=== PATIENT | female | born 1970 | race African-American/Black ===

== ENCOUNTER 2016-06-15 06:59 | Emergency (ER) | payer MEDICARE, OTHER ==
[~2016-06-15] VITALS: Ht 175.3 cm; Wt 86.2 kg
[~2016-06-15 06:59] MED LIST: ACYCLOVIR400 MG ORAL; ALBUTEROL SULF8.5 GM INH; ANUSOL-HC CREAM30 GM RECTAL; ASPIR 8181 MG ORAL; ASPIR 8181 MG PO; ASPIRIN EC325 MG PO; ATORVASTATIN CA40 MG PO; AZITHROMYCIN250 MG ORAL; CLONAZEPAM1 M2 ORAL; DIFLUCAN150 MG PO; HYDROCODON-ACE1 EA15 ORAL; IBUPROFEN600 MG ORAL; IBUPROFEN800 MG ORAL; METOPROLOL TART25 MG ORAL; METOPROLOL TART25 MG PO; METOPROLOL TART50 MG PO; MIRTAZAPINE15 M3 ORAL; MONISTAT VAGIN; NORCO 5-325 TA1 EACH ORAL; PERIDEX 0.12% O15 ML ORAL; PREDNISONE20 MG ORAL; PROAIR HFA8.5 GM INH; PROMETHAZINE-D118 ML ORAL; PROZAC20 MG ORAL; TAMIFLU75 MG ORAL; TESSALON PERLE100 M2 ORAL; ULTRAM50 MG ORAL; VISTARIL50 MG ORAL; [UNRECOGNIZED DRUG - OTHER]; fish oil
[2016-06-15 07:15] VITALS: BP 140/84
[2016-06-15] MEDS ORDERED: TAMIFLU75 MG ORAL (07:24)
[2016-06-15] MEDS ORDERED: AZITHROMYCIN250 MG ORAL (07:24)
--- NOTE | 2016-06-15 07:29 | Emergency Room Report ---
History of Present Illness General Chief Complaint: Flu Like Symptoms Source: Patient Present Illness HPI Patient present with several complaints including chills bodyache Complains of runny nose She reports her symptoms started yesterday Feels that her kids made her sick Denies any vomiting or diarrhea denies any rash Denies any neck pain or photophobia Denies any abdominal pain As the symptoms persisted patient also felt increased sinus congestion and presents to the ER Allergies: Coded Allergies: PENICILLINS (Verified Allergy, Severe, 08/21/13) vaginal yeast MORPHINE (Verified Adverse Reaction, Severe, 08/21/13) headache Patient History Past Medical History: see triage record Pertinent Family History: none Last Menstrual Period: 06/14/16 Reviewed Nursing Documentation: PMH: Agreed, PSxH: Agreed Nursing Documentation-PMH Past Medical History: No History, Except For Hx Cardiac Problems: Yes - 2011 Hx Hypertension: No Hx Pacemaker: No Hx Asthma: No Hx COPD: No Hx Diabetes: No Hx Cancer: No Hx Gastrointestinal Problems: No Hx Dialysis: No Hx Neurological Problems: No Hx Cerebrovascular Accident: No Hx Seizures: No Review of Systems All Other Systems: negative except mentioned in HPI Physical Exam Vital Signs Date Time Temp Pulse Resp B/P Pulse Ox O2 Delivery O2 Flow Rate FiO2 06/15/16 07:07 98.1 60 18 140/84 99 Room Air Sp02 EP Interpretation: reviewed, normal General Appearance: well appearing, no apparent distress Head: normocephalic, atraumatic Eyes: bilateral eye EOMI, bilateral eye PERRL ENT: hearing grossly normal, normal pharynx, TMs + canals normal, uvula midline , other - clear rhinorrhea Neck: full range of motion, supple, no meningismus, no bony tend Respiratory: lungs clear, normal breath sounds, no rhonchi, no respiratory distress, no retraction, no accessory muscle use Cardiovascular #1: normal peripheral pulses, regular rate, rhythm, no edema, no gallop, no JVD, no murmur Gastrointestinal: normal bowel sounds, non tender, soft, no mass, no organomegaly, non-distended, no guarding, no hernia, no pulsatile mass, no rebound Musculoskeletal: normal inspection Neurologic: oriented x3, responsive, solution coordinator III-XII nml as tested, motor strength/ tone normal, sensory intact Psychiatric: mood/affect normal Skin: normal color, no rash, warm/dry, palpation normal Lymphatic: normal inspection, no adenopathy Medical Decision Making Diagnostic Impression: Primary Impression: Influenza-like symptoms ER Course Patient's symptoms appear to be in line with flulike symptoms multiple other differentials are considered, including but not limited to meningitis Patient however has a fairly benign evaluation Onset of symptoms was yesterday Onset of symptoms was yesterday therefore thought patient might criteria for Tamiflu And at this time will have initial conservative outpatient trial Last Vital Signs Date Time Temp Pulse Resp B/P Pulse Ox O2 Delivery O2 Flow Rate FiO2 06/15/16 07:15 60 18 Room Air 06/15/16 07:15 98.1 140/84 99 Status: unchanged Disposition: HOME, SELF-CARE Condition: Stable Scripts Oseltamivir Phosphate (Tamiflu) 75 Mg Capsule 75 MG ORAL TWICE A DAY for 5 Days, CAP Prov: GALLITO RIGGS D.O. 06/15/16 Patient Instructions: Influenza, Adult, [id number], Viral Respiratory Infection Additional Instructions: Patient is provided with the discharge instructions notified to follow up with primary doctor in the next 2-3 days otherwise return to the er with any worsening symptoms. Please note that this report is being documented using MIGSIF technology. This can lead to erroneous entry secondary to incorrect interpretation by the dictating instrument. GALLITO RIGGS D.O. Jun 15, 2016 07:29
[2016-06-15 07:34] VITALS: BP 140/84
== END 2016-06-15 07:34 | disposition home or self-care (01) ==
LOC: EMR 07:33
DX: J11.1 Influenza due to unidentified influenza virus with other respiratory manifestations (principal)
CPT/HCPCS: 99283

== ENCOUNTER 2016-07-02 10:39 | Emergency (ER) | payer MEDICARE, OTHER ==
[~2016-07-02] VITALS: Ht 177.8 cm; Wt 95.3 kg
[2016-07-02] MEDS ORDERED: ACETAMINOPHEN500 M3 ORAL (11:52)
[2016-07-02] MEDS ORDERED: GUAIFENESIN-CO118 M1 ORAL (11:52)
[2016-07-02 12:27] VITALS: BP 143/88
--- NOTE | 2016-07-02 16:09 | Emergency Room Report ---
History of Present Illness General Chief Complaint: Flu Like Symptoms Source: Patient Present Illness HPI Patient reports sinus pressure, cough, congestion and some sense of malaise and muscle, body aches over the last 2 days. Her son is also emerged department with 3 days of symptoms similarly. They both denies sick contacts. Denies fevers denies inability to take by mouth. No diarrhea, nausea or vomiting reported. Patient reports no recent travel or abnormal foods or excessive drinking. No seasonal allergies reported Allergies: Coded Allergies: PENICILLINS (Verified Allergy, Severe, 08/21/13) vaginal yeast MORPHINE (Verified Adverse Reaction, Severe, 08/21/13) headache Patient History Past Medical History: see triage record Social History: Denies: alcohol use, drug use, smoking Last Menstrual Period: 06/11/16 Now: No Immunizations: UTD Reviewed Nursing Documentation: PMH: Agreed Nursing Documentation-PMH Past Medical History: No History, Except For Hx Cardiac Problems: Yes - [place] 4-5 years ago Hx Hypertension: Yes Hx Pacemaker: No Hx Asthma: No Hx COPD: No Hx Diabetes: No Hx Cancer: No Hx Gastrointestinal Problems: No Hx Dialysis: No Hx Neurological Problems: No Hx Cerebrovascular Accident: No Hx Seizures: No Review of Systems Constitutional: Reports: malaise, Denies: chills, fever Respiratory: Reports: cough, Denies: MCLEAN Cardiovascular: Denies: chest pain, edema, palpitations Gastrointestinal: Denies: abdominal pain All Other Systems: negative except mentioned in HPI Physical Exam Vital Signs Date Time Temp Pulse Resp B/P Pulse Ox O2 Delivery O2 Flow Rate FiO2 07/02/16 11:00 98.1 70 16 138/83 99 Room Air Sp02 EP Interpretation: reviewed, normal General Appearance: normal inspection, well appearing, no apparent distress, alert Head: atraumatic Eyes: bilateral eye normal inspection ENT: normal ENT inspection, hearing grossly normal, normal voice Neck: normal inspection, full range of motion, supple, no bony tend Respiratory: normal inspection, lungs clear, normal breath sounds, no respiratory distress, no retraction, no wheezing Cardiovascular #1: regular rate, rhythm, no edema Gastrointestinal: normal inspection, normal bowel sounds, non tender, soft, no guarding, no hernia Genitourinary: no CVA tenderness Musculoskeletal: normal inspection, back normal, normal range of motion Neurologic: normal inspection, alert, responsive, speech normal Psychiatric: normal inspection, judgement/insight normal, mood/affect normal Skin: normal inspection, normal color, no rash Medical Decision Making Diagnostic Impression: Primary Impression: Upper respiratory infection Additional Impression: Influenza-like symptoms ER Course Overall well-appearing woman with no acute abnormal physical findings. History and symptoms are consistent with likely upper respiratory infection, likely caught from her son. Patient was referred to followup with primary care, increase fluid intake and avoid other sick contacts as well as good hygiene, she 'll be given medications for muscle aches as well as cough treatment. Last Vital Signs Date Time Temp Pulse Resp B/P Pulse Ox O2 Delivery O2 Flow Rate FiO2 07/02/16 12:27 73 18 Room Air 07/02/16 12:27 98.1 143/88 99 Disposition: HOME, SELF-CARE Condition: Stable Scripts Guaifenesin/Codeine Phos* (ROBITUSSIN AC*) 118 Ml Liquid 5 ML ORAL Q6H Y for For Cough, #118 ML 0 Refills Prov: Raymond Fishman MD 07/02/16 Acetaminophen* (ACETAMINOPHEN EXTRA STRENGTH*) 500 Mg Tablet 1000 MG ORAL Q8H Y for Fever/Headache/Mild Pain, #30 TAB Prov: Raymond Fishman MD 07/02/16 Referrals: NON PHYSICIAN (PCP) Patient Instructions: Upper Respiratory Infection, Adult, Chest Pain, Pediatric , Upper Respiratory Infection, Pediatric Additional Instructions: p Please followup with your primary care DrSanty, take medications as provided and practice good hygiene, rest and drink plenty of fluids. Raymond Fishman MD Jul 02, 2016 16:09
== END 2016-07-02 12:34 | disposition home or self-care (01) ==
LOC: EMR 12:00
DX: J06.9 Acute upper respiratory infection, unspecified (principal); J11.1 Influenza due to unidentified influenza virus with other respiratory manifestations; Z88.6 Allergy status to analgesic agent; Z88.0 Allergy status to penicillin; I10 Essential (primary) hypertension; I25.2 Old myocardial infarction
CPT/HCPCS: 99284

== ENCOUNTER 2016-10-16 11:43 | Inpatient (IN) | payer MEDICARE, OTHER ==
[2016-10-16] VITALS (8 sets, daily range): BP systolic 124–146; BP diastolic 66–106
[~2016-10-16] VITALS: Ht 175.3 cm; Wt 94.3 kg
[~2016-10-16 11:43] MED LIST changes: +ACETAMINOPHEN500 M3 ORAL; +GUAIFENESIN-CO118 M1 ORAL
[2016-10-16] MEDS ORDERED: Albuterol ud Inhalation HHN ONE (12:30)
[2016-10-16] MEDS ORDERED: Ipratropium 0.02% Inh Soln 2.5ml UD HHN ONE (12:30)
[2016-10-16] MEDS ORDERED: Solu-MEDROL 125mg Inj IVP ONE (12:30)
[2016-10-16 12:50] LABS: BASOPHILS % (AUTO) 0.9 % (0.0-2.0); EOSINOPHILS % (AUTO) 1.9 % (0.0-3.0); LYMPHOCYTES % (AUTO) 31.5 % (20.0-45.0); MEAN CORPUSCULAR HEMOGLOBIN 29.3 PG (27.0-31.0); MEAN CORPUSCULAR HGB CONC 32.6 G/DL (32.0-36.0); MEAN CORPUSCULAR VOLUME 90 FL (80-99); MEAN PLATELET VOLUME 10.5 FL (6.5-10.1); MONOCYTES % (AUTO) 7.1 % (1.0-10.0); NEUTROPHILS % (AUTO) 58.5 % (45.0-75.0); PLATELET COUNT 252 K/UL (150-450); RED BLOOD COUNT 5.04 M/UL (4.20-5.40); RED CELL DISTRIBUTION WIDTH 12.9 % (11.6-14.8); WHITE BLOOD COUNT 3.7 K/UL (4.8-10.8)
[2016-10-16 13:01] LABS: TROPONIN I < 0.30 ng/mL (<=0.30)
[2016-10-16 13:05] LABS: ALANINE AMINOTRANSFERASE 54 U/L (3-33); ALBUMIN/GLOBULIN RATIO 1.3 (1.0-2.7); ANION GAP 12 (5-15); ASPARTATE AMINO TRANSFERASE 64 U/L (5-40); CALCIUM 8.4 mg/dL (8.6-10.2); CARBON DIOXIDE 26 mEQ/L (20-30); CHLORIDE 100 mEQ/L (98-107); GLOMERULAR FILTRATION RATE > 60 mL/min (>60); HEMOLYSIS 10; POTASSIUM 4.3 mEQ/L (3.4-4.9); SODIUM 138 mEQ/L (135-145); TOTAL PROTEIN 6.5 g/dL (6.6-8.7)
[2016-10-16 13:16] LABS: CKMB < 1.5 ng/mL (< 3.8)
[2016-10-16 13:47] LABS: BILIRUBIN,DIRECT 0.2 mg/dL (0.1-0.3)
[2016-10-16] MEDS ORDERED: LORazepam Inj 2mg/ml 1ml IV ONE (14:15)
[2016-10-16 14:25] LABS: APPEARANCE,URINE CLEAR; KETONES,URINE NEGATIVE (NEGATIVE); LEUKOCYTE ESTERASE ,URINE NEGATIVE (NEGATIVE); NITRITE,URINE NEGATIVE (NEGATIVE); PH,URINE 7 (4.5-8.0); PROTEIN,URINE 1+ (NEGATIVE); UROBILINOGEN,URINE 8 MG/DL (0.0-1.0)
[2016-10-16 14:43] LABS: BACTERIA,URINE OCCASIONAL /HPF; HYALINE CASTS, URINE 0-2 /LPF; RBC,URINE 0-2 /HPF (0 - 2); SQUAMOUS EPITHELIAL CELL,UR OCCASIONAL /LPF (NONE/OCC); TRICHOMONAS,URINE FEW /HPF; WBC,URINE 0-2 /HPF (0 - 2)
--- NOTE | 2016-10-16 15:37 | Diagnostic Imaging Report ---
ndication: SOB, chest pain Technique: IV administration nonionic contrast. Spiral acquisitions obtained from the lung bases to the lung apices. Multiplanar and 3-D reconstructions were generated. Total dose length product 1306 mGycm. CTDIvol(s) 12, 12, 126, 34 mGy. Dose reduction achieved using automated exposure control Comparison: None Findings: There is good quality opacification of the pulmonary arteries. No intraluminal filling defects or other findings to suggest acute pulmonary embolus demonstrated. No evidence of thoracic aortic aneurysm or dissection. Pulmonary arteries are ectatic but not frankly dilated. Heart size is normal and there is no evidence of right ventricular dilatation Fairly extensive interstitial septal thickening is seen in the upper lobes bilaterally. This is also seen at the lung bases. The lower lobes and inferior upper lobes demonstrate groundglass opacity in a heterogeneous but diffuse distribution. There are bilateral small pleural effusions. No evidence of pericardial effusion. No mediastinal or hilar mass or adenopathy. Included portions of the thyroid are unremarkable. No axillary or chest wall mass or adenopathy. The included upper abdomen is remarkable for considerable reflux into the hepatic veins. Impression: Negative for evidence of acute pulmonary embolus Diffuse interstitial septal thickening. Bibasilar ground glass opacities. These are nonspecific findings with a wide differential. However, presence of bilateral pleural fluid and hepatic venous reflux suggests central venous hypertension, which raises the possibility of pulmonary edema as etiology of these findings Mild ectasia of the pulmonary arteries, suggestive of but not diagnostic for pulmonary arterial hypertension The CT scanner at [facility] is accredited by the [employer] and the scans are performed using protocols designed to limit radiation exposure to as low as reasonably achievable to attain images of sufficient resolution adequate for diagnostic evaluation.
--- NOTE | 2016-10-16 16:17 | Diagnostic Imaging Report ---
Indication: SOB Technique: One view of the chest Comparison: 10/24/2015 Findings: The heart is borderline enlarged. There is suggestion of mild interstitial congestion. This is probably new or increased from the previous study, although comparison is difficult due to slight differences in exposure technique. Pleural spaces are clear. Small effusions demonstrated on subsequent CT scan are not visible on plain radiography Impression: Interstitial congestion, confirmed on subsequent CT scan. No focal airspace consolidation Borderline cardiomegaly
[2016-10-16 16:20] LABS: ABG BASE EXCESS -2.1; ABG PCO2 32.3 mmHg (35.0-45.0)
[2016-10-16 16:21] LABS: ABG ALLEN TEST POSITIVE
--- NOTE | 2016-10-16 18:36 | Emergency Room Report ---
History of Present Illness General Chief Complaint: Upper Respiratory Illness Source: Patient Present Illness HPI 46-year-old female presents to ED for evaluation. States that she's been increasingly short of breath for the last few weeks. Has been here multiple times for similar presentation. Was told it was a bronchitis or upper respiratory infection. Given breathing treatments and inhalers. States it never helps. Patient states that the shortness of breath is getting worse. States that her PMD believes that his anxiety and prescribed her Xanax which makes her fall sleep. Denies any fevers or chills. Denies cough. Patient is supposed to be referred to a lung specialist but has not yet gotten an appointment. no other aggravating or relieving factors. denies any other assocaited symptoms Allergies: Coded Allergies: PENICILLINS (Verified Allergy, Severe, 08/21/13) vaginal yeast MORPHINE (Verified Adverse Reaction, Severe, 08/21/13) headache Patient History Past Medical History: HTN, [place] Past Surgical History: none Pertinent Family History: none Social History: Denies: alcohol use, drug use, smoking Last Menstrual Period: na Now: No Immunizations: UTD Reviewed Nursing Documentation: PMH: Agreed, PSxH: Agreed Nursing Documentation-PMH Past Medical History: No History, Except For Hx Cardiac Problems: Yes - [place] 4-5 years ago Hx Hypertension: Yes Hx Pacemaker: No Hx Asthma: No Hx COPD: No Hx Diabetes: No Hx Cancer: No Hx Gastrointestinal Problems: No Hx Dialysis: No Hx Neurological Problems: No Hx Cerebrovascular Accident: No Hx Seizures: No Review of Systems All Other Systems: negative except mentioned in HPI Physical Exam Vital Signs Date Time Temp Pulse Resp B/P Pulse Ox O2 Delivery O2 Flow Rate FiO2 10/16/16 11:48 97.7 56 22 124/74 95 Room Air 10/16/16 12:35 2.0 28 Sp02 EP Interpretation: reviewed, normal General Appearance: no apparent distress, alert, GCS 15, non-toxic Head: normocephalic, atraumatic Eyes: bilateral eye PERRL, bilateral eye normal inspection ENT: hearing grossly normal, normal pharynx, no angioedema, normal voice Neck: full range of motion, supple/symm/no masses Respiratory: chest non-tender, lungs clear, normal breath sounds, speaking full sentences Cardiovascular #1: regular rate, rhythm, no edema Cardiovascular #2: 2+ carotid (R), 2+ carotid (L), 2+ radial (R), 2+ radial (L) , 2+ dorsalis pedis (R), 2+ dorsalis pedis (L) Gastrointestinal: normal bowel sounds, non tender, soft, non-distended, no guarding, no rebound Rectal: deferred Genitourinary: normal inspection, no CVA tenderness Musculoskeletal: back normal, gait/station normal, normal range of motion, non- tender Neurologic: alert, oriented x3, responsive, motor strength/tone normal, sensory intact, speech normal Psychiatric: judgement/insight normal, memory normal, mood/affect normal, no suicidal/homicidal ideation Reflexes: 3+ bicep (R), 3+ bicep (L), 3+ tricep (R), 3+ tricep (L), 3+ knee (R) , 3+ knee (L) Skin: normal color, no rash, warm/dry, well hydrated Lymphatic: no adenopathy Medical Decision Making Diagnostic Impression: Primary Impression: Dyspnea Qualified Codes: R06.00 - Dyspnea, unspecified Additional Impression: Hypoxia ER Course Hospital Course 46-year-old female presents to ED complaining of shortness of breath, difficulty breathing Differential diagnoses include: NV/unstable angina, pneumonia, CHF, PE Clinical course Patient placed on stretcher. on cardiac tech. After initial history and physical I ordered labs, EKG, chest x-ray, nebulizer treatments labs reviewed- no leukocytosis, hb/hct stable, electrolytes ok, d-dimer elevated , BNP elevated EKG - NSR, no acute changes interptreted by me Chest x-ray- cardiomegaly, interstitial congestion CTA Chest no PE However patient remains short of breath. ABG shows PO2 in the 60s I believe patient will require admission for further workup Case discussed with Dr. Davila and he agreed to accept the patient to his service for further care and support I. I feel this is a highly complex case requiring extensive working including EKG/Rhythm strip, Xray/CT/US, Blood/urine lab work, repeat exams while in ED, and administration of strong opiates/narcotics for pain control, admission to hospital or close patient follow up. Diagnosis - dyspnea, hypoxia admitted to telemetry in serious condition Labs Test 10/16/16 12:30 10/16/16 13:59 10/16/16 15:53 White Blood Count 3.7 K/UL (4.8-10.8) Red Blood Count 5.04 M/UL (4.20-5.40) Hemoglobin 14.8 G/DL (12.0-16.0) Hematocrit 45.2 % (37.0-47.0) Mean Corpuscular Volume 90 FL (80-99) Mean Corpuscular Hemoglobin 29.3 PG (27.0-31.0) Mean Corpuscular Hemoglobin Concent 32.6 G/DL (32.0-36.0) Red Cell Distribution Width 12.9 % (11.6-14.8) Platelet Count 252 K/UL (150-450) Mean Platelet Volume 10.5 FL (6.5-10.1) Neutrophils (%) (Auto) 58.5 % (45.0-75.0) Lymphocytes (%) (Auto) 31.5 % (20.0-45.0) Monocytes (%) (Auto) 7.1 % (1.0-10.0) Eosinophils (%) (Auto) 1.9 % (0.0-3.0) Basophils (%) (Auto) 0.9 % (0.0-2.0) D-Dimer 682 ng/mL (<500) Sodium Level 138 mEQ/L (135-145) Potassium Level 4.3 mEQ/L (3.4-4.9) Chloride Level 100 mEQ/L (98-107) Carbon Dioxide Level 26 mEQ/L (20-30) Anion Gap 12 (5-15) Blood Urea Nitrogen 11 mg/dL (7-23) Creatinine 1.0 mg/dL (0.5-0.9) Estimat Glomerular Filtration Rate > 60 mL/min (>60) Glucose Level 78 mg/dL (74-106) Calcium Level 8.4 mg/dL (8.6-10.2) Total Bilirubin 1.2 mg/dL (0.0-1.2) Direct Bilirubin 0.2 mg/dL (0.1-0.3) Aspartate Amino Transf (AST/SGOT) 64 U/L (5-40) Alanine Aminotransferase (ALT/SGPT) 54 U/L (3-33) Alkaline Phosphatase 91 U/L (35-104) Total Creatine Kinase 74 U/L (26-140) Creatine Kinase MB < 1.5 ng/mL (< 3.8) Creatine Kinase MB Relative Index 2.0 Troponin I < 0.30 ng/mL (<=0.30) Pro-B-Type Natriuretic Peptide 734 pg/mL (0-125) Total Protein 6.5 g/dL (6.6-8.7) Albumin 3.7 g/dL (3.5-5.2) Globulin 2.8 g/dL Albumin/Globulin Ratio 1.3 (1.0-2.7) Urine Color Yellow Urine Appearance Clear Urine pH 7 (4.5-8.0) Urine Specific [place] 1.015 (1.005-1.035) Urine Protein 1+ (NEGATIVE) Urine Glucose (UA) Negative (NEGATIVE) Urine Ketones Negative (NEGATIVE) Urine Occult Blood Negative (NEGATIVE) Urine Nitrite Negative (NEGATIVE) Urine Bilirubin Negative (NEGATIVE) Urine Urobilinogen 8 MG/DL (0.0-1.0) Urine Leukocyte Esterase Negative (NEGATIVE) Urine RBC 0-2 /HPF (0 - 2) Urine WBC 0-2 /HPF (0 - 2) Urine Squamous Epithelial Cells Occasional /LPF Urine Bacteria Occasional /HPF (NONE) Urine Hyaline Casts 0-2 /LPF (NONE) Urine Trichomonas Few /HPF (NONE) Urine HCG, Qualitative Negative Arterial Blood pH 7.433 (7.350-7.450) Arterial Blood Partial Pressure CO2 32.3 mmHg (35.0-45.0) Arterial Blood Partial Pressure O2 64.0 mmHg (75.0-100.0) Arterial Blood HCO3 21.1 mmol/L (22.0-26.0) Arterial Blood Oxygen Saturation 83.9 % (92.0-98.0) Arterial Blood Base Excess -2.1 Yaniv Test Positive EKG Diagnostic Results Rate: normal Rhythm: NSR ST Segments: no acute changes ASA given to the pt in ED: No Rhythm Strip Diag. Results EP Interpretation: yes Rhythm: NSR, no PVC's, no ectopy Chest X-Ray Diagnostic Results Chest X-Ray Ordered: Yes # of Views/Limited/Complete: 1 View Interpretation: no consolidation, no effusion, no pneumothorax, no acute cardiopulmonary disease Indication: Shortness of Breath Impression: Other - interstitial congestion. borderline cardiomegaly Date Electronically Signed: Oct 16, 2016 Time Electronically Signed: 18:42 Interpreting ER Physician: Dmitri Evans MD CT/MRI/US Diagnostic Results CT/MRI/US Diagnostic Results : Imaging Test Ordered: CTA chest Impression no evidence of PE. ? pulmonary hypertension Last Vital Signs Date Time Temp Pulse Resp B/P Pulse Ox O2 Delivery O2 Flow Rate FiO2 10/16/16 18:15 63 18 140/106 99 Non-Rebreather 10.0 10/16/16 13:43 98.1 28 Status: improved Disposition: ADMITTED INPATIENT Condition: Serious Referrals: [facility],REFERRING (PCP) DMITRI EVANS M.D. Oct 16, 2016 18:36
--- NOTE | 2016-10-16 20:24 | Cardiology Progress Note ---
Assessment/Plan Assessment/Plan The patient is seen and examined, full consult note is dictated. Objective Last 24 Hour Vital Signs Date Time Temp Pulse Resp B/P Pulse Ox O2 Delivery O2 Flow Rate FiO2 10/16/16 20:00 98.7 64 22 146/87 100 Non-Rebreather 10.0 10/16/16 18:59 98.1 63 18 140/106 99 Non-Rebreather 10.0 10/16/16 18:15 63 18 140/106 99 Non-Rebreather 10.0 10/16/16 17:17 58 18 145/89 93 Non-Rebreather 10.0 10/16/16 15:56 61 18 141/82 91 Non-Rebreather 10.0 10/16/16 15:05 74 18 129/75 99 Nasal Cannula 2.0 10/16/16 13:43 98.1 71 18 125/90 100 Nasal Cannula 2.0 28 10/16/16 12:39 78 20 100 Nasal Cannula 2.0 28 10/16/16 12:38 28 10/16/16 12:37 76 20 100 Nasal Cannula 2.0 28 10/16/16 12:35 76 20 Nasal Cannula 2.0 28 10/16/16 11:57 56 22 Room Air 10/16/16 11:57 97.7 22 124/74 95 Room Air 10/16/16 11:48 97.7 56 22 124/74 95 Room Air Laboratory Tests Test 10/16/16 12:30 10/16/16 13:59 10/16/16 15:53 White Blood Count 3.7 K/UL (4.8-10.8) L Red Blood Count 5.04 M/UL (4.20-5.40) Hemoglobin 14.8 G/DL (12.0-16.0) Hematocrit 45.2 % (37.0-47.0) Mean Corpuscular Volume 90 FL (80-99) Mean Corpuscular Hemoglobin 29.3 PG (27.0-31.0) Mean Corpuscular Hemoglobin Concent 32.6 G/DL (32.0-36.0) Red Cell Distribution Width 12.9 % (11.6-14.8) Platelet Count 252 K/UL (150-450) Mean Platelet Volume 10.5 FL (6.5-10.1) H Neutrophils (%) (Auto) 58.5 % (45.0-75.0) Lymphocytes (%) (Auto) 31.5 % (20.0-45.0) Monocytes (%) (Auto) 7.1 % (1.0-10.0) Eosinophils (%) (Auto) 1.9 % (0.0-3.0) Basophils (%) (Auto) 0.9 % (0.0-2.0) D-Dimer 682 ng/mL (<500) H Sodium Level 138 mEQ/L (135-145) Potassium Level 4.3 mEQ/L (3.4-4.9) Chloride Level 100 mEQ/L (98-107) Carbon Dioxide Level 26 mEQ/L (20-30) Anion Gap 12 (5-15) Blood Urea Nitrogen 11 mg/dL (7-23) Creatinine 1.0 mg/dL (0.5-0.9) H Estimat Glomerular Filtration Rate > 60 mL/min (>60) Glucose Level 78 mg/dL (74-106) Calcium Level 8.4 mg/dL (8.6-10.2) L Total Bilirubin 1.2 mg/dL (0.0-1.2) Direct Bilirubin 0.2 mg/dL (0.1-0.3) Aspartate Amino Transf (AST/SGOT) 64 U/L (5-40) H Alanine Aminotransferase (ALT/SGPT) 54 U/L (3-33) H Alkaline Phosphatase 91 U/L (35-104) Total Creatine Kinase 74 U/L (26-140) Creatine Kinase MB < 1.5 ng/mL (< 3.8) Creatine Kinase MB Relative Index 2.0 Troponin I < 0.30 ng/mL (<=0.30) Pro-B-Type Natriuretic Peptide 734 pg/mL (0-125) H Total Protein 6.5 g/dL (6.6-8.7) L Albumin 3.7 g/dL (3.5-5.2) Globulin 2.8 g/dL Albumin/Globulin Ratio 1.3 (1.0-2.7) Urine Color Yellow Urine Appearance Clear Urine pH 7 (4.5-8.0) Urine Specific [place] 1.015 (1.005-1.035) Urine Protein 1+ (NEGATIVE) H Urine Glucose (UA) Negative (NEGATIVE) Urine Ketones Negative (NEGATIVE) Urine Occult Blood Negative (NEGATIVE) Urine Nitrite Negative (NEGATIVE) Urine Bilirubin Negative (NEGATIVE) Urine Urobilinogen 8 MG/DL (0.0-1.0) H Urine Leukocyte Esterase Negative (NEGATIVE) Urine RBC 0-2 /HPF (0 - 2) Urine WBC 0-2 /HPF (0 - 2) Urine Squamous Epithelial Cells Occasional /LPF Urine Bacteria Occasional /HPF (NONE) Urine Hyaline Casts 0-2 /LPF (NONE) H Urine Trichomonas Few /HPF (NONE) H Urine HCG, Qualitative Negative Urine Opiates Screen Negative (NEGATIVE) Urine Barbiturates Screen Negative (NEGATIVE) Phencyclidine (PCP) Screen Negative (NEGATIVE) Urine Amphetamines Screen Negative (NEGATIVE) Urine Benzodiazepines Screen Positive (NEGATIVE) H Urine Cocaine Screen Negative (NEGATIVE) Urine Marijuana (THC) Screen Positive (NEGATIVE) H Arterial Blood pH 7.433 (7.350-7.450) Arterial Blood Partial Pressure CO2 32.3 mmHg (35.0-45.0) L Arterial Blood Partial Pressure O2 64.0 mmHg (75.0-100.0) L Arterial Blood HCO3 21.1 mmol/L (22.0-26.0) L Arterial Blood Oxygen Saturation 83.9 % (92.0-98.0) L Arterial Blood Base Excess -2.1 Yaniv Test Positive HUDSON MAGALLON Oct 16, 2016 20:24
[2016-10-16] MEDS ORDERED: ALPRAZOLAM1 MG ORAL (21:00)
[2016-10-16] MEDS ORDERED: DuoNeb 0.5-3(2.5)mg/3ml neb HHN PRN (21:30)
--- NOTE | 2016-10-17 00:30 | Consultation ---
DATE OF CONSULTATION: 10/16/2016 CARDIOLOGY CONSULTATION REFERRING PHYSICIAN: Jd Davila M.D. REASON FOR CONSULTATION: Management of dyspnea. HISTORY OF PRESENT ILLNESS: The patient is a very pleasant 46-year-old female, who presents to the hospital for evaluation and management of dyspnea. The patient has been having trouble with dyspnea in the past. She states that in the past it has been worse. She has been under full cardiac workup by her felt puller, who concluded that her shortness of breath is not caused by her heart. She is awaiting to see a Pulmonary as an outpatient. She decided to come to the hospital as the shortness of breath was going out of control. She said that she works out about five weeks a week and does not seem to have trouble with shortness of breath, however, she does get wheezing and she has reported her wheezing for lung specialist. Denies any prior history of congestive heart failure. PAST MEDICAL HISTORY: Questionable myocardial infarction in the past as well as history of hypertension. As mentioned above cardiac workup by felt puller has been negative. PAST SURGICAL HISTORY: None. MEDICATIONS: List of medications at home includes acetaminophen 1000 mg q.8 h. p.r.n. fever, headaches and migraine, aspirin 81 mg p.o. daily, both in the list of medications, atorvastatin 40 mg p.o. daily, clonazepam 1 mg p.o. at bedtime, Prozac 20 mg p.o. daily, metoprolol 25 mg three times daily, and mirtazapine 7.5 mg at bedtime. ALLERGIES: Penicillin and morphine. FAMILY HISTORY: No premature coronary artery disease in first-degree relatives. REVIEW OF SYSTEMS: A 12-system review done essentially negative except what mentioned in the history of present illness. SOCIAL HISTORY: Denies any tobacco, alcohol, or illicit drug use. PHYSICAL EXAMINATION: VITAL SIGNS: Blood pressure is 146/87, respirations 32, pulse of 64, temperature 98.7 degrees Fahrenheit, and O2 saturation of 100% on non-rebreather mask 10 liters per minute flow. HEENT: Atraumatic and normocephalic. Anicteric. Pupils are equal, round, and reactive to light and accommodation. Extraocular muscles intact. NECK: JVP less than 5 centimeter. No carotid bruits. Carotid upstrokes 2+ bilaterally. CARDIOVASCULAR: Normal S1 and S2. Regular rate and rhythm. No murmurs, gallops, or rubs. PMI is at fourth intercostal space in the mid clavicular line. LUNGS: Clear to auscultation bilaterally. ABDOMEN: Soft, nontender, and nondistended. No hepatosplenomegaly. Positive bowel sounds. EXTREMITIES: No evidence of edema, clubbing, or cyanosis. LABORATORY AND DIAGNOSTIC DATA: Chest x-ray shows no acute cardiopulmonary disease. A CT of chest with contrast showed no evidence of pulmonary embolism. Laboratory findings, WBC is 3.7, hemoglobin of 14.8, hematocrit of 45.2, and platelet count is 252,000. Sodium was 138, potassium 4.3, chloride 100, bicarbonate 26, BUN of 11, creatinine 1.0 and glucose 78. Calcium is 8.4. ProBNP was 734. Troponin I less than 0.3. Her D-dimer is 682. Toxicology was positive for benzodiazepines and marijuana. ASSESSMENT AND PLAN: The patient is a very unfortunate 36-year-old female, seen in Cardiology consultation at request of Dr. Davila. 1. Dyspnea, unlikely to be cardiac in origin, although there is some elevation of proBNP and chest x-ray is showing no evidence of crackles. Chest x-ray also appears to be clear. I would like to obtain 2D echocardiography for assessment of left ventricular systolic and diastolic function and also evaluation of intracardiac filling pressures. 2. History of hypertension, the patient is currently on metoprolol. We may have to switch the patient on amlodipine for better control. I would like to thank, Dr. Davila, for allowing me to participate in the care of this patient. Freddy Quan M.D. DR: ALEXEI JOB#: [id number] CC:
--- NOTE | 2016-10-17 12:15 | Discharge Summary ---
Discharge Summary Hospital Course Date of Admission Oct 16, 2016 at 18:22 Date of Discharge Oct 16, 2016 at 23:30 Admitting Diagnosis SOB HPI Fauzia Schuster is a 46 year old female who was admitted on Oct 16, 2016 at 18: 22 for Short Of Breath Hospital Course [id number] Discharge Discharge Disposition Patient was discharged to Acute Care Facility(02) Discharge Diagnoses: Kasey Gupta NP Oct 17, 2016 12:15
--- NOTE | 2016-10-18 02:30 | History and Physical Report ---
DATE OF ADMISSION: 10/16/2016 HISTORY OF PRESENT ILLNESS: This is a 46-year-old female, who came to the hospital with dyspnea. She is . She reports that she has had a previous workup with Cardiology that has been negative. Apparently, she has some issues with Pulmonology and will be seen ____ outpatient. PAST MEDICAL HISTORY: She had crackles with auscultation pulmonary fibrosis. unremarkable. MEDICATIONS: Home medications Lipitor, clonazepam, Prozac, metoprolol, mirtazapine, and morphine. REVIEW OF SYSTEMS: Denies any headaches, hematemesis, melena, hematochezia, . PHYSICAL EXAMINATION: GENERAL: The patient is a 46-year-old female. VITAL SIGNS: . HEENT: Unremarkable. CHEST: Clear breath sounds bilaterally. ABDOMEN: Soft. EXTREMITIES: There is no edema. No cyanosis or clubbing. NEUROLOGIC: Nonfocal. LABORATORY DATA: Unremarkable. IMPRESSION: 1. Probable pulmonary fibrosis. 2. Rule out congestive heart failure. DISCUSSION: The patient will be seen by Cardiology . At this point, she is stable for transfer to facility. Discussed with . We will arrange transfer to facility. Jd Davila M.D. DR: Merlin JOB#: [id number] CC:
--- NOTE | 2016-10-18 09:30 | Discharge Summary 2 SIG ---
DATE OF ADMISSION: 10/16/2016 DATE OF DISCHARGE: 10/16/2016 [facility]: Freddy Quan M.D. BRIEF HOSPITAL COURSE: The patient is a 46-year-old female, who presented to ED complaining of upper respiratory illness and was previously diagnosed with bronchitis and upper respiratory infection and was given breathing treatments and inhalers, however, treatment did not help. She presented to ED with worsening symptoms and on evaluation labs showed no leukocytosis. D-dimer was elevated. BNP was elevated. Chest x-ray showed interstitial congestion. She was given nebulizer treatments and ABG showed PO2 in the 60s. The patient remained short of breath. She was admitted to telemetry. CTA of the chest done was negative for PE. She was seen by Dr. Quan. She was eventually transferred to [facility]. FINAL DIAGNOSES: 1. Probable pulmonary fibrosis. 2. Rule out congestive heart failure. Jd Davila M.D. I have been assigned to dictate discharge summary on this account and I was not involved in the patient's management. Kasey Gupta N.P. DR: NAVNEET JOB#: [id number] CC: VIOLETA
== END 2016-10-16 23:30 | disposition short-term general hospital (02) | DRG 204 ==
LOC: EMR 12:18 → 2E 18:22 → EDBEDREQ 18:32 → 2E 20:14
DX: R06.00 Dyspnea, unspecified (principal); I10 Essential (primary) hypertension; R09.02 Hypoxemia; Z88.6 Allergy status to analgesic agent
CPT/HCPCS: 36415; 36600; 71010; 71275; 80053; 80300; 81003; 81025; 82248; 82550; 82553; 82803; 83880; 84484; 85025; 85379; 93005; 94640; 94664; J7620

== ENCOUNTER 2016-12-04 16:09 | Emergency (ER) | payer MEDICARE, OTHER ==
[~2016-12-04] VITALS: Ht 177.8 cm; Wt 89.8 kg
[~2016-12-04 16:09] MED LIST changes: +ALPRAZOLAM1 MG ORAL
[2016-12-04 17:06] LABS: APPEARANCE,URINE SLIGHTLY CLOUDY; KETONES,URINE NEGATIVE (NEGATIVE); LEUKOCYTE ESTERASE ,URINE 3+ (NEGATIVE); NITRITE,URINE NEGATIVE (NEGATIVE); PH,URINE 5 (4.5-8.0); PROTEIN,URINE NEGATIVE (NEGATIVE); UROBILINOGEN,URINE NORMAL MG/DL (0.0-1.0)
[2016-12-04 17:14] LABS: BACTERIA,URINE FEW /HPF; SQUAMOUS EPITHELIAL CELL,UR MODERATE /LPF (NONE/OCC)
[2016-12-04 17:21] VITALS: BP 153/89
[2016-12-04] MEDS ORDERED: METRONIDAZOLE500 MG ORAL (17:26)
[2016-12-04 17:31] VITALS: BP 153/89
--- NOTE | 2016-12-04 21:43 | Emergency Room Report ---
History of Present Illness General Chief Complaint: Female Urogenital Problems Source: Patient Present Illness [facility] The patient is a 46-year-old female presenting for vaginal itching and pain. This began yesterday. She admits to having intercourse with her male partner recently for the first time. Pain described as an 8/10 burning sensation to the vaginal area. She has had a thin white vaginal discharge. Pain does not radiate. Worse with touch. She denies dysuria, hematuria. She denies any back pain or other symptoms Allergies: Coded Allergies: PENICILLINS (Verified Allergy, Severe, 08/21/13) vaginal yeast MORPHINE (Verified Adverse Reaction, Severe, 08/21/13) headache Patient History Past Medical History: see triage record Pertinent Family History: none Last Menstrual Period: on period now Now: No Reviewed Nursing Documentation: PMH: Agreed, PSxH: Agreed Nursing Documentation-PMH Hx Cardiac Problems: Yes - [place] 4-5 years ago Hx Hypertension: Yes Hx Pacemaker: No Hx Asthma: No Hx COPD: No Hx Diabetes: No Hx Cancer: No Hx Gastrointestinal Problems: No Hx Dialysis: No Hx Neurological Problems: No Hx Cerebrovascular Accident: No Hx Seizures: No Review of Systems All Other Systems: negative except mentioned in HPI Physical Exam Vital Signs Date Time Temp Pulse Resp B/P Pulse Ox O2 Delivery O2 Flow Rate FiO2 12/04/16 16:17 98.1 65 14 158/92 99 Room Air Sp02 EP Interpretation: reviewed, normal General Appearance: no apparent distress, alert, GCS 15, non-toxic Head: normocephalic, atraumatic Eyes: bilateral eye PERRL, bilateral eye normal inspection ENT: hearing grossly normal, normal pharynx, no angioedema, normal voice Neck: full range of motion, supple/symm/no masses Gastrointestinal: normal bowel sounds, non tender, soft, non-distended, no guarding, no rebound Genitourinary: normal inspection, no CVA tenderness Musculoskeletal: back normal, gait/station normal, normal range of motion, non- tender Neurologic: alert, oriented x3, responsive, motor strength/tone normal, sensory intact, speech normal Psychiatric: judgement/insight normal, memory normal, mood/affect normal, no suicidal/homicidal ideation Skin: normal color, no rash, warm/dry, well hydrated Medical Decision Making PA Attestation Dr. Chavez is my supervising physician. Patient management was discussed with my supervising physician Diagnostic Impression: Primary Impression: BV (bacterial vaginosis) ER Course The patient is a 46-year-old female presenting for vaginal itching, pain, and discharge Differential diagnosis considered but not limited to: UTI, vaginitis, pyelonephritis, STD, among others Physical exam is unremarkable Urinalysis shows white blood cells with few bacteria. Negative nitrites. The patient will be treated for BV based on symptoms primarily. She will follow up with primary doctor. ER precautions are given Laboratory Tests Test 12/04/16 16:33 Urine Color Yellow Urine Appearance Slightly cloudy Urine pH 5 (4.5-8.0) Urine Specific [place] 1.025 (1.005-1.035) Urine Protein Negative (NEGATIVE) Urine Glucose (UA) Negative (NEGATIVE) Urine Ketones Negative (NEGATIVE) Urine Occult Blood 2+ (NEGATIVE) H Urine Nitrite Negative (NEGATIVE) Urine Bilirubin Negative (NEGATIVE) Urine Urobilinogen Normal MG/DL (0.0-1.0) Urine Leukocyte Esterase 3+ (NEGATIVE) H Urine RBC 5-10 /HPF (0 - 2) H Urine WBC 5-10 /HPF (0 - 2) H Urine Squamous Epithelial Cells Moderate /LPF (NONE/OCC) H Urine Bacteria Few /HPF (NONE) Lab Results Impression Urinalysis shows white blood cells with some bacteria. Last Vital Signs Date Time Temp Pulse Resp B/P Pulse Ox O2 Delivery O2 Flow Rate FiO2 12/04/16 17:31 98.3 69 15 153/89 99 Room Air Status: improved Disposition: HOME, SELF-CARE Condition: Improved Scripts Metronidazole* (FLAGYL*) 500 Mg Tablet 500 MG ORAL Q12HR, #14 TAB Prov: MAJO ALVES 12/04/16 Patient Instructions: Bacterial Vaginosis Additional Instructions: I discussed my findings with the patient. All questions and concerns have been answered. Treatment and medication compliance have been addressed. I advised the patient that they need to follow up with PMD in 3-5 days. Return to ED if symptoms worsen, new symptoms arise, or if needed for any reason. Patient verbalized understanding of discharge instructions. MAJO ALVES Dec 04, 2016 21:43
== END 2016-12-04 17:32 | disposition home or self-care (01) ==
LOC: EMR 16:51
DX: N76.0 Acute vaginitis (principal); I10 Essential (primary) hypertension; I25.2 Old myocardial infarction
CPT/HCPCS: 81003; 99283

== ENCOUNTER 2017-01-24 20:29 | Emergency (ER) | payer MEDICARE, OTHER ==
[~2017-01-24] VITALS: Ht 177.8 cm; Wt 99.8 kg
[~2017-01-24 20:29] MED LIST changes: +METRONIDAZOLE500 MG ORAL
[2017-01-24] MEDS ORDERED: NORCO 5-325 TA1 EACH ORAL (20:46)
[2017-01-24 20:50] VITALS: BP 167/90
[2017-01-24] MEDS ORDERED: LD2JL30 TOPIC (20:56)
[2017-01-24] MEDS ORDERED: COLACE100 MG ORAL (20:56)
[2017-01-24] MEDS ORDERED: fentaNYL 100 mcg/2 mL IV ONE (21:00)
--- NOTE | 2017-01-24 21:03 | Emergency Room Report ---
History of Present Illness General Chief Complaint: Pain Source: Patient Present Illness HPI 46YOF walk-in with severe pain s/p outpatient surgery at [facility] this morning for "dysplasia of rectum." After she went home and "numbing medication wore off" took multiple doses of norco without improvement Does not have other pain meds or stool softener Is "scared to have a bowel movement." Denies adb pain, nausea/vomiting, blood in stool, rectal bleed Had same surgery last year without this much post-op pain Allergies: Coded Allergies: PENICILLINS (Verified Allergy, Severe, 08/21/13) vaginal yeast MORPHINE (Verified Adverse Reaction, Severe, 08/21/13) headache Patient History Past Medical History: none Past Surgical History: none Pertinent Family History: none Social History: Denies: smoking, alcohol use, drug use Last Menstrual Period: Last month Now: No Immunizations: UTD Reviewed Nursing Documentation: PMH: Agreed, PSxH: Agreed Nursing Documentation-PMH Past Medical History: No History, Except For Hx Cardiac Problems: Yes - [place] 4-5 years ago Hx Hypertension: No Hx Pacemaker: No Hx Asthma: No Hx COPD: No Hx Diabetes: No Hx Cancer: No Hx Gastrointestinal Problems: No Hx Dialysis: No Hx Neurological Problems: No Hx Cerebrovascular Accident: No Hx Seizures: No Review of Systems All Other Systems: negative except mentioned in HPI Physical Exam Vital Signs Date Time Temp Pulse Resp B/P (MAP) Pulse Ox O2 Delivery O2 Flow Rate FiO2 01/24/17 20:40 98.4 79 16 167/90 98 Room Air Sp02 EP Interpretation: reviewed, normal General Appearance: normal inspection, well appearing, no apparent distress, alert, GCS 15, non-toxic, other - Writhing, tearful Head: normocephalic, atraumatic Eyes: bilateral eye PERRL, bilateral eye EOMI Neck: normal inspection, full range of motion, supple, no bony tend Respiratory: normal inspection, lungs clear, normal breath sounds, no respiratory distress, no retraction, no wheezing Cardiovascular #1: regular rate, rhythm, no edema Gastrointestinal: normal inspection, normal bowel sounds, non tender, soft, no guarding, no hernia Rectal: normal exam, normal rectal tone, other - There are 2-3 small sutures at 9'oclock position on rectum. Mild ttp. No active bleeding. No ttp or induration/erythema amy-rectally Genitourinary: no CVA tenderness Musculoskeletal: normal inspection, back normal, normal range of motion, Mayra' s Sign negative Neurologic: normal inspection, alert, oriented x3, responsive, firer tunnel kiln III-XII nml as tested, motor strength/tone normal, speech normal Psychiatric: normal inspection, judgement/insight normal, mood/affect normal Skin: normal inspection, normal color, no rash Lymphatic: normal inspection Medical Decision Making Diagnostic Impression: Primary Impression: Rectal pain ER Course Post-op rectal pain Pain at suture/laceration site at 9'oclock Likely normal post-op pain Unlikely rectal abscess/infection given surgery was <12 hours prior No pus, no drainage, no active bleeding or sign of infection Was given IV fentanyl in ED for pain control Rx Colace Rx Topical lido Strongly encouraged to call her surgeon TOMORROW Last Vital Signs Date Time Temp Pulse Resp B/P (MAP) Pulse Ox O2 Delivery O2 Flow Rate FiO2 01/24/17 20:40 98.4 79 16 167/90 98 Room Air Status: improved Disposition: HOME, SELF-CARE Condition: Improved Scripts Lidocaine HCL 2% Jelly* (Lidocaine Jelly 2%*) 5 Ml Jel.pf.pradeep 5 ML TOPIC TID for rectal pain for 7 Days, #1 UNIT Prov: KEYON VARELA M.D. 01/24/17 Docusate Sodium* (COLACE*) 100 Mg Capsule 100 MG ORAL TWICE A DAY for 7 Days, #14 CAP Prov: KEYON VARELA M.D. 01/24/17 Patient Instructions: Laceration Care, Adult, [id number] Additional Instructions: - Call your surgeon TOMORROW that you had to go to the ER with severe rectal pain - Take colace twice a day as long as you are taking [place] for pain - Can also apply lidocaine jelly to are of pain on rectum KEYON VARELA M.D. Jan 24, 2017 21:03
[2017-01-24 21:35] VITALS: BP 167/90
== END 2017-01-24 21:35 | disposition home or self-care (01) ==
LOC: EMR 21:22
DX: K62.89 Other specified diseases of anus and rectum (principal); Z98.890 Other specified postprocedural states; I25.2 Old myocardial infarction; Z88.6 Allergy status to analgesic agent; Z88.2 Allergy status to sulfonamides
CPT/HCPCS: 96374; 99284; J3010

== ENCOUNTER 2017-12-21 09:27 | Emergency (ER) | payer MEDICARE ==
[~2017-12-21] VITALS: Ht 177.8 cm; Wt 106.1 kg
[~2017-12-21 09:27] MED LIST changes: +COLACE100 MG ORAL; +LD2JL30 TOPIC
[2017-12-21] MEDS ORDERED: ROBAXIN-750750 MG PO (09:34)
[2017-12-21] MEDS ORDERED: Ketorolac 60mg Inj IM ONE (10:00)
[2017-12-21 10:33] LABS: APPEARANCE,URINE CLEAR; BILIRUBIN, URINE NEGATIVE (NEGATIVE); COLOR,URINE PALE YELLOW; GLUCOSE, URINE (UA) NEGATIVE (NEGATIVE); KETONES,URINE NEGATIVE (NEGATIVE); LEUKOCYTE ESTERASE ,URINE 2+ (NEGATIVE); NITRITE,URINE NEGATIVE (NEGATIVE); PH,URINE 5 (4.5-8.0); PROTEIN,URINE NEGATIVE (NEGATIVE); UROBILINOGEN,URINE NORMAL MG/DL (0.0-1.0)
--- NOTE | 2017-12-21 11:18 | Diagnostic Imaging Report ---
Chest PA and lateral views INDICATION: Pain COMPARISON: Chest x-ray dated 10/16/16 FINDINGS: PA and lateral views of the chest are obtained. The cardiomediastinal silhouette is within normal limits. Increased pulmonary markings suggestive of congestion. No pleural effusions. Bony elements are within normal limits. IMPRESSION: Increased pulmonary markings suggestive of congestion.
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
[2017-12-21] MEDS ORDERED: PERCOCET 5-3251 EACH ORAL (12:09)
[2017-12-21] MEDS ORDERED: NITROFURANTOIN100 M2 ORAL (12:09)
[2017-12-21 12:22] VITALS: BP 140/80
== END 2017-12-21 12:22 | disposition home or self-care (01) ==
LOC: EMR 09:48
DX: N39.0 Urinary tract infection, site not specified (principal); M54.9 Dorsalgia, unspecified; V42 Car occupant injured in collision with two- or three-wheeled motor vehicle; Y92.410 Unspecified street and highway as the place of occurrence of the external cause; I25.2 Old myocardial infarction; Z88.0 Allergy status to penicillin; Z88.8 Allergy status to other drugs, medicaments and biological substances
CPT/HCPCS: 71046; 81001; 81025; 87086; 87181; 96372; 99283

== ENCOUNTER 2018-01-28 07:54 | Emergency (ER) | payer MEDICARE, MEDICAID ==
[~2018-01-28] VITALS: Ht 177.8 cm; Wt 108.0 kg
[~2018-01-28 07:54] MED LIST changes: +NITROFURANTOIN100 M2 ORAL; +PERCOCET 5-3251 EACH ORAL; +ROBAXIN-750750 MG PO
[2018-01-28 08:00] VITALS: BP 137/87
--- NOTE | 2018-01-28 08:50 | Emergency Room Report ---
History of Present Illness General Chief Complaint: General Complaint Source: Patient Present Illness HPI This patient is complaining of insomnia. She has used Ambien, Ativan in the past but states her PMD is out of town. Requested prescriptions. No trauma, no fever, no shortness of breath, no travel history, no leg swelling, no chest pain , no diaphoresis, no exertional complaints, no nausea, no vomiting, no diarrhea , no abdominal pain. Tolerating po fine, normal urinary output, normal bm. No syncope, LOC, dizziness, lightheadedness, headache. No recent surgery. Allergies: Coded Allergies: PENICILLINS (Verified Allergy, Severe, 08/21/13) vaginal yeast MORPHINE (Verified Adverse Reaction, Severe, 08/21/13) headache Patient History Last Menstrual Period: 12/20/2017 Nursing Documentation-[facility] Past Medical History: No History, Except For Hx Cardiac Problems: Yes - [place] 2010 Hx Hypertension: No Hx Pacemaker: No Hx Asthma: No Hx COPD: No Hx Diabetes: No Hx Cancer: No Hx Gastrointestinal Problems: No Hx Dialysis: No Hx Neurological Problems: No Hx Cerebrovascular Accident: No Hx Seizures: No Review of Systems Constitutional: Reports: no symptoms Eye: Reports: no symptoms ENT: Reports: no symptoms Respiratory: Reports: no symptoms Cardiovascular: Reports: no symptoms Gastrointestinal: Reports: no symptoms Genitourinary: Reports: no symptoms Musculoskeletal: Reports: no symptoms Skin: Reports: no symptoms Psychiatric: Reports: no symptoms Neurological: Reports: no symptoms Endocrine: Reports: no symptoms Hematologic/Lymphatic: Reports: no symptoms Allergic: Reports: no symptoms All Other Systems: negative except mentioned in HPI Physical Exam Vital Signs Date Time Temp Pulse Resp B/P (MAP) Pulse Ox O2 Delivery O2 Flow Rate FiO2 01/28/18 08:00 97.8 63 14 137/87 96 Room Air 97.8 Sp02 EP Interpretation: reviewed, normal General Appearance: normal inspection, well appearing, no apparent distress, alert, GCS 15, non-toxic Head: normocephalic, atraumatic Eyes: bilateral eye normal inspection, bilateral eye PERRL, bilateral eye EOMI ENT: normal ENT inspection, hearing grossly normal, normal pharynx, no angioedema, normal voice, moist mucus membranes Neck: normal inspection, full range of motion, supple, no meningismus, no bony tend Respiratory: normal inspection, lungs clear, normal breath sounds, no rhonchi, no respiratory distress, no retraction, no accessory muscle use, no wheezing Cardiovascular #1: normal inspection, regular rate, rhythm, no edema Gastrointestinal: normal inspection, normal bowel sounds, non tender, soft, no mass, non-distended Musculoskeletal: gait/station normal, normal range of motion Neurologic: normal inspection, alert, oriented x3, responsive, motor strength/ tone normal Psychiatric: normal inspection, judgement/insight normal, memory normal Suicide Risk Assessment: Suicidal Ideation: No Had intent to initiate attempt: No Pt's plan for suicide attempt: No Has means to complete attempt: No Skin: normal inspection, normal color, no rash, warm/dry Medical Decision Making Diagnostic Impression: Primary Impression: Anxiety and depression Last Vital Signs Date Time Temp Pulse Resp B/P (MAP) Pulse Ox O2 Delivery O2 Flow Rate FiO2 01/28/18 08:00 98.2 63 14 137/87 96 Room Air 98.2 Status: unchanged Disposition: AGAINST MEDICAL ADVICE Referrals: NON PHYSICIAN (PCP) Patient Instructions: Diphenhydramine disintegrating tablet (Insomnia), Insomnia Mg Mclean M.D. Jan 28, 2018 08:50
[2018-01-28] MEDS ORDERED: BENADRYL25 M3 PO (08:52)
[2018-01-28 09:11] LABS: APPEARANCE,URINE TURBID; BILIRUBIN, URINE NEGATIVE (NEGATIVE); GLUCOSE, URINE (UA) NEGATIVE (NEGATIVE); KETONES,URINE NEGATIVE (NEGATIVE); LEUKOCYTE ESTERASE ,URINE 1+ (NEGATIVE); NITRITE,URINE NEGATIVE (NEGATIVE); PH,URINE 6.5 (4.5-8.0); PROTEIN,URINE 1+ (NEGATIVE); UROBILINOGEN,URINE NORMAL MG/DL (0.0-1.0)
[2018-01-28 09:12] LABS: COLOR,URINE YELLOW
[2018-01-28 09:26] VITALS: BP 128/76
== END 2018-01-28 09:27 | disposition left against medical advice (07) ==
LOC: EMR 08:20
DX: F41.9 Anxiety disorder, unspecified (principal); F32.9 Major depressive disorder, single episode, unspecified; I25.2 Old myocardial infarction
CPT/HCPCS: 81001; 99283

== ENCOUNTER 2018-08-28 20:40 | Emergency (ER) | payer MEDICARE, OTHER ==
[~2018-08-28] VITALS: Ht 177.8 cm; Wt 108.9 kg
[~2018-08-28 20:40] MED LIST changes: +BENADRYL25 M3 PO
[2018-08-28] MEDS ORDERED: LIPITOR40 MG ORAL (20:52)
--- NOTE | 2018-08-28 21:07 | Emergency Room Report ---
History of Present Illness General Chief Complaint: Pain Source: Patient Present Illness HPI This is a 48-year-old female with history of anxiety. She presents with chief complaint of body pain and shoulder pain. She had a personal lines sales rep helping her with going to the gym. She was just doing weights. He was 2-1/2 pounds weights that she was lifting with her arms in a circular motion. She woke up today with diffuse shoulder pain and arm pain. No trauma. Pain is 10 out of 10. No relief with Soma. No relief with her Percocet. Denies any other complaint. No nausea no vomiting. No chest pain. Allergies: Coded Allergies: PENICILLINS (Verified Allergy, Severe, 08/21/13) vaginal yeast MORPHINE (Verified Adverse Reaction, Severe, 08/21/13) headache Patient History Past Medical History: see triage record, old chart reviewed Past Surgical History: other Pertinent Family History: none Social History: Denies: smoking Last Menstrual Period: last month Now: No Immunizations: other Reviewed Nursing Documentation: PMH: Agreed; PSxH: Agreed Nursing Documentation-PMH Hx Cardiac Problems: Yes - 2010 Hx Hypertension: No Hx Pacemaker: No Hx Asthma: No Hx COPD: No Hx Diabetes: No Hx Cancer: No Hx Gastrointestinal Problems: No Hx Dialysis: No Hx Neurological Problems: No Hx Cerebrovascular Accident: No Hx Seizures: No Review of Systems Eye: Denies: eye pain, blurred vision ENT: Denies: ear pain, nose congestion, throat swelling Respiratory: Denies: cough, shortness of breath Cardiovascular: Denies: chest pain, palpitations Gastrointestinal: Denies: abdominal pain, diarrhea, nausea, vomiting Musculoskeletal: Reports: muscle pain; Denies: back pain, joint pain Skin: Denies: rash Neurological: Denies: headache, numbness Endocrine: Denies: increased thirst, increased urine Hematologic/Lymphatic: Denies: easy bruising All Other Systems: negative except mentioned in HPI Physical Exam Vital Signs Date Time Temp Pulse Resp B/P (MAP) Pulse Ox O2 Delivery O2 Flow Rate FiO2 08/28/18 20:44 98.1 91 20 130/72 99 Room Air vitals normal Sp02 EP Interpretation: reviewed, normal General Appearance: well appearing, no apparent distress, alert Head: normocephalic, atraumatic Eyes: bilateral eye PERRL, bilateral eye EOMI ENT: hearing grossly normal, normal pharynx Neck: full range of motion, supple, no meningismus Respiratory: chest non-tender, lungs clear, normal breath sounds Cardiovascular #1: regular rate, rhythm, no murmur Gastrointestinal: normal bowel sounds, non tender, no mass, no organomegaly, no bruit, non-distended Musculoskeletal: back normal, gait/station normal, normal range of motion, other - Diffuse tenderness mostly left shoulder trapezius area. Neurologic: alert, oriented x3 Psychiatric: anxious Skin: warm/dry Medical Decision Making Diagnostic Impression: Primary Impression: Myalgia ER Course Patient with muscle pain from going to the gym. No evidence of any ACS, PE, dissection. Based on the weights that she use, unlikely to cause rhabdomyolysis. Discharge home. Last Vital Signs Date Time Temp Pulse Resp B/P (MAP) Pulse Ox O2 Delivery O2 Flow Rate FiO2 08/28/18 20:44 98.1 91 20 130/72 99 Room Air Status: improved Disposition: HOME, SELF-CARE Condition: Stable Scripts Ibuprofen* (MOTRIN*) 600 Mg Tablet 600 MG ORAL THREE TIMES A DAY, #30 TAB 0 Refills Prov: Abram Das MD 08/28/18 Additional Instructions: Follow-up with your doctor in 7 days. Return if symptom worsen. Abram Das MD Aug 28, 2018 21:06
[2018-08-28] MEDS ORDERED: IBUPROFEN600 MG ORAL (21:10)
[2018-08-28 21:15] VITALS: BP 130/72
[2018-08-28] MEDS ORDERED: Ketorolac 60mg Inj IM ONE (21:15)
--- NOTE | 2018-08-28 21:16 | NUR ---
ED Nurse Note: Patient walked in to ER c/o left shoulder pain after work out. Per patient she started to do heavy weights for upper body since yesterday, and she pulled her left shoulder so bad. AAO x4, VSDS at this time, skin is dry, intact.
[2018-08-28 21:21] VITALS: BP 130/72
--- NOTE | 2018-08-28 21:31 | NUR ---
ED Nurse Note: Pt cleared by health care Provider for discharge. DC instructions/prescription was given and explained to pt and verbalized understanding of teachings. All medical deviecs such as ID band removed. Pt is AAO x4, ambulatory and left with all personal belongings.
== END 2018-08-28 21:20 | disposition home or self-care (01) ==
LOC: EMR 21:09
DX: M79.10 Myalgia, unspecified site (principal); I25.2 Old myocardial infarction
CPT/HCPCS: 96372; 99283

== ENCOUNTER 2018-11-23 17:35 | Emergency (ER) | payer MEDICARE, OTHER ==
[~2018-11-23] VITALS: Ht 177.8 cm; Wt 108.0 kg
[~2018-11-23 17:35] MED LIST changes: +LIPITOR40 MG ORAL
[2018-11-23 18:16] VITALS: BP 121/88
--- NOTE | 2018-11-23 18:17 | NUR ---
ED Nurse Note: pt walked in to ER and stated "My PH balance is off." pt aao x4 and ambulatory. no acute distress noted. skin clean and intact. calm and cooperative. pt stated "I know because i smell differently."
[2018-11-23] MEDS ORDERED: METRONIDAZOLE500 MG ORAL (18:24)
[2018-11-23 18:27] VITALS: BP 121/88
--- NOTE | 2018-11-23 18:27 | NUR ---
ER DISCHARGE NOTE: Patient is cleared to be discharged per ERMD, pt is aox4, on room air, with stable vital signs. pt was given dc and prescription instructions, pt was able to verbalize understanding, pt id band removed without complications. pt is able to ambulate with steady gait. pt took all belongings.
--- NOTE | 2018-11-23 20:06 | Emergency Room Report ---
History of Present Illness General Chief Complaint: General Complaint Source: Patient Present Illness HPI 48-year-old female presents ED for evaluation. States that for the last few days she is been having odorous vaginal discharge. Denies any recent unprotected sex. States that she has had BV in the past and feels the same as this. Denies dysuria or hematuria. Denies flank pain. Denies fevers or chills. No other aggravating relieving factors. Denies any other associated symptoms Allergies: Coded Allergies: PENICILLINS (Verified Allergy, Severe, 08/21/13) vaginal yeast MORPHINE (Verified Adverse Reaction, Severe, 08/21/13) headache Patient History Past Medical History: HTN Past Surgical History: none Pertinent Family History: none Social History: Denies: smoking, alcohol use, drug use Last Menstrual Period: 11/19/18 Now: No : 4 Para: 4 Immunizations: UTD Reviewed Nursing Documentation: PMH: Agreed; PSxH: Agreed Nursing Documentation-PMH Past Medical History: No History, Except For Hx Cardiac Problems: No - h/o heart attack Hx Hypertension: Yes Hx Pacemaker: No Hx Asthma: No Hx COPD: No Hx Diabetes: No Hx Cancer: No Hx Gastrointestinal Problems: No Hx Dialysis: No Hx Neurological Problems: No Hx Cerebrovascular Accident: No Hx Seizures: No Review of Systems All Other Systems: negative except mentioned in HPI Physical Exam Vital Signs Date Time Temp Pulse Resp B/P (MAP) Pulse Ox O2 Delivery O2 Flow Rate FiO2 11/23/18 17:40 98.1 68 18 121/88 (99) 94 Room Air Sp02 EP Interpretation: reviewed, normal General Appearance: no apparent distress, alert, GCS 15, non-toxic Head: normocephalic, atraumatic Eyes: bilateral eye normal inspection, bilateral eye PERRL ENT: hearing grossly normal, normal pharynx, no angioedema, normal voice Neck: full range of motion, supple/symm/no masses Respiratory: chest non-tender, lungs clear, normal breath sounds, speaking full sentences Cardiovascular #1: regular rate, rhythm, no edema Cardiovascular #2: 2+ carotid (R), 2+ carotid (L), 2+ radial (R), 2+ radial (L) , 2+ dorsalis pedis (R), 2+ dorsalis pedis (L) Gastrointestinal: normal bowel sounds, non tender, soft, non-distended, no guarding, no rebound Rectal: deferred Genitourinary: normal inspection, no CVA tenderness Musculoskeletal: back normal, gait/station normal, normal range of motion, non- tender Neurologic: alert, oriented x3, responsive, motor strength/tone normal, sensory intact, speech normal Psychiatric: judgement/insight normal, memory normal, mood/affect normal, no suicidal/homicidal ideation Reflexes: 3+ bicep (R), 3+ bicep (L), 3+ tricep (R), 3+ tricep (L), 3+ knee (R) , 3+ knee (L) Lymphatic: no adenopathy Medical Decision Making Diagnostic Impression: Primary Impression: BV (bacterial vaginosis) ER Course Hospital Course 48-year-old female presents ED with discharge. no dysuria Differential diagnoses include: trichimonas, gonorrhea, chlamydia Clinical course Patient placed on stretcher. Initial history and physical reviewed EMR. Patient has been here previously before BV treated. Does not want to check UA. Has no dysuria. Has no concern for STD. Will discharge with Flagyl. Safe for discharge with close outpatient follow-up Diagnosis - Bacterial Vaginosis Stable and discharged home with prescriptions for Rx Flagyl. Instructed to followup with PMD. Return to ED if symptoms recur or worsen Last Vital Signs Date Time Temp Pulse Resp B/P (MAP) Pulse Ox O2 Delivery O2 Flow Rate FiO2 11/23/18 18:27 98.1 68 18 121/88 94 Room Air Status: improved Disposition: HOME, SELF-CARE Condition: Stable Scripts Metronidazole* (FLAGYL*) 500 Mg Tablet 500 MG ORAL BID, #14 TAB Prov: Dmitri Evans MD 11/23/18 Patient Instructions: Bacterial Vaginosis, [id number] Dmitri Evans MD Nov 23, 2018 20:06
== END 2018-11-23 18:27 | disposition home or self-care (01) ==
LOC: EMR 18:19
DX: N76.0 Acute vaginitis (principal); I10 Essential (primary) hypertension; I25.2 Old myocardial infarction; Z88.6 Allergy status to analgesic agent; Z88.0 Allergy status to penicillin
CPT/HCPCS: 99282

== ENCOUNTER 2019-03-30 15:16 | Emergency (ER) | payer MEDICARE, OTHER ==
[~2019-03-30] VITALS: Ht 177.8 cm; Wt 100.7 kg
--- NOTE | 2019-03-30 15:44 | NUR ---
ED Nurse Note: Pt walked into ED from home w/ c/o vaginal smell. Pt states she has no discharge, itching, swelling. No redness. Pt states she has no pain. No acute distress.
[2019-03-30 15:57] VITALS: BP 126/86
--- NOTE | 2019-03-30 15:58 | Emergency Room Report ---
History of Present Illness General Chief Complaint: Vaginal Source: Patient Present Illness HPI 49-year-old female with past medical history here complaining of foul odor coming from the vaginal area x2 days. Patient reports that she recently switched her soap and started feeling follow water. Denies vaginal discharge, urinary frequency, urgency. Reports that has not been sexually active for the past few months. Denies vaginal pruritus and ulceration. Denies fever and chills, abdominal pain, nausea vomiting. Has not taken medication for symptom relief. Last menstrual period was 3 weeks ago and regular. Allergies: Coded Allergies: PENICILLINS (Verified Allergy, Severe, 08/21/13) vaginal yeast MORPHINE (Verified Adverse Reaction, Severe, 08/21/13) headache Patient History Past Medical History: see triage record Past Surgical History: unable to obtain Pertinent Family History: none Last Menstrual Period: 03/09/19 Now: No Immunizations: UTD Reviewed Nursing Documentation: PMH: Agreed; PSxH: Agreed Nursing Documentation-PMH Past Medical History: No Stated History Hx Cardiac Problems: No - h/o heart attack Hx Hypertension: Yes Hx Pacemaker: No Hx Asthma: No Hx COPD: No Hx Diabetes: No Hx Cancer: No Hx Gastrointestinal Problems: No Hx Dialysis: No Hx Neurological Problems: No Hx Cerebrovascular Accident: No Hx Seizures: No Review of Systems All Other Systems: negative except mentioned in HPI Physical Exam Vital Signs Date Time Temp Pulse Resp B/P (MAP) Pulse Ox O2 Delivery O2 Flow Rate FiO2 03/30/19 15:20 98.1 66 18 131/86 (101) 100 Room Air Sp02 EP Interpretation: reviewed, normal General Appearance: no apparent distress, alert, GCS 15, non-toxic Head: normocephalic, atraumatic Eyes: bilateral eye normal inspection, bilateral eye PERRL ENT: hearing grossly normal, normal pharynx, no angioedema, normal voice Neck: full range of motion, supple, no carotid bruits, supple/symm/no masses Respiratory: chest non-tender, lungs clear, normal breath sounds, no rhonchi, no wheezing, speaking full sentences Cardiovascular #1: regular rate, rhythm, no edema, no murmur Gastrointestinal: normal bowel sounds, non tender, soft, non-distended, no guarding, no rebound Rectal: deferred Genitourinary: no CVA tenderness Musculoskeletal: back normal, normal range of motion, gait/station normal, non- tender Neurologic: alert, motor strength/tone normal, oriented x3, sensory intact, responsive, speech normal Psychiatric: judgement/insight normal, memory normal, mood/affect normal, no suicidal/homicidal ideation Skin: no rash Lymphatic: normal inspection, no adenopathy Medical Decision Making JOSE LUIS Attestation Diagnosis and treatment plans were reviewed and discussed with my supervising physician Dr. Dickson Diagnostic Impression: Primary Impression: Vaginitis ER Course 49-year-old female with past medical history here complaining of foul odor coming from the vaginal area x2 days. Patient reports that she recently switched her soap and started feeling follow water. Denies vaginal discharge, urinary frequency, urgency. Reports that has not been sexually active for the past few months. Denies vaginal pruritus and ulceration. Denies fever and chills, abdominal pain, nausea vomiting. Has not taken medication for symptom relief. Last menstrual period was 3 weeks ago and regular. Ddx considered but are not limited to: UTI, vaginitis, gonorrhea, chlamydia, Vital signs: are WNL, pt. is afebrile H&PE are most consistent with: Vaginitis most likely secondary to BV and yeast infection ORDERS: flagyl, diflucan ED INTERVENTIONS: None required at this time. DISCHARGE: At this time pt. is stable for d/c to home. Will provide printed patient care instructions, and any necessary prescriptions. Care plan and follow up instructions have been discussed with the patient prior to discharge. 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
[2019-03-30] MEDS ORDERED: FLUCONAZOLE100 MG ORAL (16:01)
[2019-03-30] MEDS ORDERED: METRONIDAZOLE500 MG ORAL (16:01)
[2019-03-30 16:13] VITALS: BP 123/76
--- NOTE | 2019-03-30 16:15 | NUR ---
ER DISCHARGE NOTE: Patient is cleared to be discharged per ERMD, pt is aox4, on room air, with stable vital signs. pt was given dc and prescription instructions, pt was able to verbalize understanding, pt id band removed. pt is able to ambulate with steady gait. pt took all belongings. 2 presc given.
== END 2019-03-30 16:15 | disposition home or self-care (01) ==
LOC: EMR 16:03
DX: N76.0 Acute vaginitis (principal); I10 Essential (primary) hypertension; Z88.0 Allergy status to penicillin; Z88.5 Allergy status to narcotic agent
CPT/HCPCS: 99282

== ENCOUNTER 2019-04-23 11:08 | Emergency (ER) | payer MEDICARE, OTHER ==
[~2019-04-23] VITALS: Ht 175.3 cm; Wt 104.8 kg
[~2019-04-23 11:08] MED LIST changes: +FLUCONAZOLE100 MG ORAL
[2019-04-23 11:19] VITALS: BP 124/88
--- NOTE | 2019-04-23 11:20 | NUR ---
ED Nurse Note: PT AMBULATED INTO ED FROM WORK. ERMD AT BEDSIDE. PT DENIES TROUBLE BREATHING AND PAIN. PT REPORTS HIGH AMOUNT OF ANXIETY PREVIOUSLY DIAGNOSED AND NEWLY RECURRING. PT REPORTS BEING AFRAID OF BEING ALONE.
--- NOTE | 2019-04-23 11:32 | Emergency Room Report ---
History of Present Illness General Chief Complaint: General Complaint Source: Patient Present Illness HPI Disclaimer: Please note that this report is being documented using [employer] technology. This can lead to erroneous entry secondary to incorrect interpretation by the dictating instrument. HPI: 49-year-old female with a history of CAD status post stenting, hypertension , hyperlipidemia, anxiety and depression presents for evaluation of palpitations and anxiety attack last night. The patient states over the past 2 weeks she has had increasing stress and depressive symptoms. She denies SI/HI however last night she had a rapid heart rate, palpitations, chest squeezing sensation, shortness of breath which she describes as a panic attack. She was formally treated with anxiety but no longer takes any medications. She follows weekly with a psychologist for her anxiety and depression. Currently denying any symptoms but is very emotional and scared that she may have another panic attack at any moment. She has been compliant with her medications. Denies smoking. Denies alcohol or drug use. Currently chest pain-free and arrives with stable vital signs though appears anxious and tearful PMH: CAD status post stenting, hypertension, hyperlipidemia, anxiety, depression PSH: Cardiac stent Allergies: Penicillin and morphine Social Hx: Non-smoker, denies alcohol or drug use Allergies: Coded Allergies: PENICILLINS (Verified Allergy, Severe, 04/23/19) vaginal yeast MORPHINE (Verified Adverse Reaction, Severe, 08/21/13) headache Patient History Last Menstrual Period: CURRENTLY Nursing Documentation-PMH Past Medical History: No History, Except For Hx Cardiac Problems: No - h/o heart attack Hx Hypertension: Yes Hx Pacemaker: No Hx Asthma: No Hx COPD: No Hx Diabetes: No Hx Cancer: No Hx Gastrointestinal Problems: No Hx Dialysis: No Hx Neurological Problems: No Hx Cerebrovascular Accident: No Hx Seizures: No Review of Systems All Other Systems: negative except mentioned in HPI Physical Exam Vital Signs Date Time Temp Pulse Resp B/P (MAP) Pulse Ox O2 Delivery O2 Flow Rate FiO2 04/23/19 11:12 98.1 65 18 124/88 (100) 95 Room Air General: Awake and alert, appears upset HEENT: NC/AT. EOMI. Neck: Supple, trachea midline Chest Wall: No tenderness, no deformity Cardiovascular: RRR. S1 and S2 normal. No murmur appreciated Resp: Normal work of breathing. No cough, wheezing or crackles appreciated Abdomen: Abdomen is soft, nondistended. Nontender Skin: Intact. No abrasions, laceration or rash over the exposed skin MSK: Normal tone and bulk. Moving all extremities. No obvious deformity. Neuro: Awake and alert. Mentating appropriately. Tearful and emotional. Denies SI/HI Medical Decision Making ER Course Is a 49-year-old female presenting for evaluation of a presumed panic attack last night. Patient has a significant cardiac history and will perform a EKG, chest x-ray and labs including troponin to rule out cardiac causes of her chest pain and palpitations last night. She is currently chest pain-free and arrives with stable vital signs. This may be anxiety though will rule out other metabolic and cardiac causes with ED work-up. EKG Diagnostic Results EKG Time: 11:52 Rate: normal Rhythm: NSR ST Segments: no acute changes Other Impression Sinus rhythm, normal axis, normal intervals, no ST segment changes. Inferior Q waves Rhythm Strip Diag. Results Rhythm Strip Time: 11:52 EP Interpretation: yes Rate: 60 Rhythm: NSR, no PVC's, no ectopy Chest X-Ray Diagnostic Results Chest X-Ray Diagnostic Results : Chest X-Ray Ordered: Yes # of Views/Limited/Complete: 1 View Indication: Chest Pain EP Interpretation: Yes Interpretation: no consolidation, no effusion, no pneumothorax, no acute cardiopulmonary disease Impression: No acute disease Electronically Signed by: Electronically signed by Dr. Alejo Pal Reevaluation Time: 13:10 Last Vital Signs Date Time Temp Pulse Resp B/P (MAP) Pulse Ox O2 Delivery O2 Flow Rate FiO2 04/23/19 11:12 98.1 65 18 124/88 (100) 95 Room Air Reevaluation Impression EKG, chest x-ray, blood work including cardiac enzymes are negative. Believe the patient's presentation is consistent with anxiety and acute panic attacks. Patient is already contacted her integration developer while waiting in the emergency department and will be followed up in 1 week at an outpatient visit. We will refill a short 5 dose course of Xanax to use as needed for breakthrough anxiety until she can see her psychologist and PMD. I explained to her that these anxiolytic medications medications have to be regulated and dosed by her primary doctor or by a psychologist as well she will need regular follow-up and possible different medication regimen. Patient is well-appearing with stable vital signs. No chest pain or anxiety reported at this time. She understands and agrees with this treatment plan will be discharged home. Disposition: HOME, SELF-CARE Condition: Stable Scripts Alprazolam* (XANAX*) 0.25 Mg Tablet 0.25 MG ORAL TID PRN for For Anxiety, #5 TAB Prov: Alejo Pal MD 04/23/19 Alejo Pal MD Apr 23, 2019 11:32
--- NOTE | 2019-04-23 12:19 | NUR ---
ER Nurse Note: All orders completed per ERMD orders and awaiting results. Pt a&ox4, VSS, RA, no signs of distress. Pt denies anxitey, shortness of breath, dizziness. All safety measures met; will continue to montior.
[2019-04-23 12:21] LABS: BASOPHILS % (AUTO) 0.9 % (0.0-2.0); EOSINOPHILS % (AUTO) 1.7 % (0.0-3.0); HEMATOCRIT 48.5 % (37.0-47.0); HEMOGLOBIN 16.4 G/DL (12.0-16.0); LYMPHOCYTES % (AUTO) 42.4 % (20.0-45.0); MEAN CORPUSCULAR VOLUME 87 FL (80-99); NEUTROPHILS % (AUTO) 47.9 % (45.0-75.0); PLATELET COUNT 288 K/UL (150-450); RED BLOOD COUNT 5.55 M/UL (4.20-5.40); WHITE BLOOD COUNT 3.9 K/UL (4.8-10.8)
[2019-04-23 12:29] VITALS: BP 122/88
[2019-04-23 12:34] LABS: ANION GAP 9 mmol/L (5-15); BLOOD UREA NITROGEN 11 mg/dL (7-18); CALCIUM 8.9 MG/DL (8.5-10.1); CARBON DIOXIDE 27 MMOL/L (21-32); CHLORIDE 104 MMOL/L (98-107); CREATININE 0.8 MG/DL (0.55-1.30); POTASSIUM 3.8 MMOL/L (3.5-5.1); SODIUM 140 MMOL/L (136-145)
[2019-04-23 12:38] LABS: ALANINE AMINOTRANSFERASE 36 U/L (12-78); ALBUMIN 3.6 G/DL (3.4-5.0); ALKALINE PHOSPHATASE 74 U/L (46-116); ASPARTATE AMINO TRANSFERASE 23 U/L (15-37); BILIRUBIN,TOTAL 0.6 MG/DL (0.2-1.0)
[2019-04-23] MEDS ORDERED: ALPRAZOLAM0.25 MG ORAL (13:09)
[2019-04-23 13:18] VITALS: BP 122/88
--- NOTE | 2019-04-23 13:18 | NUR ---
ER Nurse Note: Pt treated, seen, cleared for discharge by ERMD. Discharge instructions given within repeat verbalization by pt. Encouraged pt to follow up with primary care provider within one week. Pt VSS, no signs of distress, denies pain. SLIV removed, site clean and bandaged; ID band removed. Pt steady gait, left with all belongings.
--- NOTE | 2019-04-23 14:09 | Diagnostic Imaging Report ---
Indication: Chest pain Technique: One view of the chest Comparison: none Findings: Lungs and pleural spaces are clear. Heart size is normal. No significant interim change Impression: No acute process
== END 2019-04-23 13:18 | disposition home or self-care (01) ==
LOC: EMR 12:15
DX: R00.2 Palpitations (principal); F41.9 Anxiety disorder, unspecified; E78.5 Hyperlipidemia, unspecified; I11.9 Hypertensive heart disease without heart failure; I25.10 Atherosclerotic heart disease of native coronary artery without angina pectoris; Z95.5 Presence of coronary angioplasty implant and graft; Z88.0 Allergy status to penicillin; Z88.6 Allergy status to analgesic agent; F32.9 Major depressive disorder, single episode, unspecified; I25.2 Old myocardial infarction
CPT/HCPCS: 36415; 71045; 80053; 84484; 85025; 93005; 99284

== ENCOUNTER 2019-05-21 04:43 | Inpatient (IN) | payer MEDICARE, OTHER ==
[~2019-05-21] VITALS: Ht 177.8 cm; Wt 106.1 kg
[~2019-05-21 04:43] MED LIST changes: +ALPRAZOLAM0.25 MG ORAL
[2019-05-21] MEDS ORDERED: Albuterol/Ipratropium 3ml neb ONE (04:47)
--- NOTE | 2019-05-21 04:52 | Emergency Room Report ---
History of Present Illness General Chief Complaint: Shortness of breath Source: Patient Present Illness HPI 49-year-old female history of hypertension history of CAD history of HI, history of smoking in the past presents with cough, shortness of breath started 1 day ago, no aggravating leaving factors severity is moderate, constant no fevers no chills patient denies any chest pain but she feels very short of breath patient presents for evaluation Allergies: Coded Allergies: PENICILLINS (Verified Allergy, Severe, 04/23/19) vaginal yeast MORPHINE (Verified Adverse Reaction, Severe, 08/21/13) headache Patient History Past Medical History: see triage record Social History: Reports: smoking - No longer smoking but history of smoking Reviewed Nursing Documentation: PMH: Agreed; PSxH: Agreed Nursing Documentation-PMH Hx Cardiac Problems: No - h/o heart attack Hx Hypertension: Yes Hx Pacemaker: No Hx Asthma: No Hx COPD: No Hx Diabetes: No Hx Cancer: No Hx Gastrointestinal Problems: No Hx Dialysis: No Hx Neurological Problems: No Hx Cerebrovascular Accident: No Hx Seizures: No Review of Systems All Other Systems: negative except mentioned in HPI Physical Exam Vital Signs Date Time Temp Pulse Resp B/P (MAP) Pulse Ox O2 Delivery O2 Flow Rate FiO2 05/21/19 04:49 97.2 87 26 164/83 (110) 98 Room Air 05/21/19 04:51 21 Sp02 EP Interpretation: reviewed, normal General Appearance: alert, moderate distress Head: normocephalic, atraumatic Eyes: bilateral eye PERRL, bilateral eye EOMI ENT: uvula midline, moist mucus membranes Neck: supple, thyroid normal, supple/symm/no masses Respiratory: lungs clear, decreased breath sounds, accessory muscle use, speaking full sentences Cardiovascular #1: normal peripheral pulses, regular rate, rhythm, no edema, no gallop, no murmur Gastrointestinal: non tender, soft, no guarding, no rebound Musculoskeletal: normal inspection Neurologic: alert, oriented x3 Psychiatric: anxious Skin: no rash, warm/dry Procedures Critical Care Time Critical Care Time Given the critical condition in which the patient arrived, the patient was immediately assessed by myself and the nurse, and cardiac monitoring initiated due to the potential for rapid decompensation of the patient's clinical condition. During the course of the patient's stay, I spent a considerable amount of time at the bedside performing serial re-evaluations of the patient's hemodynamic and clinical status because of the recognized potential threat to life or limb in this condition. I then had a chance to review not only all of the available current laboratory and radiographic studies obtained today, but I also reviewed old records available to me at the time. Additionally, any ancillary information available including instrument and control service person records were reviewed. Sequential vital signs were obtained. Critical Care time of 31 minutes was performed exclusive of billable procedures. Medical Decision Making Diagnostic Impression: Primary Impression: Dyspnea Qualified Codes: R06.00 - Dyspnea, unspecified Additional Impressions: Pulmonary edema Qualified Codes: J81.0 - Acute pulmonary edema Hypoxia Respiratory distress ER Course 49-year-old female, presents with acute respiratory distress, differential diagnosis includes COPD exacerbation, ACS, panic attacks, CHF exacerbation Patient given duo nebs, labs drawn, ABG drawn ABG shows hypoxia, oxygen provided. We will continue to monitor patient and provide supportive care Reevaluation 5:15 AM patient significantly improved X-ray shows pulmonary edema Nitropaste Nasal Cannula 2L We will admit patient for CHF exacerbation, Lasix given Reeval 6:08am patient slowly improving Patient admitted to Dr. Calderon Laboratory Tests Test 05/21/19 04:55 05/21/19 05:10 White Blood Count 6.7 K/UL (4.8-10.8) Red Blood Count 5.08 M/UL (4.20-5.40) Hemoglobin 15.8 G/DL (12.0-16.0) Hematocrit 45.1 % (37.0-47.0) Mean Corpuscular Volume 89 FL (80-99) Mean Corpuscular Hemoglobin 31.1 PG (27.0-31.0) H Mean Corpuscular Hemoglobin Concent 35.0 G/DL (32.0-36.0) Red Cell Distribution Width 11.8 % (11.6-14.8) Platelet Count 300 K/UL (150-450) Mean Platelet Volume 7.6 FL (6.5-10.1) Neutrophils (%) (Auto) % (45.0-75.0) Lymphocytes (%) (Auto) % (20.0-45.0) Monocytes (%) (Auto) % (1.0-10.0) Eosinophils (%) (Auto) % (0.0-3.0) Basophils (%) (Auto) % (0.0-2.0) Prothrombin Time 9.7 SEC (9.30-11.50) Prothrombin Time INR 0.9 (0.9-1.1) Activated Partial Thromboplast Time 27 SEC (23-33) Sodium Level 140 MMOL/L (136-145) Potassium Level 4.0 MMOL/L (3.5-5.1) Chloride Level 105 MMOL/L (98-107) Carbon Dioxide Level 24 MMOL/L (21-32) Anion Gap 12 mmol/L (5-15) Blood Urea Nitrogen 8 mg/dL (7-18) Creatinine 0.8 MG/DL (0.55-1.30) Estimate Glomerular Filtration Rate > 60 mL/min (>60) Glucose Level 105 MG/DL (74-106) Lactic Acid Level 1.10 mmol/L (0.4-2.0) Calcium Level 8.4 MG/DL (8.5-10.1) L Total Bilirubin 0.6 MG/DL (0.2-1.0) Aspartate Amino Transferase (AST) 34 U/L (15-37) Alanine Aminotransferase (ALT) 57 U/L (12-78) Alkaline Phosphatase 73 U/L (46-116) Troponin I 0.001 ng/mL (0.000-0.056) Pro-B-Type Natriuretic Peptide 921 pg/mL (0-125) H Total Protein 7.1 G/DL (6.4-8.2) Albumin 3.5 G/DL (3.4-5.0) Globulin 3.6 g/dL Albumin/Globulin Ratio 1.0 (1.0-2.7) Lipase 149 U/L (73-393) Arterial Blood pH 7.386 (7.350-7.450) Arterial Blood Partial Pressure CO2 34.7 mmHg (35.0-45.0) L Arterial Blood Partial Pressure O2 71.4 mmHg (75.0-100.0) L Arterial Blood HCO3 20.3 mmol/L (22.0-26.0) L Arterial Blood Oxygen Saturation 93.0 % (95-100) L Arterial Blood Base Excess -3.9 (-2-2) L Yaniv Test Positive EKG Diagnostic Results EKG Time: 04:48 EP Interpretation: NSR, rate 81, QTc 453, no acute ST elevations, normal axis Rhythm Strip Diag. Results Rhythm Strip Time: 04:52 EP Interpretation: yes Rate: 74 Rhythm: NSR, no PVC's, no ectopy Chest X-Ray Diagnostic Results Chest X-Ray Diagnostic Results : Chest X-Ray Ordered: Yes # of Views/Limited/Complete: 1 View Indication: Shortness of Breath EP Interpretation: Yes Interpretation: other - Pulmonary edema Impression: Other - Pulmonary edema acute CHF exacerbation Electronically Signed by: Keven Dickson MD Disposition: ADMITTED INPATIENT Condition: Serious Keven Dickson MD May 21, 2019 04:52
[2019-05-21] MEDS: Ipratropium 0.02% Inh Soln 2.5ml UD HHN SCH ×3 (04:58→05:24)
[2019-05-21] MEDS: Albuterol ud Inhalation HHN SCH ×3 (04:58→05:24)
[2019-05-21] MEDS ORDERED: LORazepam Inj 2mg/ml 1ml IV ONE (05:00)
[2019-05-21] MEDS ORDERED: Solu-MEDROL 125mg Inj IVP ONE (05:00)
--- NOTE | 2019-05-21 05:05 | NUR ---
ED Nurse Note: pt presents to ED c/o dypnea and SOB since last night. pt reports she first thought it was anxiety but it has not improved. pt states that she feels weak and has ahd a cough for a few days. pt is tearful and gasping for air, O2 sat is 99%. pt states she feels px when she coughs
[2019-05-21 05:11] VITALS: BP 164/83
[2019-05-21 05:30] LABS: ANION GAP 12 mmol/L (5-15); BLOOD UREA NITROGEN 8 mg/dL (7-18); CALCIUM 8.4 MG/DL (8.5-10.1); CARBON DIOXIDE 24 MMOL/L (21-32); CHLORIDE 105 MMOL/L (98-107); CREATININE 0.8 MG/DL (0.55-1.30); SODIUM 140 MMOL/L (136-145)
[2019-05-21 05:40] LABS: ALANINE AMINOTRANSFERASE 57 U/L (12-78); ALBUMIN 3.5 G/DL (3.4-5.0); ALKALINE PHOSPHATASE 73 U/L (46-116); ASPARTATE AMINO TRANSFERASE 34 U/L (15-37); BILIRUBIN,TOTAL 0.6 MG/DL (0.2-1.0); INR 0.9 (0.9-1.1)
[2019-05-21 05:45] LABS: HEMATOCRIT 45.1 % (37.0-47.0); HEMOGLOBIN 15.8 G/DL (12.0-16.0); RED BLOOD COUNT 5.08 M/UL (4.20-5.40); WHITE BLOOD COUNT 6.7 K/UL (4.8-10.8)
[2019-05-21 05:46] LABS: MEAN CORPUSCULAR VOLUME 89 FL (80-99); PLATELET COUNT 300 K/UL (150-450); RED CELL DISTRIBUTION WIDTH 11.8 % (11.6-14.8)
[2019-05-21] MEDS ORDERED: Nitroglycerin 2% oint pkt TOPIC ONE (06:15)
--- NOTE | 2019-05-21 06:21 | NUR ---
ED Nurse Note: per ERMD orders, pt put on 4L nasal cannula, SpO2: 99%
[2019-05-21 06:40] VITALS: BP 145/85
--- NOTE | 2019-05-21 06:40 | NUR ---
ED Nurse Note: pt in no acute distress, SpO2 at 89% on 2L nasal cannula, ERMD notified and changed order to simple mask. pt put on simple mask at 8L, pt SpO2 is 95% tolerating well. will continue to monitor
--- NOTE | 2019-05-21 07:05 | NUR ---
HAND-OFF: Report given to NALLELY Dhaliwal
[2019-05-21 07:20] VITALS: BP 124/79
--- NOTE | 2019-05-21 07:22 | NUR ---
ED Nurse Note: Patient sleeping in bed on left lateral position with pulse oximetry reading 95% with N/C 4L. Regular, unlabored breathing noted. No facial grimacing or guarding noted. Patient has continuous cardiac monitoring on. Bed in lowest position.
[2019-05-21] MEDS ORDERED: METOPROLOL SUCC25 MG ORAL (07:47)
[2019-05-21] MEDS ORDERED: ASPIRIN81 MG ORAL (07:47)
--- NOTE | 2019-05-21 08:38 | Diagnostic Imaging Report ---
Indication: Cough Technique: One view of the chest Comparison: 04/23/2019 Findings: Interim development of bilateral interstitial and airspace infiltrates versus edema. The heart is upper limits normal in size. The pleural spaces are grossly clear. Impression: Bilateral diffuse interstitial and airspace infiltrates versus edema
--- NOTE | 2019-05-21 09:00 | NUR ---
ED Nurse Note: Patient resting in bed with eyes closed. Patient reports decreased SOB and no chest pain at this time. Bed in lowest position.
--- NOTE | 2019-05-21 10:21 | NUR ---
TRANSFER TO FLOOR: Patient transferred to as ordered. Report given to NALLELY Garcia. Belongings and medications taken to telemetry unit.
--- NOTE | 2019-05-21 10:30 | NUR ---
NURSE NOTES: Patient's transferred from ER by darlene with assistance of NALLELY Grissom and hvac controls technician. Patient's in stable condition, no s/s of distress or SOB, denies pain, AAO x 4, ambulates steady. Patient's on 2L NC. IV is saline locked, patent and asymptomatic. Bed low and locked, call light within reach, side rails x 2, bed alarm is armed, branch banker is applied. Patient's belonging list went over with both nurses and patient at bedside. Patient would like to keep her money in the safe. Told patient that home housekeeper and security will come and count the money with her and keep the money in the safe with the receipt will be given to her for proof. Vital signs are stable: BP 123/77, MA 95, RR 21, O2 92%, Temp 98.2. Contacted Dr. Calderon and Dr. Napier's for admission orders. Awaiting for response.
[2019-05-21] MEDS ORDERED: LORazepam Inj 2mg/ml 1ml IV PRN (11:15)
[2019-05-21] MEDS ORDERED: Promethazine/Codeine 5ml UD ORAL PRN (11:15)
[2019-05-21] MEDS ORDERED: Lidocaine 1% MPF 10mg/ml 5ml HHN PRN (11:15)
[2019-05-21] MEDS ORDERED: Nitroglycerin Subl 0.4mg tab SL PRN (11:15)
--- NOTE | 2019-05-21 11:24 | Consultation ---
History of Present Illness General Date patient seen: May 21, 2019 Chief Complaint: Upper Respiratory Illness Present Illness HPI 49 year old female with hx of CAD, stent X2 in 2008, ex drug abuser, presented to Er with CC of refractory cough with some blood tinged phlegm. She has some sick contact with people who had flu. Allergies: Coded Allergies: PENICILLINS (Verified Allergy, Severe, 04/23/19) vaginal yeast MORPHINE (Verified Adverse Reaction, Severe, 08/21/13) headache Medication History Scheduled Aspirin* (Aspirin*), 81 MG ORAL DAILY, (Reported) Metoprolol Succinate* (Metoprolol Succinate*), 25 MG ORAL DAILY, (Reported) Scheduled PRN Alprazolam* (Xanax*), 0.25 MG ORAL TID PRN for For Anxiety Patient History Healthcare decision maker Resuscitation status Advanced Directive on File Past Medical/Surgical History Past Medical/Surgical History: (1) Stented coronary artery (2) CAD (coronary artery disease) (3) Anxiety and depression Review of Systems All Other Systems: negative except mentioned in HPI Physical Exam General Appearance: WD/WN, no apparent distress Lines, tubes and drains: peripheral HEENT: normocephalic, anicteric Neck: non-tender, normal alignment Respiratory/Chest: chest wall non-tender, lungs clear Cardiovascular/Chest: normal peripheral pulses, normal rate Abdomen: normal bowel sounds, non tender Genitourinary/Rectal: normal genital exam Extremities: normal range of motion Neurologic: document controller II-XII grossly normal Last 24 Hour Vital Signs Date Time Temp Pulse Resp B/P (MAP) Pulse Ox O2 Delivery O2 Flow Rate FiO2 05/21/19 10:20 77 18 122/72 95 Nasal Cannula 2.0 05/21/19 07:20 85 16 124/79 95 Nasal Cannula 4.0 05/21/19 06:40 86 25 145/85 96 Simple Mask 8.0 05/21/19 06:23 95 Simple Mask 8.0 05/21/19 06:21 89 Nasal Cannula 4.0 05/21/19 06:06 164/83 05/21/19 05:24 87 17 98 Room Air 21 90 6 98 05/21/19 05:11 90 26 Room Air 21 05/21/19 05:11 97.2 90 26 164/83 98 Room Air 21 05/21/19 04:58 90 26 98 Room Air 21 93 27 98 05/21/19 04:51 91 27 99 Room Air 21 82 28 98 05/21/19 04:49 97.2 87 26 164/83 (110) 98 Room Air Laboratory Tests Test 05/21/19 04:55 05/21/19 05:10 White Blood Count 6.7 K/UL (4.8-10.8) Red Blood Count 5.08 M/UL (4.20-5.40) Hemoglobin 15.8 G/DL (12.0-16.0) Hematocrit 45.1 % (37.0-47.0) Mean Corpuscular Volume 89 FL (80-99) Mean Corpuscular Hemoglobin 31.1 PG (27.0-31.0) H Mean Corpuscular Hemoglobin Concent 35.0 G/DL (32.0-36.0) Red Cell Distribution Width 11.8 % (11.6-14.8) Platelet Count 300 K/UL (150-450) Mean Platelet Volume 7.6 FL (6.5-10.1) Neutrophils (%) (Auto) % (45.0-75.0) Lymphocytes (%) (Auto) % (20.0-45.0) Monocytes (%) (Auto) % (1.0-10.0) Eosinophils (%) (Auto) % (0.0-3.0) Basophils (%) (Auto) % (0.0-2.0) Prothrombin Time 9.7 SEC (9.30-11.50) Prothromb Time International Ratio 0.9 (0.9-1.1) Activated Partial Thromboplast Time 27 SEC (23-33) Sodium Level 140 MMOL/L (136-145) Potassium Level 4.0 MMOL/L (3.5-5.1) Chloride Level 105 MMOL/L (98-107) Carbon Dioxide Level 24 MMOL/L (21-32) Anion Gap 12 mmol/L (5-15) Blood Urea Nitrogen 8 mg/dL (7-18) Creatinine 0.8 MG/DL (0.55-1.30) Estimat Glomerular Filtration Rate > 60 mL/min (>60) Glucose Level 105 MG/DL (74-106) Lactic Acid Level 1.10 mmol/L (0.4-2.0) Calcium Level 8.4 MG/DL (8.5-10.1) L Total Bilirubin 0.6 MG/DL (0.2-1.0) Aspartate Amino Transf (AST/SGOT) 34 U/L (15-37) Alanine Aminotransferase (ALT/SGPT) 57 U/L (12-78) Alkaline Phosphatase 73 U/L (46-116) Troponin I 0.001 ng/mL (0.000-0.056) Pro-B-Type Natriuretic Peptide 921 pg/mL (0-125) H Total Protein 7.1 G/DL (6.4-8.2) Albumin 3.5 G/DL (3.4-5.0) Globulin 3.6 g/dL Albumin/Globulin Ratio 1.0 (1.0-2.7) Lipase 149 U/L (73-393) Arterial Blood pH 7.386 (7.350-7.450) Arterial Blood Partial Pressure CO2 34.7 mmHg (35.0-45.0) L Arterial Blood Partial Pressure O2 71.4 mmHg (75.0-100.0) L Arterial Blood HCO3 20.3 mmol/L (22.0-26.0) L Arterial Blood Oxygen Saturation 93.0 % (95-100) L Arterial Blood Base Excess -3.9 (-2-2) L Yaniv Test Positive Height (Feet): 5 Height (Inches): 10.00 Weight (Pounds): 234 Medications Current Medications Medications (Trade) Dose Ordered Sig/Xena Route PRN Reason Start Time Stop Time Status Last Admin Dose Admin Albuterol/ Ipratropium (Albuterol/ Ipratropium) 3 ml EVERY 4 HOURS PRN HHN dyspnea 05/21/19 11:15 05/26/19 11:14 UNV Alprazolam (Xanax) 0.25 mg TID PRN ORAL For Anxiety 05/21/19 11:15 05/28/19 11:14 UNV Dextrose (Dextrose 50%) 25 ml Q30M PRN IV Hypoglycemia 05/21/19 11:15 06/20/19 11:14 UNV Dextrose (Dextrose 50%) 50 ml Q30M PRN IV Hypoglycemia 05/21/19 11:15 06/20/19 11:14 UNV Heparin Sodium (Porcine) (Heparin 5000 units/ml) 5,000 units EVERY 12 HOURS SUBQ 05/21/19 21:00 06/20/19 20:59 UNV Lidocaine (Xylocaine 1% MPF 5ml) 10 ml EVERY 4 HOURS PRN HHN cough 05/21/19 11:15 06/20/19 11:14 UNV Lorazepam (Ativan 2mg/ml 1ml) 0.5 mg Q4H PRN IV For Anxiety 05/21/19 11:15 05/28/19 11:14 UNV Methylprednisolone Sodium Succinate (Solu-MEDROL) 60 mg EVERY 6 HOURS IV 05/21/19 12:00 06/20/19 11:59 UNV Nitroglycerin (Ntg) 0.4 mg Q5M X 3 DOSES PRN SL Prn Chest Pain 05/21/19 11:15 06/20/19 11:14 UNV Ondansetron HCl (Zofran) 4 mg Q6H PRN IVP Nausea & Vomiting 05/21/19 11:15 06/20/19 11:14 UNV Promethazine HCl/ Codeine (Phenergan with Codeine) 5 ml EVERY 6 HOURS PRN ORAL cough 05/21/19 11:15 06/20/19 11:14 UNV Temazepam (Restoril) 15 mg HSPRN PRN ORAL Insomnia 05/21/19 11:15 05/28/19 11:14 UNV Theophylline (Edson-Dur) 100 mg EVERY 12 HOURS ORAL 05/21/19 21:00 06/20/19 20:59 UNV Assessment/Plan Problem List: (1) Atypical pneumonia ICD Codes: J18.9 - Pneumonia, unspecified organism SNOMED: 908234962 (2) Hemoptysis ICD Codes: R04.2 - Hemoptysis SNOMED: 77664104 (3) Anxiety and depression ICD Codes: F41.9 - Anxiety disorder, unspecified; F32.9 - Major depressive disorder, single episode, unspecified SNOMED: 616017780 (4) CAD (coronary artery disease) ICD Codes: I25.10 - Atherosclerotic heart disease of [place] coronary artery without angina pectoris SNOMED: 84951198 (5) Stented coronary artery ICD Codes: Z95.5 - Presence of coronary angioplasty implant and graft SNOMED: 92479107, 278863819 Assessment/Plan: check sputum IV abx iv steroids ppd sputum for afb echocardiogram, doubt CHF Lidocain inhalation for persistent cough dvt prophylaxis Ragini Napier MD May 21, 2019 11:24
[2019-05-21 12:00] VITALS: BP 128/76
[2019-05-21] MEDS: Solu-MEDROL 125mg Inj IV SCH ×2 (12:00→17:29)
--- NOTE | 2019-05-21 12:23 | NUR ---
CASE MANAGEMENT:REVIEW 49 YR OLD FEMALE WALKED IN TO OUR ER CC: SOB SI: RESPIRATORY DISTRESS. PULMONARY EDEMA 97.2 87 26 164/83 89% ON 2L/NC BNP+921 PCO2-34.7 PO2-71.4 HC03-20.3 IS: PLACED ON MASK @ 8L ASA PO IV ZOFRAN DUONEB HHN Q15 500CC NS BOLUS IV SOLUMEDROL IV MAG SULFATE IV ATIVAN IV LASIX : TELEMETRY STATUS
--- NOTE | 2019-05-21 13:14 | Consultation ---
History of Present Illness General Date patient seen: May 21, 2019 Chief Complaint: Upper Respiratory Illness Present Illness HPI 49 y/o F with hx of CAD/MD s/p stents x2 2009, HTN, former drug abuser, former smoker presented to ED on 05/21 with 1 day of cough with some blood tinged phlegm, SOB. +sick contacts with people who had flu. Denied f/c, chest pain Allergies: Coded Allergies: MORPHINE (Verified Adverse Reaction, Severe, 08/21/13) headache PENICILLINS (Verified Adverse Reaction, Severe, 05/21/19) vaginal yeast Medication History Scheduled Aspirin* (Aspirin*), 81 MG ORAL DAILY, (Reported) Metoprolol Succinate* (Metoprolol Succinate*), 25 MG ORAL DAILY, (Reported) Scheduled PRN Alprazolam* (Xanax*), 0.25 MG ORAL TID PRN for For Anxiety Patient History Healthcare decision maker Davis Flores Resuscitation status Full Code Advanced Directive on File Patient History Narrative Pmhx: as above Shx: reviewed Fhx: non contributory Review of Systems All Other Systems: negative except mentioned in HPI Physical Exam Physical Exam Narrative General Appearance: WD/WN, no apparent distress Lines, tubes and drains: peripheral HEENT: normocephalic, anicteric Neck: non-tender, normal alignment Respiratory/Chest: chest wall non-tender, lungs clear Cardiovascular/Chest: normal peripheral pulses, normal rate Abdomen: normal bowel sounds, non tender Extremities: normal range of motion Neurologic: director of finance II-XII grossly normal Last 24 Hour Vital Signs Date Time Temp Pulse Resp B/P (MAP) Pulse Ox O2 Delivery O2 Flow Rate FiO2 05/21/19 11:01 Nasal Cannula 2.0 05/21/19 10:20 77 18 122/72 95 Nasal Cannula 2.0 05/21/19 07:20 85 16 124/79 95 Nasal Cannula 4.0 05/21/19 06:40 86 25 145/85 96 Simple Mask 8.0 05/21/19 06:23 95 Simple Mask 8.0 05/21/19 06:21 89 Nasal Cannula 4.0 05/21/19 06:06 164/83 05/21/19 05:24 87 17 98 Room Air 21 90 6 98 05/21/19 05:11 90 26 Room Air 21 05/21/19 05:11 97.2 90 26 164/83 98 Room Air 21 05/21/19 04:58 90 26 98 Room Air 21 93 27 98 05/21/19 04:51 91 27 99 Room Air 21 82 28 98 05/21/19 04:49 97.2 87 26 164/83 (110) 98 Room Air Laboratory Tests Test 05/21/19 04:55 05/21/19 05:10 White Blood Count 6.7 K/UL (4.8-10.8) Red Blood Count 5.08 M/UL (4.20-5.40) Hemoglobin 15.8 G/DL (12.0-16.0) Hematocrit 45.1 % (37.0-47.0) Mean Corpuscular Volume 89 FL (80-99) Mean Corpuscular Hemoglobin 31.1 PG (27.0-31.0) H Mean Corpuscular Hemoglobin Concent 35.0 G/DL (32.0-36.0) Red Cell Distribution Width 11.8 % (11.6-14.8) Platelet Count 300 K/UL (150-450) Mean Platelet Volume 7.6 FL (6.5-10.1) Neutrophils (%) (Auto) % (45.0-75.0) Lymphocytes (%) (Auto) % (20.0-45.0) Monocytes (%) (Auto) % (1.0-10.0) Eosinophils (%) (Auto) % (0.0-3.0) Basophils (%) (Auto) % (0.0-2.0) Prothrombin Time 9.7 SEC (9.30-11.50) Prothromb Time International Ratio 0.9 (0.9-1.1) Activated Partial Thromboplast Time 27 SEC (23-33) Sodium Level 140 MMOL/L (136-145) Potassium Level 4.0 MMOL/L (3.5-5.1) Chloride Level 105 MMOL/L (98-107) Carbon Dioxide Level 24 MMOL/L (21-32) Anion Gap 12 mmol/L (5-15) Blood Urea Nitrogen 8 mg/dL (7-18) Creatinine 0.8 MG/DL (0.55-1.30) Estimat Glomerular Filtration Rate > 60 mL/min (>60) Glucose Level 105 MG/DL (74-106) Lactic Acid Level 1.10 mmol/L (0.4-2.0) Calcium Level 8.4 MG/DL (8.5-10.1) L Total Bilirubin 0.6 MG/DL (0.2-1.0) Aspartate Amino Transf (AST/SGOT) 34 U/L (15-37) Alanine Aminotransferase (ALT/SGPT) 57 U/L (12-78) Alkaline Phosphatase 73 U/L (46-116) Lactate Dehydrogenase Pending Troponin I 0.001 ng/mL (0.000-0.056) Pro-B-Type Natriuretic Peptide 921 pg/mL (0-125) H Total Protein 7.1 G/DL (6.4-8.2) Albumin 3.5 G/DL (3.4-5.0) Globulin 3.6 g/dL Albumin/Globulin Ratio 1.0 (1.0-2.7) Lipase 149 U/L (73-393) HIV (1&2) Antibody Rapid Negative (NEGATIVE) Arterial Blood pH 7.386 (7.350-7.450) Arterial Blood Partial Pressure CO2 34.7 mmHg (35.0-45.0) L Arterial Blood Partial Pressure O2 71.4 mmHg (75.0-100.0) L Arterial Blood HCO3 20.3 mmol/L (22.0-26.0) L Arterial Blood Oxygen Saturation 93.0 % (95-100) L Arterial Blood Base Excess -3.9 (-2-2) L Yaniv Test Positive Height (Feet): 5 Height (Inches): 10.00 Weight (Pounds): 234 Medications Current Medications Medications (Trade) Dose Ordered Sig/Xena Route PRN Reason Start Time Stop Time Status Last Admin Dose Admin Albuterol/ Ipratropium (Albuterol/ Ipratropium) 3 ml EVERY 4 HOURS PRN HHN dyspnea 05/21/19 11:15 05/26/19 11:14 Alprazolam (Xanax) 0.25 mg TID PRN ORAL For Anxiety 05/21/19 11:15 05/28/19 11:14 Dextrose (Dextrose 50%) 25 ml Q30M PRN IV Hypoglycemia 05/21/19 11:15 06/20/19 11:14 Dextrose (Dextrose 50%) 50 ml Q30M PRN IV Hypoglycemia 05/21/19 11:15 06/20/19 11:14 Heparin Sodium (Porcine) (Heparin 5000 units/ml) 5,000 units EVERY 12 HOURS SUBQ 05/21/19 21:00 06/20/19 20:59 Lidocaine (Xylocaine 1% MPF 5ml) 10 ml EVERY 4 HOURS PRN HHN cough 05/21/19 11:15 06/20/19 11:14 UNV Methylprednisolone Sodium Succinate (Solu-MEDROL) 60 mg EVERY 6 HOURS IV 05/21/19 12:00 06/20/19 11:59 Nitroglycerin (Ntg) 0.4 mg Q5M X 3 DOSES PRN SL Prn Chest Pain 05/21/19 11:15 06/20/19 11:14 Ondansetron HCl (Zofran) 4 mg Q6H PRN IVP Nausea & Vomiting 05/21/19 11:15 06/20/19 11:14 Promethazine HCl/ Codeine (Phenergan with Codeine) 5 ml Q6H PRN ORAL cough 05/21/19 11:15 06/20/19 11:14 Temazepam (Restoril) 15 mg HSPRN PRN ORAL Insomnia 05/21/19 11:15 05/28/19 11:14 Theophylline (Edson-Dur) 100 mg EVERY 12 HOURS ORAL 05/21/19 21:00 06/20/19 20:59 Tuberculin PPD (Tubersol (PPD)) 0.1 ml ONCE ONCE IDERMAL 05/21/19 11:30 05/21/19 11:31 UNV Assessment/Plan Assessment/Plan: Abx: None Assessment: Pneumonia- r/o Influenza- blood tinge sputum- doubt TB due to acuity of symptoms (1 day), absence of risk factors. Reviewed CT chest- no cavitary or nodular lesions -CT chest p -CXR: Bilateral diffuse interstitial and airspace infiltrates versus edema Afebrile No Leukocytosis CAD/MD s/p stents x2 2009 HTN former drug abuser former smoker Plan: -Start empiric Ceftriaxone, Tamiflu -f/u cx -Monitor CBC/CMP, temperatures -sp cx, influenza sc -aspiration precautions -D/c airborne precautions and AFB sp cx Thank you for this consultation. Will continue to follow along with you. Discussed with Elinor Oliveira M.D. May 21, 2019 13:14
[2019-05-21] MEDS: ALPRAZolam 0.25mg tab ORAL PRN (13:40)
[2019-05-21] MEDS: Oseltamivir 75mg cap ORAL SCH ×2 (13:40→17:27)
[2019-05-21] MEDS: Albuterol/Ipratropium 3ml neb HHN PRN ×2 (14:23→20:30)
[2019-05-21] MEDS: cefTRIAXone 1 GM in D5W 55 ML IVPB SCH (14:41)
--- NOTE | 2019-05-21 15:50 | Diagnostic Imaging Report ---
Clinical Indication: Upper respiratory illness, cough, hemoptysis Technique: IV administration nonionic contrast. Spiral acquisition obtained through the chest. Multiplanar reconstructions generated. Total dose length product 1862 mGycm. CTDIvol(s) 41, 79, 36 mGy. Dose reduction achieved using automated exposure control Comparison: CTA chest dated 10/16/2016 Findings: There is some image degradation due to motion artifact. Fairly diffuse areas of groundglass opacity are noted No acute pulmonary process otherwise. This may have some artifactual component however, Due to motion, image noise, and beam hardening. No focal dense consolidation, masses, nodules or effusions. The heart is upper limits normal in size. No pericardial effusion. No mediastinal or hilar mass or adenopathy. Unremarkable esophagus. Unremarkable thyroid. No axillary or chest wall mass or adenopathy. The bones are unremarkable. The included upper abdominal anatomy is unremarkable. Compared to the prior study, previously demonstrated pleural effusions are no longer evident Impression: Limited exam, as described Bilateral diffuse groundglass opacities. May in part be artifactual, but could indicate diffuse pulmonary edema, particularly given findings on prior study. No focal dense consolidation. No evidence of pulmonary mass The CT scanner at [facility] is accredited by the [employer] and the scans are performed using protocols designed to limit radiation exposure to as low as reasonably achievable to attain images of sufficient resolution adequate for diagnostic evaluation.
[2019-05-21 16:00] VITALS: BP 123/71
[2019-05-21] MEDS ORDERED: PPD Tuberculin Skin Test 5TU IDERMAL ONE (17:00)
--- NOTE | 2019-05-21 18:27 | Cardiology Progress Note ---
Assessment/Plan Assessment/Plan doubt infiltrative process due to chf will check echo has hs of cad adn stent at [facility] repeatt trop and ekg will follow [id number] Objective Last 24 Hour Vital Signs Date Time Temp Pulse Resp B/P (MAP) Pulse Ox O2 Delivery O2 Flow Rate FiO2 05/21/19 16:00 81 05/21/19 16:00 96.8 80 20 123/71 (88) 94 05/21/19 16:00 2.0 05/21/19 14:26 81 18 95 Nasal Cannula 3.0 32 74 18 93 05/21/19 14:25 74 18 93 Nasal Cannula 3.0 32 05/21/19 14:25 93 Nasal Cannula 2.0 28 05/21/19 12:00 74 05/21/19 12:00 97.7 74 21 128/76 (93) 91 05/21/19 12:00 2.0 05/21/19 11:01 Nasal Cannula 2.0 05/21/19 10:59 74 05/21/19 10:20 77 18 122/72 95 Nasal Cannula 2.0 05/21/19 07:20 85 16 124/79 95 Nasal Cannula 4.0 05/21/19 06:40 86 25 145/85 96 Simple Mask 8.0 05/21/19 06:23 95 Simple Mask 8.0 05/21/19 06:21 89 Nasal Cannula 4.0 05/21/19 06:06 164/83 05/21/19 05:24 87 17 98 Room Air 21 90 6 98 05/21/19 05:11 90 26 Room Air 21 05/21/19 05:11 97.2 90 26 164/83 98 Room Air 21 05/21/19 04:58 90 26 98 Room Air 21 93 27 98 05/21/19 04:51 91 27 99 Room Air 21 82 28 98 05/21/19 04:49 97.2 87 26 164/83 (110) 98 Room Air Laboratory Tests Test 05/21/19 04:55 05/21/19 05:10 White Blood Count 6.7 K/UL (4.8-10.8) Red Blood Count 5.08 M/UL (4.20-5.40) Hemoglobin 15.8 G/DL (12.0-16.0) Hematocrit 45.1 % (37.0-47.0) Mean Corpuscular Volume 89 FL (80-99) Mean Corpuscular Hemoglobin 31.1 PG (27.0-31.0) H Mean Corpuscular Hemoglobin Concent 35.0 G/DL (32.0-36.0) Red Cell Distribution Width 11.8 % (11.6-14.8) Platelet Count 300 K/UL (150-450) Mean Platelet Volume 7.6 FL (6.5-10.1) Neutrophils (%) (Auto) % (45.0-75.0) Lymphocytes (%) (Auto) % (20.0-45.0) Monocytes (%) (Auto) % (1.0-10.0) Eosinophils (%) (Auto) % (0.0-3.0) Basophils (%) (Auto) % (0.0-2.0) Prothrombin Time 9.7 SEC (9.30-11.50) Prothromb Time International Ratio 0.9 (0.9-1.1) Activated Partial Thromboplast Time 27 SEC (23-33) Sodium Level 140 MMOL/L (136-145) Potassium Level 4.0 MMOL/L (3.5-5.1) Chloride Level 105 MMOL/L (98-107) Carbon Dioxide Level 24 MMOL/L (21-32) Anion Gap 12 mmol/L (5-15) Blood Urea Nitrogen 8 mg/dL (7-18) Creatinine 0.8 MG/DL (0.55-1.30) Estimat Glomerular Filtration Rate > 60 mL/min (>60) Glucose Level 105 MG/DL (74-106) Lactic Acid Level 1.10 mmol/L (0.4-2.0) Calcium Level 8.4 MG/DL (8.5-10.1) L Total Bilirubin 0.6 MG/DL (0.2-1.0) Aspartate Amino Transf (AST/SGOT) 34 U/L (15-37) Alanine Aminotransferase (ALT/SGPT) 57 U/L (12-78) Alkaline Phosphatase 73 U/L (46-116) Lactate Dehydrogenase 355 U/L (81-234) H Troponin I 0.001 ng/mL (0.000-0.056) Pro-B-Type Natriuretic Peptide 921 pg/mL (0-125) H Total Protein 7.1 G/DL (6.4-8.2) Albumin 3.5 G/DL (3.4-5.0) Globulin 3.6 g/dL Albumin/Globulin Ratio 1.0 (1.0-2.7) Lipase 149 U/L (73-393) HIV (1&2) Antibody Rapid Negative (NEGATIVE) Arterial Blood pH 7.386 (7.350-7.450) Arterial Blood Partial Pressure CO2 34.7 mmHg (35.0-45.0) L Arterial Blood Partial Pressure O2 71.4 mmHg (75.0-100.0) L Arterial Blood HCO3 20.3 mmol/L (22.0-26.0) L Arterial Blood Oxygen Saturation 93.0 % (95-100) L Arterial Blood Base Excess -3.9 (-2-2) L Yaniv Test Positive Rene Arriaga MD May 21, 2019 18:27
--- NOTE | 2019-05-21 19:18 | NUR ---
HAND-OFF: Report given to NALLELY Saleh. Patient's stable, plan of care endorsed.
[2019-05-21 20:00] VITALS: BP 146/96
--- NOTE | 2019-05-21 20:02 | NUR ---
NURSE NOTES: Received report from NALLELY Garcia. Patient is in bed, awake and responsive, breathing regular and unlabored with no s/s of SOB noted at this time. Patient denies any discomfort at this time. Patient is aware to call nurse if she needs anything, patient verbalizes understanding. Bed is in lowest position, breaks engaged, and call light is within reach. All other needs attended to, will continue to monitor.
[2019-05-21] MEDS: Theophylline ER 100mg ORAL SCH (20:36)
[2019-05-21] MEDS: Heparin 5000 units/ml inj SUBQ SCH (20:36)
--- NOTE | 2019-05-21 23:09 | History & Physical ---
History and Physical History & Physicial Delfino Calderon MD May 21, 2019 23:09
[2019-05-22] VITALS: BP 114/58
[2019-05-22] MEDS: Solu-MEDROL 125mg Inj IV SCH ×5 (00:24→23:09)
--- NOTE | 2019-05-22 00:30 | History and Physical Report ---
DATE OF ADMISSION: 05/21/2019 CHIEF COMPLAINT: Shortness of breath and cough. HISTORY OF PRESENT ILLNESS: This is a 49-year-old female with past medical history significant for coronary artery disease with history of [place], status post stent placement x2 in 2008 as well as history of hypertension, and ex-smoker, quit smoking about 11 years ago and former drug abuse who presented to the emergency department complaining about cough and chest congestion over one day. The patient states that she had a productive cough with tinge of bloody phlegm and she has been having sick contacts with the people who had the flu. She denies any chest pain or denies any loss of consciousness. Denies any nausea or vomiting. Shortly after initial evaluation in the emergency department, the patient was admitted to the hospital with productive cough, possible pneumonia versus tuberculosis. PAST MEDICAL HISTORY/PAST SURGICAL HISTORY: As above history of coronary artery disease with prior history of myocardial infarction, status post stent placement x2 in 2008, hypertension, and ex-smoker, quit about 11 years ago and former substance abuse. MEDICATIONS AT HOME: Significant for aspirin and metoprolol and Xanax as needed. SOCIAL HISTORY: The patient denies any smoking, alcohol, or drugs at this time. She was an ex-smoker, quit about 11 years ago as well as former drug abuse. ALLERGIES: Penicillin and morphine. FAMILY HISTORY: Noncontributory. REVIEW OF SYSTEMS: Mostly as above. Denies any fever or chills. Denies any hematochezia or gum bleeding. Denies any seizure activity. Denies any bowel or urine incontinence. PHYSICAL EXAMINATION: VITAL SIGNS: On admission, temperature 97.2, pulse of 87, respirations 26, and blood pressure 164/83, repeat one is 145/85. GENERAL: The patient is awake and responsive, in no acute distress. HEAD AND NECK: Pupils are equal and reactive to light. Extraocular movements intact. NECK: Supple. No JVD. LUNGS: Good air entry. No wheezing or rales. Decreased air in bases. HEART: S1 and S2. Distant heart sounds. No murmurs or gallops. ABDOMEN: Soft, nondistended, and nontender. Morbidly obese. EXTREMITIES: No cyanosis, clubbing, or edema. NEUROLOGIC: Cranial nerves II through XII grossly intact. Motor strength 5/5 in all extremities. Gait is intact. RECTAL/GENITOURINARY: Refused and deferred. PSYCHIATRIC: Mood and affect is intact. LABORATORY AND DIAGNOSTIC DATA: On admission, WBC of 6.7, hemoglobin 15, hematocrit 45, and platelet is 300. Sodium 140, potassium 4.0, chloride 105, bicarb 24, BUN 8, and creatinine 0.8. Lactic acid 1.1. Calcium is 8.4. First troponin is 0.001. LDH is 355. ProBNP of 921. Lipase is 145. ABG, pH of 7.38, pCO2 of 34, pO2 of 71, and saturating 93%. PT of 9.7, INR 0.9, and PTT of 27. Rapid HIV test is negative. The patient had a CT of the chest done noted to have bilateral diffuse ground-glass opacity and may in part be artificial, but could indicate diffuse pulmonary edema, particularly given the finding of the prior study. No focal dense consolidation, no evidence of the pulmonary masses. ASSESSMENT: 1. Shortness of breath and cough, possibly due to pneumonia versus acute congestive heart failure. 2. Productive hemoptysis, possible TB versus pneumonia. 3. Coronary artery disease with prior history of myocardial infarction, status post PTCA with stent placement x2. 4. Hypertension. 5. Morbid obesity. 6. Ex-smoker. PLAN: 1. Admit the patient to monitored unit. 2. We will follow up with Dr. Rene Arriaga from Cardiology as well as Dr. Napier, Pulmonary Critical Care and Dr. Rich from Infectious Disease. 3. Broad-spectrum antibiotic with Rocephin and start the patient on Solu-Medrol 60 mg IV q.6 h. 4. Follow up with cultures and PPD placement. The patient is placed on the respiratory isolation room. 5. Code status, Full code. 6. DVT prophylaxis with heparin subcutaneous. 7. We will monitor laboratory as well as culture in the morning. Delfino Calderon M.D. DR: KASSIE JOB#: [id number] CC:
--- NOTE | 2019-05-22 02:45 | Consultation ---
DATE OF CONSULTATION: 05/21/2019 CARDIOLOGY CONSULTATION CONSULTING PHYSICIAN: Rene Arriaga M.D. REFERRING PHYSICIAN: Ragini Napier M.D. REASON FOR REFERRAL: History of coronary artery disease. HISTORY OF PRESENT ILLNESS: This is a 49-year-old female, who has a history of multiple medical problems as delineated below. The patient is usually followed at [facility] by Dr. Trevor Oro. She does have a history of coronary artery disease, for which she underwent a myocardial stent placement a number of years ago. She has been relatively well. Her symptoms at that time was tightness in the chest and some feeling of anxiety. She has had anxiety issues now for some time and had some shortness of breath. She has seen a freight adjuster and got inhaler, really has not helped. She came into the hospital because of development of coughing as of yesterday with increasing degree to the point that she got short of breath that she coughed up some specks of blood. She presented to the emergency room and was admitted to the hospital for evaluation for possible tuberculosis. She has no pain, pressure, tightness, or heaviness in the chest. No other symptoms that she had with her prior myocardial infarction she noticed at this time. She does have shortness of breath as mentioned yesterday. She is quite active, usually 5 days a week she does cardio, and at no time during her cardiac exercises she has chest pain or shortness of breath. She has no PND. She does have two pillows that she uses on a regular basis for coughing, she has had previously as well. PAST MEDICAL HISTORY: Positive for history of coronary artery disease as mentioned with a history of stenting previously. She does not have diabetes. She does have intermittent asthma with depression, hypertension, low back pain, vulvovaginitis, and malignant skin lesions. No audible stroke. No hepatitis or tuberculosis. No ulcers. No kidney problems, liver problems, thyroid problems, anemia, arthritis, HIV, or AIDS. ALLERGIES: She is allergic to penicillin that causes vaginal irritation, and morphine that causes a rash. FAMILY HISTORY: Alzheimer in father, cancer in mother, possibly breast metastases and hypertension in maternal grandmother. REVIEW OF SYSTEMS: GASTROINTESTINAL: Otherwise negative. GENITOURINARY: Negative. PULMONARY: As mentioned, coughing and wheezing. CONSTITUTIONAL: Negative. No weight loss. No fever, chills, or night sweats. NEUROLOGIC: Negative. PHYSICAL EXAMINATION: GENERAL: Shows to be a tall female, in no respiratory distress. VITAL SIGNS: Blood pressure is 122/70, heart rate of 80, and temperature of 96.8. NECK: Supple. No jugular venous distention. LUNGS: Clear to auscultation and percussion. CARDIAC: S1 is normal. S2 is normal. Regular rate and rhythm. No heaves, thrills, gallops, or rubs are noted. ABDOMEN: Soft and nontender. Positive bowel sounds. EXTREMITIES: There is no clubbing, cyanosis, or edema. NEUROLOGIC: She is awake, alert, and responsive, in no apparent respiratory distress. She is in isolation room for possible tuberculosis. DIAGNOSTIC DATA: White count is 6.7, hemoglobin 15.8, and platelet count of 307,000. Sodium 140, potassium 4.0, chloride 105, bicarb 24, BUN of 8, creatinine 0.8, and glucose of 105. Calcium is 8.4. Bilirubin 0.6. Troponin 0.01. ProBNP of 921. LDH of 355. Total protein 7.1. Lipase of 149. INR 0.9 and PTT of 27. Blood gases, pH of 7.38, pCO2 34, pO2 71, and 93% saturation on room air. Her chest x-ray performed in the emergency room shows bilateral diffuse interstitial and airspace infiltrates versus edema. CT scan of the chest shows no acute pulmonary processes, having artifactual component, however, due to motion. Heart is upper limits of normal. No pericardial effusion. No mediastinal or hilar adenopathy. Bones are unremarkable. Bilateral diffuse ground-glass opacity may in fact be artifactual, but could indicate pulmonary edema, particularly given the findings on prior chest x-ray. EKG shows normal sinus rhythm, normal QRS axis, no ST or T-wave abnormalities of any significant degree. This was repeated on 2 occasions. ASSESSMENT AND PLAN: 1. Cough and bilateral pulmonary infiltrates. 2. Coronary artery disease with history of stenting. 3. History of hypertension. 4. History of asthma. 5. Depression. PLAN: Dr. Napier, this patient was seen in cardiac consultation. The patient does have a history of coronary artery disease, but does not appear to be active at the present time. No changes and no evidence of myonecrosis. Repeat cardiac enzymes will be performed. Echocardiogram will be performed. The infiltrative process in the differential diagnosis is a possibility of pulmonary edema. She does not seem to have signs of that on examination and her BNP is not significantly elevated. An echocardiogram will be ordered. I doubt that this is a cardiac issue. Nevertheless, depending on the findings of the above. I will follow the patient along with you. Rene Arriaga M.D. DR: ASHLYN JOB#: [id number] CC:
[2019-05-22 04:00] VITALS: BP 116/60
[2019-05-22] MEDS: Albuterol/Ipratropium 3ml neb HHN PRN (06:34)
--- NOTE | 2019-05-22 07:40 | NUR ---
NURSE NOTES: Nurse report given by NALLELY Saleh. Patient's awake and sitting in bed to eat breakfast, high howell position. Bed low and locked, call light within reach, side rails x 2. AAO x 4, denies pain, no s/s of distress or SOB, breathing is unlabored. IV is saline locked, patent and asymptomatic, gastroenterology nurse is on. Will continue to monitor.
--- NOTE | 2019-05-22 07:54 | Pulmonology Progress Note ---
Assessment/Plan Problems: (1) Atypical pneumonia (2) Hemoptysis (3) Anxiety and depression (4) CAD (coronary artery disease) (5) Stented coronary artery Assessment/Plan CT reviewed, no nodular density or cavitary lesion. Will DC isolation cardio and ID note reviewed hemodynamically stable symptomatic treatment dvt prophylaxis. continue Tamiflu, looks like Flu Subjective ROS Limited/Unobtainable: No Interval Events: improving slightly Allergies: Coded Allergies: MORPHINE (Verified Adverse Reaction, Severe, 08/21/13) headache PENICILLINS (Verified Adverse Reaction, Severe, 05/21/19) vaginal yeast Objective Last 24 Hour Vital Signs Date Time Temp Pulse Resp B/P (MAP) Pulse Ox O2 Delivery O2 Flow Rate FiO2 05/22/19 07:01 95 Nasal Cannula 2.0 28 05/22/19 04:00 76 05/22/19 04:00 2.0 28 05/22/19 04:00 97.6 84 18 116/60 (78) 97 05/22/19 00:00 97.0 89 18 114/58 (76) 98 05/22/19 00:00 91 05/21/19 21:00 Nasal Cannula 2.0 05/21/19 20:00 87 05/21/19 20:00 97.1 81 20 146/96 (113) 99 05/21/19 20:00 2.0 28 05/21/19 19:34 94 Nasal Cannula 2.0 28 05/21/19 16:00 81 05/21/19 16:00 96.8 80 20 123/71 (88) 94 05/21/19 16:00 2.0 05/21/19 14:26 81 18 95 Nasal Cannula 3.0 32 74 18 93 05/21/19 14:25 74 18 93 Nasal Cannula 3.0 32 05/21/19 14:25 93 Nasal Cannula 2.0 28 05/21/19 12:00 74 05/21/19 12:00 97.7 74 21 128/76 (93) 91 05/21/19 12:00 2.0 05/21/19 11:01 Nasal Cannula 2.0 05/21/19 10:59 74 05/21/19 10:20 77 18 122/72 95 Nasal Cannula 2.0 Intake and Output 05/21/19 05/22/19 19:00 07:00 Intake Total 300 ml Output Total 4 ml Balance 300 ml -4 ml Intake Oral 300 ml Output Urine Total 4 ml # Voids 3 General Appearance: WD/WN HEENT: normocephalic, atraumatic Cardiovascular: normal rate Abdomen: normal bowel sounds, soft, non tender Genitourinary: normal external genitalia Extremities: no cyanosis Skin: no rash Neurologic/Psychiatric: tdp displays analyst II-XII grossly normal Laboratory Tests 05/22/19 07:28: Troponin I [Pending], Pro-B-Type Natriuretic Peptide [Pending] Current Medications Medications (Trade) Dose Ordered Sig/Xena Route PRN Reason Start Time Stop Time Status Last Admin Dose Admin Acetaminophen (Tylenol) 650 mg Q6H PRN ORAL Mild Pain/Temp > 100.5 05/21/19 22:30 06/20/19 22:29 Albuterol/ Ipratropium (Albuterol/ Ipratropium) 3 ml EVERY 4 HOURS PRN HHN dyspnea 05/21/19 11:15 05/26/19 11:14 05/22/19 06:34 Alprazolam (Xanax) 0.25 mg TID PRN ORAL For Anxiety 05/21/19 11:15 05/28/19 11:14 05/21/19 13:40 Ceftriaxone Sodium 1 gm/ Dextrose 55 ml @ 110 mls/hr Q24H IVPB 05/21/19 14:00 05/28/19 13:59 05/21/19 14:41 Dextrose (Dextrose 50%) 25 ml Q30M PRN IV Hypoglycemia 05/21/19 11:15 06/20/19 11:14 Dextrose (Dextrose 50%) 50 ml Q30M PRN IV Hypoglycemia 05/21/19 11:15 06/20/19 11:14 Heparin Sodium (Porcine) (Heparin 5000 units/ml) 5,000 units EVERY 12 HOURS SUBQ 05/21/19 21:00 06/20/19 20:59 05/21/19 20:36 Lidocaine (Xylocaine 1% MPF 5ml) 10 ml EVERY 4 HOURS PRN HHN cough 05/21/19 11:15 06/20/19 11:14 Methylprednisolone Sodium Succinate (Solu-MEDROL) 60 mg EVERY 6 HOURS IV 05/21/19 12:00 06/20/19 11:59 05/22/19 05:28 Nitroglycerin (Ntg) 0.4 mg Q5M X 3 DOSES PRN SL Prn Chest Pain 05/21/19 11:15 06/20/19 11:14 Ondansetron HCl (Zofran) 4 mg Q6H PRN IVP Nausea & Vomiting 05/21/19 11:15 06/20/19 11:14 Oseltamivir Phosphate (Tamiflu) 75 mg TWICE A DAY ORAL 05/21/19 13:15 05/26/19 13:14 05/21/19 17:27 Promethazine HCl/ Codeine (Phenergan with Codeine) 5 ml Q6H PRN ORAL cough 05/21/19 11:15 06/20/19 11:14 Temazepam (Restoril) 15 mg HSPRN PRN ORAL Insomnia 05/21/19 11:15 05/28/19 11:14 Theophylline (Edson-Dur) 100 mg EVERY 12 HOURS ORAL 05/21/19 21:00 06/20/19 20:59 05/21/19 20:36 Ragini Napier MD May 22, 2019 07:54
[2019-05-22 08:00] VITALS: BP 154/77
[2019-05-22] MEDS: Oseltamivir 75mg cap ORAL SCH ×2 (08:54→17:20)
[2019-05-22] MEDS: Theophylline ER 100mg ORAL SCH ×2 (08:54→20:18)
[2019-05-22] MEDS: Heparin 5000 units/ml inj SUBQ SCH ×2 (08:55→20:24)
--- NOTE | 2019-05-22 09:57 | NUR ---
NURSE NOTES: Contacted Dr. Napier regarding patient's lab result came back positive for Benzodiazepines and Marijuana. No new order at this time.
[2019-05-22] MEDS: ALPRAZolam 0.25mg tab ORAL PRN (11:08)
[2019-05-22 12:00] VITALS: BP 144/92
[2019-05-22] MEDS: cefTRIAXone 1 GM in D5W 55 ML IVPB SCH (13:23)
[2019-05-22 16:00] VITALS: BP 140/73
--- NOTE | 2019-05-22 16:04 | Cardiology Progress Note ---
Assessment/Plan Problem List: (1) Atypical pneumonia (2) CAD (coronary artery disease) (3) Hemoptysis Status: stable, progressing Status Narrative Ms. Schuster is stable from a cardiac standpoint. She has hx of CAD w/ previous stent, but no current anginal symptoms. She does not appear in CHF. Rhythm stable on telemetry Assessment/Plan continue evaluation/ management of bronchitis/ pneumonia per primary team. continue asa, statin , b andre for CAD w/ previous stent. Subjective ROS Limited/Unobtainable: No Subjective Cardiology for Dr. Arriaga Pt w/ cough, one episode of blood-tinged sputum. No chest pain Objective Last 24 Hour Vital Signs Date Time Temp Pulse Resp B/P (MAP) Pulse Ox O2 Delivery O2 Flow Rate FiO2 05/22/19 12:00 80 05/22/19 12:00 2.0 05/22/19 12:00 96.6 79 18 144/92 (109) 99 05/22/19 09:00 Nasal Cannula 2.0 05/22/19 08:00 86 05/22/19 08:00 2.0 05/22/19 08:00 97.7 76 18 154/77 (102) 99 05/22/19 07:01 95 Nasal Cannula 2.0 28 05/22/19 04:00 76 05/22/19 04:00 2.0 28 05/22/19 04:00 97.6 84 18 116/60 (78) 97 05/22/19 00:00 97.0 89 18 114/58 (76) 98 05/22/19 00:00 91 05/21/19 21:00 Nasal Cannula 2.0 05/21/19 20:00 87 05/21/19 20:00 97.1 81 20 146/96 (113) 99 05/21/19 20:00 2.0 28 05/21/19 19:34 94 Nasal Cannula 2.0 28 05/21/19 16:00 81 05/21/19 16:00 96.8 80 20 123/71 (88) 94 05/21/19 16:00 2.0 General Appearance: WD/WN, no apparent distress, alert EENT: PERRL/EOMI Neck: supple, no JVD Rhythm: NSR Cardiovascular: normal rate, regular rhythm, no gallop/murmur Respiratory/Chest: other - occ rhonchi Abdomen: non tender, soft Extremities: no swelling Intake and Output 05/21/19 05/22/19 19:00 07:00 Intake Total 300 ml Output Total 4 ml Balance 300 ml -4 ml Intake Oral 300 ml Output Urine Total 4 ml # Voids 3 Laboratory Tests Test 05/22/19 05:40 05/22/19 07:28 Urine Opiates Screen Negative (NEGATIVE) Urine Barbiturates Screen Negative (NEGATIVE) Phencyclidine (PCP) Screen Negative (NEGATIVE) Urine Amphetamines Screen Negative (NEGATIVE) Urine Benzodiazepines Screen Positive (NEGATIVE) H Urine Cocaine Screen Negative (NEGATIVE) Urine Marijuana (THC) Screen Positive (NEGATIVE) H Troponin I 0.000 ng/mL (0.000-0.056) Pro-B-Type Natriuretic Peptide 255 pg/mL (0-125) H Cryptococcus Antigen Pending Bhavya Oquendo MD May 22, 2019 16:04
--- NOTE | 2019-05-22 16:10 | NUR ---
NURSE NOTES: Spoke to the sulky driver regarding about [facility] is not done. International Manager said they do it only in the weekdays from M-F 0600 to 1200. Told her that Dr. Napier order at 11:25 05/21/2019, she said it's already too late to process the order. Will endorsed to receiving nurses to follow up with the order on Friday05/24/19 AM.
--- NOTE | 2019-05-22 17:59 | Internal Med Progress Note ---
Subjective Date of Service: May 22, 2019 Physician Name Sebas Perez Attending Physician Delfino Calderon MD Current Medications Medications (Trade) Dose Ordered Sig/Xena Route PRN Reason Start Time Stop Time Status Last Admin Dose Admin Acetaminophen (Tylenol) 650 mg Q6H PRN ORAL Mild Pain/Temp > 100.5 05/21/19 22:30 06/20/19 22:29 Albuterol/ Ipratropium (Albuterol/ Ipratropium) 3 ml EVERY 4 HOURS PRN HHN dyspnea 05/21/19 11:15 05/26/19 11:14 05/22/19 06:34 Alprazolam (Xanax) 0.25 mg TID PRN ORAL For Anxiety 05/21/19 11:15 05/28/19 11:14 05/22/19 11:08 Aspirin (Ecotrin) 81 mg DAILY ORAL 05/23/19 09:00 06/22/19 08:59 Atorvastatin Calcium (Lipitor) 20 mg BEDTIME ORAL 05/22/19 21:00 06/21/19 20:59 Ceftriaxone Sodium 1 gm/ Dextrose 55 ml @ 110 mls/hr Q24H IVPB 05/21/19 14:00 05/28/19 13:59 05/22/19 13:23 Dextrose (Dextrose 50%) 25 ml Q30M PRN IV Hypoglycemia 05/21/19 11:15 06/20/19 11:14 Dextrose (Dextrose 50%) 50 ml Q30M PRN IV Hypoglycemia 05/21/19 11:15 06/20/19 11:14 Heparin Sodium (Porcine) (Heparin 5000 units/ml) 5,000 units EVERY 12 HOURS SUBQ 05/21/19 21:00 06/20/19 20:59 05/22/19 08:55 Lidocaine (Xylocaine 1% MPF 5ml) 10 ml EVERY 4 HOURS PRN HHN cough 05/21/19 11:15 06/20/19 11:14 Methylprednisolone Sodium Succinate (Solu-MEDROL) 60 mg EVERY 6 HOURS IV 05/21/19 12:00 06/20/19 11:59 05/22/19 17:20 Metoprolol Succinate (Toprol XL) 25 mg DAILY ORAL 05/23/19 09:00 06/22/19 08:59 Nitroglycerin (Ntg) 0.4 mg Q5M X 3 DOSES PRN SL Prn Chest Pain 05/21/19 11:15 06/20/19 11:14 Ondansetron HCl (Zofran) 4 mg Q6H PRN IVP Nausea & Vomiting 05/21/19 11:15 06/20/19 11:14 Oseltamivir Phosphate (Tamiflu) 75 mg TWICE A DAY ORAL 05/21/19 13:15 05/26/19 13:14 05/22/19 17:20 Promethazine HCl/ Codeine (Phenergan with Codeine) 5 ml Q6H PRN ORAL cough 05/21/19 11:15 06/20/19 11:14 Temazepam (Restoril) 15 mg HSPRN PRN ORAL Insomnia 05/21/19 11:15 05/28/19 11:14 Theophylline (Edson-Dur) 100 mg EVERY 12 HOURS ORAL 05/21/19 21:00 06/20/19 20:59 05/22/19 08:54 Allergies: Coded Allergies: MORPHINE (Verified Adverse Reaction, Severe, 08/21/13) headache PENICILLINS (Verified Adverse Reaction, Severe, 05/21/19) vaginal yeast ROS Limited/Unobtainable: No Constitutional: Reports: no symptoms HEENT: Reports: no symptoms Cardiovascular: Reports: no symptoms Respiratory: Reports: cough, shortness of breath Gastrointestinal/Abdominal: Reports: no symptoms Genitourinary: Reports: no symptoms Neurologic/Psychiatric: Reports: no symptoms Subjective 49 YO F admitted with cough and hemoptysis. Cover for Int Joe-Dr Calderon Objective Last Vital Signs Date Time Temp Pulse Resp B/P (MAP) Pulse Ox O2 Delivery O2 Flow Rate FiO2 05/22/19 16:00 94 05/22/19 16:00 97.9 18 140/73 (95) 100 05/22/19 16:00 2.0 05/22/19 09:00 Nasal Cannula 05/22/19 07:01 28 Laboratory Tests Test 05/22/19 05:40 05/22/19 07:28 Urine Opiates Screen Negative (NEGATIVE) Urine Barbiturates Screen Negative (NEGATIVE) Phencyclidine (PCP) Screen Negative (NEGATIVE) Urine Amphetamines Screen Negative (NEGATIVE) Urine Benzodiazepines Screen Positive (NEGATIVE) H Urine Cocaine Screen Negative (NEGATIVE) Urine Marijuana (THC) Screen Positive (NEGATIVE) H Troponin I 0.000 ng/mL (0.000-0.056) Pro-B-Type Natriuretic Peptide 255 pg/mL (0-125) H Cryptococcus Antigen Pending Intake and Output 05/21/19 05/22/19 19:00 07:00 Intake Total 300 ml Output Total 4 ml Balance 300 ml -4 ml Intake Oral 300 ml Output Urine Total 4 ml # Voids 3 Objective PHYSICAL EXAMINATION: GENERAL: The patient is awake and responsive, in no acute distress. HEAD AND NECK: Pupils are equal and reactive to light. Extraocular movements intact. NECK: Supple. No JVD. LUNGS: Good air entry. No wheezing or rales. Decreased air in bases. HEART: S1 and S2. Distant heart sounds. No murmurs or gallops. ABDOMEN: Soft, nondistended, and nontender. Morbidly obese. EXTREMITIES: No cyanosis, clubbing, or edema. NEUROLOGIC: Cranial nerves II through XII grossly intact. Motor strength 5/5 in all extremities. Gait is intact. RECTAL/GENITOURINARY: Refused and deferred. PSYCHIATRIC: Mood and affect is intact. Assessment/Plan Assessment/Plan ASSESSMENT: 1. Shortness of breath due to pneumonia 2. Productive hemoptysis, possible TB versus pneumonia. 3. Coronary artery disease with prior history of myocardial infarction, status post PTCA with stent placement x2. 4. Hypertension. 5. Morbid obesity. 6. Ex-smoker. PLAN: 1. Admit the patient to monitored unit. 2. We will follow up with Dr. Rene Arriaga from Cardiology as well as Dr. Napier, Pulmonary Critical Care and Dr. iRch from Infectious Disease. 3. antibiotic = Rocephin and 4. Solu-Medrol 60 mg IV q.6 h. 5. Follow up with cultures and PPD placement. The patient is placed on the respiratory isolation room. 6. Code status, Full code. 7. DVT prophylaxis with heparin subcutaneous. Sebas Perez MD May 22, 2019 17:59
--- NOTE | 2019-05-22 18:11 | Infectious Diseases Prog Note ---
Assessment/Plan Assessment/Plan Assessment/Plan: Assessment: Pneumonia- r/o Influenza- blood tinge sputum- doubt TB due to acuity of symptoms (1 day), absence of risk factors. Reviewed CT chest- no cavitary or nodular lesions -CT chest Bilateral diffuse groundglass opacities. May in part be artifactual , but could indicate diffuse pulmonary edema, particularly given findings on prior study. No focal dense consolidation. No evidence of pulmonary mass -CXR: Bilateral diffuse interstitial and airspace infiltrates versus edema Afebrile No Leukocytosis CAD/PR s/p stents x2 2009 HTN former drug abuser former smoker Plan: -Start empiric Ceftriaxone, Tamiflu #2 -f/u cx -Monitor CBC/CMP, temperatures -sp cx, influenza sc, reminded nurse to pls obtain -aspiration precautions -D/c airborne precautions and AFB sp cx Thank you for this consultation. Will continue to follow along with you. Subjective Allergies: Coded Allergies: MORPHINE (Verified Adverse Reaction, Severe, 08/21/13) headache PENICILLINS (Verified Adverse Reaction, Severe, 05/21/19) vaginal yeast Subjective Afebrile Feels much better No more blood tinged sputum Objective Vital Signs Last 24 Hour Vital Signs Date Time Temp Pulse Resp B/P (MAP) Pulse Ox O2 Delivery O2 Flow Rate FiO2 05/22/19 16:00 94 05/22/19 16:00 97.9 77 18 140/73 (95) 100 05/22/19 16:00 2.0 05/22/19 12:00 80 05/22/19 12:00 2.0 05/22/19 12:00 96.6 79 18 144/92 (109) 99 05/22/19 09:00 Nasal Cannula 2.0 05/22/19 08:00 86 05/22/19 08:00 2.0 05/22/19 08:00 97.7 76 18 154/77 (102) 99 05/22/19 07:01 95 Nasal Cannula 2.0 28 05/22/19 04:00 76 05/22/19 04:00 2.0 28 05/22/19 04:00 97.6 84 18 116/60 (78) 97 05/22/19 00:00 97.0 89 18 114/58 (76) 98 05/22/19 00:00 91 05/21/19 21:00 Nasal Cannula 2.0 05/21/19 20:00 87 05/21/19 20:00 97.1 81 20 146/96 (113) 99 05/21/19 20:00 2.0 28 05/21/19 19:34 94 Nasal Cannula 2.0 28 Height (Feet): 5 Height (Inches): 10.00 Weight (Pounds): 234 Objective Gen: NAD HEENT: anicteric sclera CV: RRR. no extra heart sounds Resp: RRR. unlabored. equal chest rise Abd: soft. no TTP Neuro: alert. interactive Laboratory Tests Test 05/22/19 05:40 05/22/19 07:28 Urine Opiates Screen Negative (NEGATIVE) Urine Barbiturates Screen Negative (NEGATIVE) Phencyclidine (PCP) Screen Negative (NEGATIVE) Urine Amphetamines Screen Negative (NEGATIVE) Urine Benzodiazepines Screen Positive (NEGATIVE) H Urine Cocaine Screen Negative (NEGATIVE) Urine Marijuana (THC) Screen Positive (NEGATIVE) H Troponin I 0.000 ng/mL (0.000-0.056) Pro-B-Type Natriuretic Peptide 255 pg/mL (0-125) H Cryptococcus Antigen Pending Current Medications Medications (Trade) Dose Ordered Sig/Xena Route PRN Reason Start Time Stop Time Status Last Admin Dose Admin Acetaminophen (Tylenol) 650 mg Q6H PRN ORAL Mild Pain/Temp > 100.5 05/21/19 22:30 06/20/19 22:29 Albuterol/ Ipratropium (Albuterol/ Ipratropium) 3 ml EVERY 4 HOURS PRN HHN dyspnea 05/21/19 11:15 05/26/19 11:14 05/22/19 06:34 Alprazolam (Xanax) 0.25 mg TID PRN ORAL For Anxiety 05/21/19 11:15 05/28/19 11:14 05/22/19 11:08 Aspirin (Ecotrin) 81 mg DAILY ORAL 05/23/19 09:00 06/22/19 08:59 Atorvastatin Calcium (Lipitor) 20 mg BEDTIME ORAL 05/22/19 21:00 06/21/19 20:59 Ceftriaxone Sodium 1 gm/ Dextrose 55 ml @ 110 mls/hr Q24H IVPB 05/21/19 14:00 05/28/19 13:59 05/22/19 13:23 Dextrose (Dextrose 50%) 25 ml Q30M PRN IV Hypoglycemia 05/21/19 11:15 06/20/19 11:14 Dextrose (Dextrose 50%) 50 ml Q30M PRN IV Hypoglycemia 05/21/19 11:15 06/20/19 11:14 Heparin Sodium (Porcine) (Heparin 5000 units/ml) 5,000 units EVERY 12 HOURS SUBQ 05/21/19 21:00 06/20/19 20:59 05/22/19 08:55 Lidocaine (Xylocaine 1% MPF 5ml) 10 ml EVERY 4 HOURS PRN HHN cough 05/21/19 11:15 06/20/19 11:14 Methylprednisolone Sodium Succinate (Solu-MEDROL) 60 mg EVERY 6 HOURS IV 05/21/19 12:00 06/20/19 11:59 05/22/19 17:20 Metoprolol Succinate (Toprol XL) 25 mg DAILY ORAL 05/23/19 09:00 06/22/19 08:59 Nitroglycerin (Ntg) 0.4 mg Q5M X 3 DOSES PRN SL Prn Chest Pain 05/21/19 11:15 06/20/19 11:14 Ondansetron HCl (Zofran) 4 mg Q6H PRN IVP Nausea & Vomiting 05/21/19 11:15 06/20/19 11:14 Oseltamivir Phosphate (Tamiflu) 75 mg TWICE A DAY ORAL 05/21/19 13:15 05/26/19 13:14 05/22/19 17:20 Promethazine HCl/ Codeine (Phenergan with Codeine) 5 ml Q6H PRN ORAL cough 05/21/19 11:15 06/20/19 11:14 Temazepam (Restoril) 15 mg HSPRN PRN ORAL Insomnia 05/21/19 11:15 05/28/19 11:14 Theophylline (Edson-Dur) 100 mg EVERY 12 HOURS ORAL 05/21/19 21:00 06/20/19 20:59 05/22/19 08:54 Red Merida MD May 22, 2019 18:11
--- NOTE | 2019-05-22 19:17 | NUR ---
HAND-OFF: Report given to NALLELY Valente. Patient's stable, plan of care endorsed.
--- NOTE | 2019-05-22 19:30 | NUR ---
NURSE NOTES: Received patient from Radha BROWNING. Patient in bed, on room air, no signs of respiratory distress. Bed in low position, locked, call light within reach.
[2019-05-22 20:00] VITALS: BP 154/91
[2019-05-22] MEDS ORDERED: Atorvastatin 20mg tab ORAL SCH (21:00)
[2019-05-23] VITALS: BP 150/94
[2019-05-23 04:00] VITALS: BP 151/87
[2019-05-23] MEDS: ALPRAZolam 0.25mg tab ORAL PRN (04:30)
[2019-05-23] MEDS: Solu-MEDROL 125mg Inj IV SCH ×3 (05:50→18:00)
--- NOTE | 2019-05-23 07:28 | NUR ---
HAND-OFF: Report given to Min RN.
--- NOTE | 2019-05-23 07:28 | NUR ---
NURSE NOTES: Received report from Ambrosio BROWNING. Pt in bed awake and oriented x4. No c/o pain. Denied SOB on room air. Saturating with 97% on room air. IV site in RAC 22G SL but pt c/o pain SO IV removed. Will insert a new IV line. Bed locked and placed in lowest position. Side railsx2 up for safety. No isolation confirmed by Dr. Napier. Will continue to plan of care.
[2019-05-23 08:00] VITALS: BP 140/82
[2019-05-23 08:22] LABS: HEMATOCRIT 44.4 % (37.0-47.0); HEMOGLOBIN 15.6 G/DL (12.0-16.0); MEAN CORPUSCULAR VOLUME 90 FL (80-99); PLATELET COUNT 315 K/UL (150-450); RED BLOOD COUNT 4.92 M/UL (4.20-5.40); RED CELL DISTRIBUTION WIDTH 12.6 % (11.6-14.8); WHITE BLOOD COUNT 18.6 K/UL (4.8-10.8)
[2019-05-23] MEDS: Heparin 5000 units/ml inj SUBQ SCH ×2 (08:50→20:34)
[2019-05-23] MEDS: Oseltamivir 75mg cap ORAL SCH ×2 (08:53→17:09)
[2019-05-23] MEDS: Theophylline ER 100mg ORAL SCH ×2 (08:53→20:32)
[2019-05-23] MEDS ORDERED: Metoprolol Succinate XL 25mg tab ORAL SCH ×2 (09:00)
[2019-05-23] MEDS ORDERED: Aspirin EC 81mg tab ORAL SCH (09:00)
[2019-05-23] MEDS ORDERED: Aspirin Baby 81mg ORAL SCH (09:00)
[2019-05-23 09:17] LABS: ALANINE AMINOTRANSFERASE 48 U/L (12-78); ALBUMIN/GLOBULIN RATIO 0.8 (1.0-2.7); ALKALINE PHOSPHATASE 81 U/L (46-116); ANION GAP 10 mmol/L (5-15); ASPARTATE AMINO TRANSFERASE 23 U/L (15-37); BILIRUBIN,TOTAL 0.4 MG/DL (0.2-1.0); BLOOD UREA NITROGEN 18 mg/dL (7-18); CALCIUM 8.6 MG/DL (8.5-10.1); CARBON DIOXIDE 25 MMOL/L (21-32); CHLORIDE 104 MMOL/L (98-107); SODIUM 139 MMOL/L (136-145)
[2019-05-23 12:00] VITALS: BP_SYST 149; BP_DIAS 90; BP_DIAS 99
[2019-05-23] MEDS: cefTRIAXone 1 GM in D5W 55 ML IVPB SCH (13:05)
--- NOTE | 2019-05-23 14:13 | NUR ---
HAND-OFF: Report given to Sylvia NORTH. Pt remains stable.
[2019-05-23] MEDS ORDERED: Nitroglycerin Subl 0.4mg tab SL PRN (14:15)
--- NOTE | 2019-05-23 14:15 | NUR ---
NURSE NOTES: RECEIVED PATIENT A/A/OX4, PLEASANT. PERSONAL BELONGINGS NOTED. SKIN IS INTACT. AMBULATORY. KEEP BED IN THE LOWEST POSITION. BED ALARM ENGAGED AND LOCKED. SIDERAILS ARE UP X2. CALL LIGHT IS WITHIN REACH. WILL CONT TO MONITOR.
--- NOTE | 2019-05-23 14:25 | Diagnostic Imaging Report ---
EXAM: XR Chest, 1 View CLINICAL HISTORY: DYSPNEA TECHNIQUE: Frontal view of the chest. COMPARISON: Chest x-ray 05/21/19 524 FINDINGS: Lungs: Interval resolution of previously seen bilateral airspace opacities. Pleural space: Unremarkable. No pneumothorax. Heart: Unremarkable. No cardiomegaly. Mediastinum: Unremarkable. Bones/joints: Unremarkable. IMPRESSION: Interval resolution of previously seen bilateral airspace opacities.
[2019-05-23] MEDS ORDERED: Promethazine/Codeine 5ml UD ORAL PRN (15:00)
[2019-05-23] MEDS ORDERED: Lidocaine 1% MPF 10mg/ml 5ml HHN PRN (15:00)
[2019-05-23] MEDS ORDERED: Albuterol/Ipratropium 3ml neb HHN PRN (15:00)
[2019-05-23] MEDS ORDERED: ALPRAZolam 0.25mg tab ORAL PRN (15:00)
--- NOTE | 2019-05-23 15:10 | Internal Med Progress Note ---
Subjective Date of Service: May 23, 2019 Physician Name Sebas Perez Attending Physician Delfino Calderon MD Current Medications Medications (Trade) Dose Ordered Sig/Xena Route PRN Reason Start Time Stop Time Status Last Admin Dose Admin Acetaminophen (Tylenol) 650 mg Q6H PRN ORAL Mild Pain/Temp > 100.5 05/23/19 18:00 06/20/19 17:59 Albuterol/ Ipratropium (Albuterol/ Ipratropium) 3 ml Q4H PRN HHN dyspnea 05/23/19 15:00 05/28/19 14:59 Alprazolam (Xanax) 0.25 mg TIDPRN PRN ORAL For Anxiety 05/23/19 15:00 05/30/19 14:59 Aspirin (Ecotrin) 81 mg DAILY ORAL 05/24/19 09:00 06/22/19 08:59 Atorvastatin Calcium (Lipitor) 20 mg BEDTIME ORAL 05/23/19 21:00 06/21/19 20:59 Ceftriaxone Sodium 1 gm/ Dextrose 55 ml @ 110 mls/hr Q24H IVPB 05/24/19 14:00 05/28/19 13:59 Dextrose (Dextrose 50%) 25 ml Q30M PRN IV Hypoglycemia 05/23/19 14:15 06/20/19 11:14 Dextrose (Dextrose 50%) 50 ml Q30M PRN IV Hypoglycemia 05/23/19 14:15 06/20/19 11:14 Heparin Sodium (Porcine) (Heparin 5000 units/ml) 5,000 units EVERY 12 HOURS SUBQ 05/23/19 21:00 06/20/19 20:59 Lidocaine (Xylocaine 1% MPF 5ml) 10 ml Q4H PRN HHN cough 05/23/19 15:00 06/22/19 14:59 Methylprednisolone Sodium Succinate (Solu-MEDROL) 60 mg EVERY 6 HOURS IV 05/23/19 18:00 06/20/19 11:59 Metoprolol Succinate (Toprol XL) 25 mg DAILY ORAL 05/24/19 09:00 06/22/19 08:59 Nitroglycerin (Ntg) 0.4 mg Q5M X 3 DOSES PRN SL Prn Chest Pain 05/23/19 14:15 06/20/19 11:14 Ondansetron HCl (Zofran) 4 mg Q6H PRN IVP Nausea & Vomiting 05/23/19 15:00 06/20/19 14:59 Oseltamivir Phosphate (Tamiflu) 75 mg TWICE A DAY ORAL 05/23/19 18:00 05/26/19 13:14 Promethazine HCl/ Codeine (Phenergan with Codeine) 5 ml Q6H PRN ORAL cough 05/23/19 15:00 06/20/19 14:59 Temazepam (Restoril) 15 mg HSPRN PRN ORAL Insomnia 05/23/19 18:00 05/30/19 17:59 Theophylline (Edson-Dur) 100 mg EVERY 12 HOURS ORAL 05/23/19 21:00 06/20/19 20:59 Allergies: Coded Allergies: MORPHINE (Verified Adverse Reaction, Severe, 08/21/13) headache PENICILLINS (Verified Adverse Reaction, Severe, 05/21/19) vaginal yeast ROS Limited/Unobtainable: No Constitutional: Reports: no symptoms HEENT: Reports: no symptoms Cardiovascular: Reports: no symptoms Respiratory: Reports: cough, shortness of breath Gastrointestinal/Abdominal: Reports: no symptoms Genitourinary: Reports: no symptoms Neurologic/Psychiatric: Reports: no symptoms Subjective 49 YO F admitted with cough and hemoptysis. Cover for Int Joe-Dr Calderon Objective Last Vital Signs Date Time Temp Pulse Resp B/P (MAP) Pulse Ox O2 Delivery O2 Flow Rate FiO2 05/23/19 12:00 2.0 05/23/19 12:00 97.6 77 18 149/90 (109) 97 05/23/19 09:00 Nasal Cannula 05/22/19 20:11 21 Laboratory Tests Test 05/23/19 08:05 White Blood Count 18.6 K/UL (4.8-10.8) H Red Blood Count 4.92 M/UL (4.20-5.40) Hemoglobin 15.6 G/DL (12.0-16.0) Hematocrit 44.4 % (37.0-47.0) Mean Corpuscular Volume 90 FL (80-99) Mean Corpuscular Hemoglobin 31.7 PG (27.0-31.0) H Mean Corpuscular Hemoglobin Concent 35.2 G/DL (32.0-36.0) Red Cell Distribution Width 12.6 % (11.6-14.8) Platelet Count 315 K/UL (150-450) Mean Platelet Volume 8.7 FL (6.5-10.1) Neutrophils (%) (Auto) % (45.0-75.0) Lymphocytes (%) (Auto) % (20.0-45.0) Monocytes (%) (Auto) % (1.0-10.0) Eosinophils (%) (Auto) % (0.0-3.0) Basophils (%) (Auto) % (0.0-2.0) Differential Total Cells Counted 100 Neutrophils % (Manual) 87 % (45-75) H Lymphocytes % (Manual) 5 % (20-45) L Monocytes % (Manual) 2 % (1-10) Eosinophils % (Manual) 0 % (0-3) Basophils % (Manual) 0 % (0-2) Band Neutrophils 6 % (0-8) Platelet Estimate Adequate Platelet Morphology Normal Red Blood Cell Morphology Normal Sodium Level 139 MMOL/L (136-145) Potassium Level 4.0 MMOL/L (3.5-5.1) Chloride Level 104 MMOL/L (98-107) Carbon Dioxide Level 25 MMOL/L (21-32) Anion Gap 10 mmol/L (5-15) Blood Urea Nitrogen 18 mg/dL (7-18) Creatinine 1.0 MG/DL (0.55-1.30) Estimat Glomerular Filtration Rate > 60 mL/min (>60) Glucose Level 186 MG/DL (74-106) H Calcium Level 8.6 MG/DL (8.5-10.1) Total Bilirubin 0.4 MG/DL (0.2-1.0) Aspartate Amino Transf (AST/SGOT) 23 U/L (15-37) Alanine Aminotransferase (ALT/SGPT) 48 U/L (12-78) Alkaline Phosphatase 81 U/L (46-116) Pro-B-Type Natriuretic Peptide 1639 pg/mL (0-125) H Total Protein 7.0 G/DL (6.4-8.2) Albumin 3.0 G/DL (3.4-5.0) L Globulin 4.0 g/dL Albumin/Globulin Ratio 0.8 (1.0-2.7) L Microbiology Date/Time Source Procedure Growth Status 05/21/19 04:55 Blood Blood Culture - Preliminary NO GROWTH AFTER 24 HOURS Resulted 05/21/19 04:40 Blood Blood Culture - Preliminary NO GROWTH AFTER 24 HOURS Resulted 05/22/19 23:10 Nasal Nares - Final Complete 05/22/19 23:10 Nasal Nares - Final Complete 05/21/19 14:51 Sputum Gram Stain - Final Complete 05/21/19 14:51 Sputum Sputum Culture - Final NORMAL UPPER RESPIRATORY EM PRESENT Complete Intake and Output 05/22/19 05/23/19 19:00 07:00 Intake Total 490 ml Balance 490 ml Intake Oral 490 ml # Voids 2 2 # Bowel Movements 2 Objective PHYSICAL EXAMINATION: GENERAL: The patient is awake and responsive, in no acute distress. HEAD AND NECK: Pupils are equal and reactive to light. Extraocular movements intact. NECK: Supple. No JVD. LUNGS: Good air entry. No wheezing or rales. Decreased air in bases. HEART: S1 and S2. Distant heart sounds. No murmurs or gallops. ABDOMEN: Soft, nondistended, and nontender. Morbidly obese. EXTREMITIES: No cyanosis, clubbing, or edema. NEUROLOGIC: Cranial nerves II through XII grossly intact. Motor strength 5/5 in all extremities. Gait is intact. RECTAL/GENITOURINARY: Refused and deferred. PSYCHIATRIC: Mood and affect is intact. Assessment/Plan Assessment/Plan ASSESSMENT: 1. Shortness of breath due to pneumonia 2. Productive hemoptysis, possible TB versus pneumonia. 3. Coronary artery disease with prior history of myocardial infarction, status post PTCA with stent placement x2. 4. Hypertension. 5. Morbid obesity. 6. Ex-smoker. PLAN: 1. Admit the patient to monitored unit. 2. Dr. Rene Arriaga = Cardiology Dr. Napier = Pulmonary Critical Care Dr. Rich = Infectious Disease. 3. antibiotic = Rocephin 4. Solu-Medrol 60 mg IV q.6 h. 5. Follow up with cultures and PPD placement. D/C respiratory isolation per ID. 6. Code status, Full code. 7. DVT prophylaxis with heparin subcutaneous. Sebas Perez MD May 23, 2019 15:10
--- NOTE | 2019-05-23 15:59 | Pulmonology Progress Note ---
Assessment/Plan Problems: (1) Atypical pneumonia (2) Hemoptysis (3) Anxiety and depression (4) CAD (coronary artery disease) (5) Stented coronary artery Assessment/Plan CT reviewed, no nodular density or cavitary lesion. Will DC isolation cardio and ID note reviewed hemodynamically stable symptomatic treatment dvt prophylaxis. continue Tamiflu, looks like Flu cxr from today showed complete resolution of the previous airspace infiltrate. Subjective Interval Events: doing better Allergies: Coded Allergies: MORPHINE (Verified Adverse Reaction, Severe, 08/21/13) headache PENICILLINS (Verified Adverse Reaction, Severe, 05/21/19) vaginal yeast Objective Last 24 Hour Vital Signs Date Time Temp Pulse Resp B/P (MAP) Pulse Ox O2 Delivery O2 Flow Rate FiO2 05/23/19 12:00 2.0 05/23/19 12:00 97.6 77 18 149/90 (109) 97 05/23/19 09:00 Nasal Cannula 2.0 05/23/19 08:52 82 140/82 05/23/19 08:00 2.0 05/23/19 08:00 80 05/23/19 08:00 97.9 82 18 140/82 (101) 96 05/23/19 07:10 98 Room Air 05/23/19 04:00 98.0 82 18 151/87 (108) 100 05/23/19 04:00 65 05/23/19 04:00 2.0 05/23/19 00:00 98.0 90 16 150/94 (112) 98 05/23/19 00:00 2.0 05/23/19 00:00 82 05/22/19 21:00 Nasal Cannula 2.0 05/22/19 20:11 97 Room Air 21 05/22/19 20:00 98.2 92 16 154/91 (112) 97 05/22/19 20:00 91 05/22/19 20:00 2.0 05/22/19 16:00 94 05/22/19 16:00 97.9 77 18 140/73 (95) 100 05/22/19 16:00 2.0 Intake and Output 05/22/19 05/23/19 19:00 07:00 Intake Total 490 ml Balance 490 ml Intake Oral 490 ml # Voids 2 2 # Bowel Movements 2 General Appearance: WD/WN HEENT: normocephalic, atraumatic Respiratory/Chest: chest wall non-tender, lungs clear Cardiovascular: normal peripheral pulses Abdomen: normal bowel sounds, soft, non tender Extremities: no cyanosis Neurologic/Psychiatric: clinical informaticist II-XII grossly normal Musculoskeletal: no effusion Microbiology Date/Time Source Procedure Growth Status 05/21/19 04:55 Blood Blood Culture - Preliminary NO GROWTH AFTER 24 HOURS Resulted 05/21/19 04:40 Blood Blood Culture - Preliminary NO GROWTH AFTER 24 HOURS Resulted 05/22/19 23:10 Nasal Nares - Final Complete 05/22/19 23:10 Nasal Nares - Final Complete 05/21/19 14:51 Sputum Gram Stain - Final Complete 05/21/19 14:51 Sputum Sputum Culture - Final NORMAL UPPER RESPIRATORY EM PRESENT Complete Laboratory Tests 05/23/19 08:05: White Blood Count 18.6H, Red Blood Count 4.92, Hemoglobin 15.6, Hematocrit 44.4 , Mean Corpuscular Volume 90, Mean Corpuscular Hemoglobin 31.7H, Mean Corpuscular Hemoglobin Concent 35.2, Red Cell Distribution Width 12.6, Platelet Count 315, Mean Platelet Volume 8.7, Neutrophils (%) (Auto) , Lymphocytes (%) ( Auto) , Monocytes (%) (Auto) , Eosinophils (%) (Auto) , Basophils (%) (Auto) , Differential Total Cells Counted 100, Neutrophils % (Manual) 87H, Lymphocytes % (Manual) 5L, Monocytes % (Manual) 2, Eosinophils % (Manual) 0, Basophils % ( Manual) 0, Band Neutrophils 6, Platelet Estimate Adequate, Platelet Morphology Normal, Red Blood Cell Morphology Normal, Sodium Level 139, Potassium Level 4.0 , Chloride Level 104, Carbon Dioxide Level 25, Anion Gap 10, Blood Urea Nitrogen 18, Creatinine 1.0, Estimat Glomerular Filtration Rate > 60, Glucose Level 186H, Calcium Level 8.6, Total Bilirubin 0.4, Aspartate Amino Transf (AST/ SGOT) 23, Alanine Aminotransferase (ALT/SGPT) 48, Alkaline Phosphatase 81, Pro-B -Type Natriuretic Peptide 1639H, Total Protein 7.0, Albumin 3.0L, Globulin 4.0, Albumin/Globulin Ratio 0.8L Current Medications Medications (Trade) Dose Ordered Sig/Xena Route PRN Reason Start Time Stop Time Status Last Admin Dose Admin Acetaminophen (Tylenol) 650 mg Q6H PRN ORAL Mild Pain/Temp > 100.5 05/23/19 18:00 06/20/19 17:59 Albuterol/ Ipratropium (Albuterol/ Ipratropium) 3 ml Q4H PRN HHN dyspnea 05/23/19 15:00 05/28/19 14:59 Alprazolam (Xanax) 0.25 mg TIDPRN PRN ORAL For Anxiety 05/23/19 15:00 05/30/19 14:59 Aspirin (Ecotrin) 81 mg DAILY ORAL 05/24/19 09:00 06/22/19 08:59 Atorvastatin Calcium (Lipitor) 20 mg BEDTIME ORAL 05/23/19 21:00 06/21/19 20:59 Ceftriaxone Sodium 1 gm/ Dextrose 55 ml @ 110 mls/hr Q24H IVPB 05/24/19 14:00 05/28/19 13:59 Dextrose (Dextrose 50%) 25 ml Q30M PRN IV Hypoglycemia 05/23/19 14:15 06/20/19 11:14 Dextrose (Dextrose 50%) 50 ml Q30M PRN IV Hypoglycemia 05/23/19 14:15 06/20/19 11:14 Heparin Sodium (Porcine) (Heparin 5000 units/ml) 5,000 units EVERY 12 HOURS SUBQ 05/23/19 21:00 06/20/19 20:59 Lidocaine (Xylocaine 1% MPF 5ml) 10 ml Q4H PRN HHN cough 05/23/19 15:00 06/22/19 14:59 Methylprednisolone Sodium Succinate (Solu-MEDROL) 60 mg EVERY 6 HOURS IV 05/23/19 18:00 06/20/19 11:59 Metoprolol Succinate (Toprol XL) 25 mg DAILY ORAL 05/24/19 09:00 06/22/19 08:59 Nitroglycerin (Ntg) 0.4 mg Q5M X 3 DOSES PRN SL Prn Chest Pain 05/23/19 14:15 06/20/19 11:14 Ondansetron HCl (Zofran) 4 mg Q6H PRN IVP Nausea & Vomiting 05/23/19 15:00 06/20/19 14:59 Oseltamivir Phosphate (Tamiflu) 75 mg TWICE A DAY ORAL 05/23/19 18:00 05/26/19 13:14 Promethazine HCl/ Codeine (Phenergan with Codeine) 5 ml Q6H PRN ORAL cough 05/23/19 15:00 06/20/19 14:59 Temazepam (Restoril) 15 mg HSPRN PRN ORAL Insomnia 05/23/19 18:00 05/30/19 17:59 Theophylline (Edson-Dur) 100 mg EVERY 12 HOURS ORAL 05/23/19 21:00 06/20/19 20:59 Ragini Napier MD May 23, 2019 15:59
[2019-05-23 16:00] VITALS: BP 136/82
--- NOTE | 2019-05-23 16:21 | Cardiology Progress Note ---
Assessment/Plan Problem List: (1) Atypical pneumonia (2) CAD (coronary artery disease) (3) Hemoptysis Status: stable, progressing Status Narrative Ms. Schuster remains stable from a cardiac standpoint. BPs are elevated - ? due to steroids Her respiratory symptoms are improving. Assessment/Plan Increase metoprolol to 50 mg /d for better BP control. Continue asa, statin for CAD DC plan per primary team Subjective ROS Limited/Unobtainable: No Subjective Cardiology for Dr. Arriaga Pt reports that cough, dyspnea have improved. She feels fatigued. Objective Last 24 Hour Vital Signs Date Time Temp Pulse Resp B/P (MAP) Pulse Ox O2 Delivery O2 Flow Rate FiO2 05/23/19 16:00 2.0 05/23/19 16:00 97.4 78 18 136/82 (100) 96 05/23/19 12:00 2.0 05/23/19 12:00 97.6 77 18 149/90 (109) 97 05/23/19 09:00 Nasal Cannula 2.0 05/23/19 08:52 82 140/82 05/23/19 08:00 2.0 05/23/19 08:00 80 05/23/19 08:00 97.9 82 18 140/82 (101) 96 05/23/19 07:10 98 Room Air 05/23/19 04:00 98.0 82 18 151/87 (108) 100 05/23/19 04:00 65 05/23/19 04:00 2.0 05/23/19 00:00 98.0 90 16 150/94 (112) 98 05/23/19 00:00 2.0 05/23/19 00:00 82 05/22/19 21:00 Nasal Cannula 2.0 05/22/19 20:11 97 Room Air 21 05/22/19 20:00 98.2 92 16 154/91 (112) 97 05/22/19 20:00 91 05/22/19 20:00 2.0 General Appearance: WD/WN, no apparent distress, alert EENT: PERRL/EOMI Neck: supple, no JVD Rhythm: NSR Cardiovascular: normal rate, regular rhythm, no gallop/murmur Respiratory/Chest: lungs clear Abdomen: normal bowel sounds, non tender, soft Extremities: non-tender, no swelling Neurologic: no motor/sensory deficits, alert, oriented x 3 Intake and Output 05/22/19 05/23/19 19:00 07:00 Intake Total 490 ml Balance 490 ml Intake Oral 490 ml # Voids 2 2 # Bowel Movements 2 Laboratory Tests Test 05/23/19 08:05 White Blood Count 18.6 K/UL (4.8-10.8) H Red Blood Count 4.92 M/UL (4.20-5.40) Hemoglobin 15.6 G/DL (12.0-16.0) Hematocrit 44.4 % (37.0-47.0) Mean Corpuscular Volume 90 FL (80-99) Mean Corpuscular Hemoglobin 31.7 PG (27.0-31.0) H Mean Corpuscular Hemoglobin Concent 35.2 G/DL (32.0-36.0) Red Cell Distribution Width 12.6 % (11.6-14.8) Platelet Count 315 K/UL (150-450) Mean Platelet Volume 8.7 FL (6.5-10.1) Neutrophils (%) (Auto) % (45.0-75.0) Lymphocytes (%) (Auto) % (20.0-45.0) Monocytes (%) (Auto) % (1.0-10.0) Eosinophils (%) (Auto) % (0.0-3.0) Basophils (%) (Auto) % (0.0-2.0) Differential Total Cells Counted 100 Neutrophils % (Manual) 87 % (45-75) H Lymphocytes % (Manual) 5 % (20-45) L Monocytes % (Manual) 2 % (1-10) Eosinophils % (Manual) 0 % (0-3) Basophils % (Manual) 0 % (0-2) Band Neutrophils 6 % (0-8) Platelet Estimate Adequate Platelet Morphology Normal Red Blood Cell Morphology Normal Sodium Level 139 MMOL/L (136-145) Potassium Level 4.0 MMOL/L (3.5-5.1) Chloride Level 104 MMOL/L (98-107) Carbon Dioxide Level 25 MMOL/L (21-32) Anion Gap 10 mmol/L (5-15) Blood Urea Nitrogen 18 mg/dL (7-18) Creatinine 1.0 MG/DL (0.55-1.30) Estimat Glomerular Filtration Rate > 60 mL/min (>60) Glucose Level 186 MG/DL (74-106) H Calcium Level 8.6 MG/DL (8.5-10.1) Total Bilirubin 0.4 MG/DL (0.2-1.0) Aspartate Amino Transf (AST/SGOT) 23 U/L (15-37) Alanine Aminotransferase (ALT/SGPT) 48 U/L (12-78) Alkaline Phosphatase 81 U/L (46-116) Pro-B-Type Natriuretic Peptide 1639 pg/mL (0-125) H Total Protein 7.0 G/DL (6.4-8.2) Albumin 3.0 G/DL (3.4-5.0) L Globulin 4.0 g/dL Albumin/Globulin Ratio 0.8 (1.0-2.7) L Microbiology Date/Time Source Procedure Growth Status 05/21/19 04:55 Blood Blood Culture - Preliminary NO GROWTH AFTER 24 HOURS Resulted 05/21/19 04:40 Blood Blood Culture - Preliminary NO GROWTH AFTER 24 HOURS Resulted 05/22/19 23:10 Nasal Nares - Final Complete 05/22/19 23:10 Nasal Nares - Final Complete 05/21/19 14:51 Sputum Gram Stain - Final Complete 05/21/19 14:51 Sputum Sputum Culture - Final NORMAL UPPER RESPIRATORY EM PRESENT Complete Bhavya Oquendo MD May 23, 2019 16:21
--- NOTE | 2019-05-23 19:24 | NUR ---
HAND-OFF: Report given to
--- NOTE | 2019-05-23 19:45 | NUR ---
NURSE NOTES: Received patient in bed. A/O x4. Sitting in high-fowlers. Patient denies pain at this time. On room air, respiration s even and unlabored. 1/2 side rails up, bed at the lowest position.
[2019-05-23 20:00] VITALS: BP 148/90
--- NOTE | 2019-05-23 20:08 | NUR ---
NURSE NOTES: Patient refused solu-medrol IV. RN re-educated on medication but patient refused x3. RN explained the risks and benefits.
[2019-05-23] MEDS ORDERED: Atorvastatin 20mg tab ORAL SCH (21:00)
[2019-05-24] VITALS: BP 150/92
[2019-05-24] MEDS: Solu-MEDROL 125mg Inj IV SCH ×2 (00:51→05:49)
[2019-05-24 04:00] VITALS: BP 154/97
--- NOTE | 2019-05-24 07:20 | NUR ---
NURSE NOTES: Handoff received from NALLELY Veronica. Patient received awake and alert and resting in bed, no acute signs of distress noted, no complaints of pain at this time. Patient has IV site clean dry and intact, saline locked. Patient is alert and oriented and able to make need known, bed in the low and locked position with call light within reach. Will continue to monitor patient.
--- NOTE | 2019-05-24 07:26 | NUR ---
HAND-OFF: Report given to Dipak BROWNING.
[2019-05-24 08:00] VITALS: BP 126/103
[2019-05-24] MEDS ORDERED: Metoprolol Succinate XL 50mg tab ORAL SCH (09:00)
[2019-05-24] MEDS ORDERED: Aspirin EC 81mg tab ORAL SCH (09:00)
[2019-05-24] MEDS ORDERED: Metoprolol Succinate XL 25mg tab ORAL SCH (09:00)
[2019-05-24] MEDS: Theophylline ER 100mg ORAL SCH (09:45)
[2019-05-24] MEDS: Oseltamivir 75mg cap ORAL SCH (09:46)
[2019-05-24] MEDS: Heparin 5000 units/ml inj SUBQ SCH (09:49)
--- NOTE | 2019-05-24 11:45 | Infectious Diseases Prog Note ---
Assessment/Plan Assessment/Plan Assessment/Plan: Assessment: Pneumonia-; suspect iNfluenza despiste negative screen test- blood tinge sputum - doubt TB due to acuity of symptoms (1 day), absence of risk factors. Reviewed CT chest- no cavitary or nodular lesions -05/23 CXR: Interval resolution of previously seen bilateral airspace opacities. -CT chest Bilateral diffuse groundglass opacities. May in part be artifactual , but could indicate diffuse pulmonary edema, particularly given findings on prior study. No focal dense consolidation. No evidence of pulmonary mass -CXR: Bilateral diffuse interstitial and airspace infiltrates versus edema -influenza sc neg -sp cx normal heike (prelim) Afebrile Leukocytosis (on high dose steroids) CAD/NV s/p stents x2 2009 HTN former drug abuser former smoker Plan: -Continue empiric Ceftriaxone, Tamiflu #4/5 -upon discharge, can be transitioned to Cefdinir 300mg PO bid and tamiflu 75mg PO Bid for 1 more day -f/u cx -Monitor CBC/CMP, temperatures -f/u sp cx -aspiration precautions Thank you for this consultation. Will continue to follow along with you. Subjective Allergies: Coded Allergies: MORPHINE (Verified Adverse Reaction, Severe, 08/21/13) headache PENICILLINS (Verified Adverse Reaction, Severe, 05/21/19) vaginal yeast Subjective afebrile at 2l NC Objective Vital Signs Last 24 Hour Vital Signs Date Time Temp Pulse Resp B/P (MAP) Pulse Ox O2 Delivery O2 Flow Rate FiO2 05/24/19 09:45 71 126/103 05/24/19 09:00 Nasal Cannula 2.0 05/24/19 08:00 2.0 05/24/19 08:00 97.2 71 20 126/103 (111) 97 05/24/19 07:06 96 Room Air 21 05/24/19 04:00 97.8 86 20 154/97 (116) 98 05/24/19 04:00 2.0 05/24/19 00:00 97.5 78 19 150/92 (111) 97 05/24/19 00:00 2.0 05/23/19 21:00 Nasal Cannula 2.0 05/23/19 20:00 98.0 73 19 148/90 (109) 98 05/23/19 19:47 96 Room Air 21 05/23/19 16:00 2.0 05/23/19 16:00 97.4 78 18 136/82 (100) 96 05/23/19 12:00 2.0 05/23/19 12:00 97.6 77 18 149/90 (109) 97 Height (Feet): 5 Height (Inches): 10.00 Weight (Pounds): 234 Microbiology Date/Time Source Procedure Growth Status 05/22/19 23:10 Nasal Nares - Final Complete 05/22/19 23:10 Nasal Nares - Final Complete 05/21/19 14:51 Sputum Gram Stain - Final Complete 05/21/19 14:51 Sputum Sputum Culture - Final NORMAL UPPER RESPIRATORY HEIKE PRESENT Complete Current Medications Medications (Trade) Dose Ordered Sig/Xena Route PRN Reason Start Time Stop Time Status Last Admin Dose Admin Acetaminophen (Tylenol) 650 mg Q6H PRN ORAL Mild Pain/Temp > 100.5 05/23/19 18:00 06/20/19 17:59 Albuterol/ Ipratropium (Albuterol/ Ipratropium) 3 ml Q4H PRN HHN dyspnea 05/23/19 15:00 05/28/19 14:59 Alprazolam (Xanax) 0.25 mg TIDPRN PRN ORAL For Anxiety 05/23/19 15:00 05/30/19 14:59 05/24/19 01:15 Aspirin (Ecotrin) 81 mg DAILY ORAL 05/24/19 09:00 06/22/19 08:59 05/24/19 09:45 Atorvastatin Calcium (Lipitor) 20 mg BEDTIME ORAL 05/23/19 21:00 06/21/19 20:59 05/23/19 20:32 Ceftriaxone Sodium 1 gm/ Dextrose 55 ml @ 110 mls/hr Q24H IVPB 05/24/19 14:00 05/28/19 13:59 Dextrose (Dextrose 50%) 25 ml Q30M PRN IV Hypoglycemia 05/23/19 14:15 06/20/19 11:14 Dextrose (Dextrose 50%) 50 ml Q30M PRN IV Hypoglycemia 05/23/19 14:15 06/20/19 11:14 Heparin Sodium (Porcine) (Heparin 5000 units/ml) 5,000 units EVERY 12 HOURS SUBQ 05/23/19 21:00 06/20/19 20:59 05/24/19 09:49 Lidocaine (Xylocaine 1% MPF 5ml) 10 ml Q4H PRN HHN cough 05/23/19 15:00 06/22/19 14:59 Methylprednisolone Sodium Succinate (Solu-MEDROL) 60 mg EVERY 6 HOURS IV 05/23/19 18:00 06/20/19 11:59 05/24/19 05:49 Metoprolol Succinate (Toprol XL) 50 mg DAILY ORAL 05/24/19 09:00 06/22/19 08:59 05/24/19 09:45 Nitroglycerin (Ntg) 0.4 mg Q5M X 3 DOSES PRN SL Prn Chest Pain 05/23/19 14:15 06/20/19 11:14 Ondansetron HCl (Zofran) 4 mg Q6H PRN IVP Nausea & Vomiting 05/23/19 15:00 06/20/19 14:59 Oseltamivir Phosphate (Tamiflu) 75 mg TWICE A DAY ORAL 05/23/19 18:00 05/26/19 13:14 05/24/19 09:46 Promethazine HCl/ Codeine (Phenergan with Codeine) 5 ml Q6H PRN ORAL cough 05/23/19 15:00 06/20/19 14:59 Temazepam (Restoril) 15 mg HSPRN PRN ORAL Insomnia 05/23/19 18:00 05/30/19 17:59 05/23/19 20:36 Theophylline (Edson-Dur) 100 mg EVERY 12 HOURS ORAL 05/23/19 21:00 06/20/19 20:59 05/24/19 09:45 Elinor Rich M.D. May 24, 2019 11:45
[2019-05-24 12:00] VITALS: BP 150/88
--- NOTE | 2019-05-24 12:12 | NUR ---
NURSE NOTES: Called Dr Patel as patient stated that the Dr told her she is being discharged today, however there is no discharge order placed yet.
[2019-05-24] MEDS ORDERED: TAMIFLU75 MG ORAL (12:23)
[2019-05-24] MEDS ORDERED: CEFDINIR300 MG PO (12:23)
--- NOTE | 2019-05-24 12:25 | Pulmonology Progress Note ---
Assessment/Plan Problems: (1) Atypical pneumonia (2) Hemoptysis (3) Anxiety and depression (4) CAD (coronary artery disease) (5) Stented coronary artery Assessment/Plan CT reviewed, no nodular density or cavitary lesion. Will DC isolation cardio and ID note reviewed hemodynamically stable symptomatic treatment dvt prophylaxis. continue Tamiflu, looks like Flu cxr from yesterday showed complete resolution of the previous airspace infiltrate. ID suggested Cefdinir and Tamiflu Subjective ROS Limited/Unobtainable: No Constitutional: Reports: no symptoms HEENT: Repors: no symptoms Respiratory: Reports: no symptoms Allergies: Coded Allergies: MORPHINE (Verified Adverse Reaction, Severe, 08/21/13) headache PENICILLINS (Verified Adverse Reaction, Severe, 05/21/19) vaginal yeast Objective Last 24 Hour Vital Signs Date Time Temp Pulse Resp B/P (MAP) Pulse Ox O2 Delivery O2 Flow Rate FiO2 05/24/19 09:45 71 126/103 05/24/19 09:00 Nasal Cannula 2.0 05/24/19 08:00 2.0 05/24/19 08:00 97.2 71 20 126/103 (111) 97 05/24/19 07:06 96 Room Air 21 05/24/19 04:00 97.8 86 20 154/97 (116) 98 05/24/19 04:00 2.0 05/24/19 00:00 97.5 78 19 150/92 (111) 97 05/24/19 00:00 2.0 05/23/19 21:00 Nasal Cannula 2.0 05/23/19 20:00 98.0 73 19 148/90 (109) 98 05/23/19 19:47 96 Room Air 21 05/23/19 16:00 2.0 05/23/19 16:00 97.4 78 18 136/82 (100) 96 Intake and Output 05/23/19 05/24/19 19:00 07:00 Intake Total 765 ml 100 ml Balance 765 ml 100 ml Intake Oral 710 ml 100 ml IV Total 55 ml # Voids 3 1 General Appearance: WD/WN HEENT: normocephalic, atraumatic Respiratory/Chest: chest wall non-tender, lungs clear Breasts: no masses Cardiovascular: normal peripheral pulses, normal rate Abdomen: normal bowel sounds, soft, non tender Genitourinary: normal external genitalia Extremities: no cyanosis Neurologic/Psychiatric: human resources trainee II-XII grossly normal Lymphatic: no groin adenopathy Musculoskeletal: normal muscle bulk Microbiology Date/Time Source Procedure Growth Status 05/22/19 23:10 Nasal Nares - Final Complete 05/22/19 23:10 Nasal Nares - Final Complete 05/21/19 14:51 Sputum Gram Stain - Final Complete 05/21/19 14:51 Sputum Sputum Culture - Final NORMAL UPPER RESPIRATORY EM PRESENT Complete Current Medications Medications (Trade) Dose Ordered Sig/Xena Route PRN Reason Start Time Stop Time Status Last Admin Dose Admin Acetaminophen (Tylenol) 650 mg Q6H PRN ORAL Mild Pain/Temp > 100.5 05/23/19 18:00 06/20/19 17:59 Albuterol/ Ipratropium (Albuterol/ Ipratropium) 3 ml Q4H PRN HHN dyspnea 05/23/19 15:00 05/28/19 14:59 Alprazolam (Xanax) 0.25 mg TIDPRN PRN ORAL For Anxiety 05/23/19 15:00 05/30/19 14:59 05/24/19 01:15 Aspirin (Ecotrin) 81 mg DAILY ORAL 05/24/19 09:00 06/22/19 08:59 05/24/19 09:45 Atorvastatin Calcium (Lipitor) 20 mg BEDTIME ORAL 05/23/19 21:00 06/21/19 20:59 05/23/19 20:32 Ceftriaxone Sodium 1 gm/ Dextrose 55 ml @ 110 mls/hr Q24H IVPB 05/24/19 14:00 05/28/19 13:59 Dextrose (Dextrose 50%) 25 ml Q30M PRN IV Hypoglycemia 05/23/19 14:15 06/20/19 11:14 Dextrose (Dextrose 50%) 50 ml Q30M PRN IV Hypoglycemia 05/23/19 14:15 06/20/19 11:14 Heparin Sodium (Porcine) (Heparin 5000 units/ml) 5,000 units EVERY 12 HOURS SUBQ 05/23/19 21:00 06/20/19 20:59 05/24/19 09:49 Lidocaine (Xylocaine 1% MPF 5ml) 10 ml Q4H PRN HHN cough 05/23/19 15:00 06/22/19 14:59 Methylprednisolone Sodium Succinate (Solu-MEDROL) 60 mg EVERY 6 HOURS IV 05/23/19 18:00 06/20/19 11:59 05/24/19 05:49 Metoprolol Succinate (Toprol XL) 50 mg DAILY ORAL 05/24/19 09:00 06/22/19 08:59 05/24/19 09:45 Nitroglycerin (Ntg) 0.4 mg Q5M X 3 DOSES PRN SL Prn Chest Pain 05/23/19 14:15 06/20/19 11:14 Ondansetron HCl (Zofran) 4 mg Q6H PRN IVP Nausea & Vomiting 05/23/19 15:00 06/20/19 14:59 Oseltamivir Phosphate (Tamiflu) 75 mg TWICE A DAY ORAL 05/23/19 18:00 05/26/19 13:14 05/24/19 09:46 Promethazine HCl/ Codeine (Phenergan with Codeine) 5 ml Q6H PRN ORAL cough 05/23/19 15:00 06/20/19 14:59 Temazepam (Restoril) 15 mg HSPRN PRN ORAL Insomnia 05/23/19 18:00 05/30/19 17:59 05/23/19 20:36 Theophylline (Edson-Dur) 100 mg EVERY 12 HOURS ORAL 05/23/19 21:00 06/20/19 20:59 05/24/19 09:45 Ragini Napier MD May 24, 2019 12:25
[2019-05-24] MEDS ORDERED: cefTRIAXone 1 GM in D5W 55 ML IVPB SCH (14:00)
--- NOTE | 2019-05-24 14:06 | NUR ---
CHARGE NURSE NOTE: Pt will be discharged today. She needs a Xanax prescription. Spoke with , he wants pt to come to his hospital tomorrow morning and he will give her prescription.
--- NOTE | 2019-05-24 14:23 | Internal Med Progress Note ---
Subjective Date of Service: May 24, 2019 Physician Name Sebas Perez Attending Physician Delfino Calderon MD Current Medications Medications (Trade) Dose Ordered Sig/Xena Route PRN Reason Start Time Stop Time Status Last Admin Dose Admin Acetaminophen (Tylenol) 650 mg Q6H PRN ORAL Mild Pain/Temp > 100.5 05/23/19 18:00 06/20/19 17:59 Albuterol/ Ipratropium (Albuterol/ Ipratropium) 3 ml Q4H PRN HHN dyspnea 05/23/19 15:00 05/28/19 14:59 Alprazolam (Xanax) 0.25 mg TIDPRN PRN ORAL For Anxiety 05/23/19 15:00 05/30/19 14:59 05/24/19 01:15 Aspirin (Ecotrin) 81 mg DAILY ORAL 05/24/19 09:00 06/22/19 08:59 05/24/19 09:45 Atorvastatin Calcium (Lipitor) 20 mg BEDTIME ORAL 05/23/19 21:00 06/21/19 20:59 05/23/19 20:32 Ceftriaxone Sodium 1 gm/ Dextrose 55 ml @ 110 mls/hr Q24H IVPB 05/24/19 14:00 05/28/19 13:59 Dextrose (Dextrose 50%) 25 ml Q30M PRN IV Hypoglycemia 05/23/19 14:15 06/20/19 11:14 Dextrose (Dextrose 50%) 50 ml Q30M PRN IV Hypoglycemia 05/23/19 14:15 06/20/19 11:14 Heparin Sodium (Porcine) (Heparin 5000 units/ml) 5,000 units EVERY 12 HOURS SUBQ 05/23/19 21:00 06/20/19 20:59 05/24/19 09:49 Lidocaine (Xylocaine 1% MPF 5ml) 10 ml Q4H PRN HHN cough 05/23/19 15:00 06/22/19 14:59 Metoprolol Succinate (Toprol XL) 50 mg DAILY ORAL 05/24/19 09:00 06/22/19 08:59 05/24/19 09:45 Nitroglycerin (Ntg) 0.4 mg Q5M X 3 DOSES PRN SL Prn Chest Pain 05/23/19 14:15 06/20/19 11:14 Ondansetron HCl (Zofran) 4 mg Q6H PRN IVP Nausea & Vomiting 05/23/19 15:00 06/20/19 14:59 Oseltamivir Phosphate (Tamiflu) 75 mg TWICE A DAY ORAL 05/23/19 18:00 05/26/19 13:14 05/24/19 09:46 Promethazine HCl/ Codeine (Phenergan with Codeine) 5 ml Q6H PRN ORAL cough 05/23/19 15:00 06/20/19 14:59 Temazepam (Restoril) 15 mg HSPRN PRN ORAL Insomnia 05/23/19 18:00 05/30/19 17:59 05/23/19 20:36 Theophylline (Edson-Dur) 100 mg EVERY 12 HOURS ORAL 05/23/19 21:00 06/20/19 20:59 05/24/19 09:45 Allergies: Coded Allergies: MORPHINE (Verified Adverse Reaction, Severe, 08/21/13) headache PENICILLINS (Verified Adverse Reaction, Severe, 05/21/19) vaginal yeast ROS Limited/Unobtainable: No Constitutional: Reports: no symptoms HEENT: Reports: no symptoms Cardiovascular: Reports: no symptoms Respiratory: Reports: cough, shortness of breath Gastrointestinal/Abdominal: Reports: no symptoms Genitourinary: Reports: no symptoms Neurologic/Psychiatric: Reports: no symptoms Subjective 49 YO F admitted with cough and hemoptysis. Cover for [facility] Jeo-Dr Calderon Objective Last Vital Signs Date Time Temp Pulse Resp B/P (MAP) Pulse Ox O2 Delivery O2 Flow Rate FiO2 05/24/19 12:00 2.0 05/24/19 12:00 98.1 79 20 150/88 (108) 99 05/24/19 09:00 Nasal Cannula 05/24/19 07:06 21 Microbiology Date/Time Source Procedure Growth Status 05/22/19 23:10 Nasal Nares - Final Complete 05/22/19 23:10 Nasal Nares - Final Complete 05/21/19 14:51 Sputum Gram Stain - Final Complete 05/21/19 14:51 Sputum Sputum Culture - Final NORMAL UPPER RESPIRATORY EM PRESENT Complete Intake and Output 05/23/19 05/24/19 19:00 07:00 Intake Total 765 ml 100 ml Balance 765 ml 100 ml Intake Oral 710 ml 100 ml IV Total 55 ml # Voids 3 1 Objective PHYSICAL EXAMINATION: GENERAL: The patient is awake and responsive, in no acute distress. HEAD AND NECK: Pupils are equal and reactive to light. Extraocular movements intact. NECK: Supple. No JVD. LUNGS: Good air entry. No wheezing or rales. Decreased air in bases. HEART: S1 and S2. Distant heart sounds. No murmurs or gallops. ABDOMEN: Soft, nondistended, and nontender. Morbidly obese. EXTREMITIES: No cyanosis, clubbing, or edema. NEUROLOGIC: Cranial nerves II through XII grossly intact. Motor strength 5/5 in all extremities. Gait is intact. RECTAL/GENITOURINARY: Refused and deferred. PSYCHIATRIC: Mood and affect is intact. Assessment/Plan Assessment/Plan ASSESSMENT: 1. Shortness of breath due to pneumonia 2. Productive hemoptysis, possible TB versus pneumonia. 3. Coronary artery disease with prior history of myocardial infarction, status post PTCA with stent placement x2. 4. Hypertension. 5. Morbid obesity. 6. Ex-smoker. PLAN: 1. Admit the patient to monitored unit. 2. Dr. Rene Arriaga = Cardiology Dr. Napier = Pulmonary Critical Care Dr. Rich = Infectious Disease. 3. antibiotic = Rocephin 4. Solu-Medrol 60 mg IV q.6 h. 5. Follow up with cultures and PPD placement. D/C respiratory isolation per ID. 6. Code status, Full code. 7. DVT prophylaxis with heparin subcutaneous. Sebas Perez MD May 24, 2019 14:23
--- NOTE | 2019-05-24 14:39 | NUR ---
NURSE NOTES: Patient discharged and left alert and oriented, stable with no acute signs of distress. Patient is driving herself home. Attempted to call Daughter to notify her of patient discharge but did not get a response. Informed patient to follow up with primary care physician, also gave patient phone number and address fro Dr Calderon to follow up regarding patient prescription for Xanex, BP medication and aspirin .- dairy cattle farmer spoke to Dr who advised Patient prescription will be ready tomorrow. Printed out instructions for the new meds prescribed by Dr Rich, antibiotic and tamiflu. Told patient when to seek immediate treatment for adverse reactions to medication. also advised patient to eat a low fat low sodium diet. IV removed, no bleeding or hematoma noted. Patient signed the belongings list and left ambulating.
--- NOTE | 2019-05-25 08:58 | Discharge Summary ---
Discharge Summary Discharge Summary _ DATE OF ADMISSION: 05/21/2019 DATE OF DISCHARGE:05/24/2019 DISCHARGED BY: Dr. Calderon REASON FOR ADMISSION: 49 years old female with past medical history of coronary artery disease, history of DC, status post stent placement times x 2 in 2008, hypertension, COPD, ex-smoker, former drug abuser, anxiety, presented to emergency department complaining of cough and chest congestion . Patient reported productive cough with streaks of blood phlegm . Patient reported sick contacts with the people who had the flu. She denied chest pain. She denied nausea and vomiting. Shortly after initial evaluation , patient was admitted for further evaluation and management. Blood pressure was elevated 164/83, and patient was significantly tachypneic. Patient started on supplemental oxygen , received Nitropaste and bronchodilator treatment . Urine toxicology screen was positive for marijuana and benzodiazepine . Troponin was negative. ECG revealed sinus rhythm no acute ischemic changes. Chest x-ray revealed bilateral diffuse interstitial and airspace infiltrates versus edema Patient subsequently was admitted for further management. CONSULTANTS: java sdet Dr. Arriaga pulmonary Dr. Napier ID specialist Dr. Rich [facility] COURSE: Patient admitted to monitored floor. Workers Compensation Paralegal, composite layup worker and ID specialist followed . Patient started on broad-spectrum antibiotics/ Ceftriaxone and empiric Tamiflu . Patient started on IV steroids with gradual tapering. Patient initially placed in respiratory isolation. Supplemental oxygen provided and titrated to keep pulse oximetry above 92%. Pulmonary toilet with bronchodilator and chest physiotherapy provided. Trial of theophylline initiated. Antitussive provided as needed. DVT prophylaxis provided. Blood cultures were negative. Sputum culture was negative . Influenza swab was negative. HIV test was nonreactive. PPD was unremarkable. Fungal serology negative for cryptococci antigen ; serology for Blastomyces and histoplasma still pending. Patient subsequently undergone CT of the chest, which revealed bilateral diffuse ground glass opacity; no focal dense consolidation , no evidence of pulmonary mass. Isolation was discontinued. Workers Compensation Paralegal followed. Antiplatelet therapy with aspirin and statin continued. Beta-andre resumed. Blood pressure remained stable. Steroids tapered. Patient clinically improved and was ready for discharge. Upon discharge patient was transitioned to cefdinir and Tamiflu for 1 additional day. FINAL DIAGNOSES: Atypical pneumonia Coronary artery disease with prior history of myocardial infarction, status post PTCA with stent placement x2 Hypertension Morbid obesity Ex-smoker Hemoptysis , likely due to pneumonia Anxiety and depression DISCHARGE MEDICATIONS: See Medication Reconciliation list. DISCHARGE INSTRUCTIONS: Patient was discharged home. Follow-up with a primary care provider in 1 week I have been assigned to dictate discharge summary for this account. I was not involved in the patient's management. Mallory Esquivel NP May 25, 2019 08:58
== END 2019-05-24 16:20 | disposition home or self-care (01) | DRG 194 ==
LOC: EMR 05:12 → EDBEDREQ 07:25 → 2E 07:36 → 4E 05-23 14:00
DX: J18.9 Pneumonia, unspecified organism (principal); R04.2 Hemoptysis; I25.10 Atherosclerotic heart disease of native coronary artery without angina pectoris; Z87.891 Personal history of nicotine dependence; Z95.5 Presence of coronary angioplasty implant and graft; I10 Essential (primary) hypertension; I25.2 Old myocardial infarction; Z79.82 Long term (current) use of aspirin; E66.01 Morbid (severe) obesity due to excess calories; J44.9 Chronic obstructive pulmonary disease, unspecified; F19.11 Other psychoactive substance abuse, in remission; F41.8 Other specified anxiety disorders; Z88.6 Allergy status to analgesic agent; Z68.33 Body mass index [BMI] 33.0-33.9, adult
CPT/HCPCS: 36415; 36600; 71045; 71260; 80053; 80307; 82378; 82803; 83605; 83615; 83690; 83880; 84484; 85007; 85025; 85610; 85730; 86171; 86580; 86612; 86703; 86710; 87040; 87070; 87205; 87449; 93005; 93306; 94640; 94664; 96365; 96367; 96375; 99291; J2405; J7620

== ENCOUNTER 2019-06-26 15:58 | Emergency (ER) | payer MEDICARE, OTHER ==
[~2019-06-26] VITALS: Ht 175.3 cm; Wt 105.2 kg
[~2019-06-26 15:58] MED LIST changes: +ASPIRIN81 MG ORAL; +CEFDINIR300 MG PO; +METOPROLOL SUCC25 MG ORAL
[2019-06-26 16:01] VITALS: BP 149/89
[2019-06-26] MEDS ORDERED: Solu-MEDROL 125mg Inj IVP ONE (16:15)
[2019-06-26] MEDS ORDERED: DiphenhydrAMINE 50mg/ml Inj IVP ONE (16:15)
[2019-06-26] MEDS ORDERED: Albuterol ud Inhalation HHN ONE ×2 (16:15→17:45)
[2019-06-26] MEDS ORDERED: Ipratropium 0.02% Inh Soln 2.5ml UD HHN ONE (16:15)
--- NOTE | 2019-06-26 16:25 | Emergency Room Report ---
History of Present Illness General Chief Complaint: General Complaint Source: Patient Present Illness HPI Patient presents with intermittent anxiety for couple weeks. This is associated with wheezing. She has orthopnea and increased wheezing. She was admitted to the hospital recently. She received breathing treatments. She is used an inhaler in the past. She is not using prednisone at the moment. She denies history of asthma or smoking or exposure to smoke. She denies fever chills or chest pain. When she gets wheezing like this she starts to feel short of breath and anxiety kicks in. It worsens through the night. She denies calf pain or edema. She feels perimenopausal at this time and her periods are irregular. She does not believe she is at this time. She denies nausea, vomiting or diarrhea. She was admitted to the hospital her wheezing and anxiety was worse. She believes she had a CT angiogram done and was not told that she had a blood clot. She has had some trace edema in her lower extremities. No calf tenderness. The patient has a history of stent that was replaced in 2008. CTA 10/2018: Impression: Negative for evidence of acute pulmonary embolus Diffuse interstitial septal thickening. Bibasilar ground glass opacities. These are nonspecific findings with a wide differential. However, presence of bilateral pleural fluid and hepatic venous reflux suggests central venous hypertension, which raises the possibility of pulmonary edema as etiology of these findings Mild ectasia of the pulmonary arteries, suggestive of but not diagnostic for pulmonary arterial hypertension Patient admitted May for dyspnea. Discharge diagnoses: Atypical pneumonia Coronary artery disease with prior history of myocardial infarction, status post PTCA with stent placement x2 Hypertension Morbid obesity Ex-smoker Hemoptysis , likely due to pneumonia Anxiety and depression Allergies: Coded Allergies: MORPHINE (Verified Adverse Reaction, Severe, 08/21/13) headache PENICILLINS (Verified Adverse Reaction, Severe, 05/21/19) vaginal yeast Patient History Past Medical History: see triage record, old chart reviewed Past Surgical History: PTCA Social History: Reports: drug use - Edible THC; Denies: smoking - Stopped after stent, alcohol use Social History Narrative and with children Last Menstrual Period: 05/24/19 Reviewed Nursing Documentation: PMH: Agreed; PSxH: Agreed Nursing Documentation-PMH Past Medical History: No History, Except For Hx Cardiac Problems: Yes - Mi-2008 Hx Hypertension: Yes Hx Pacemaker: No Hx Asthma: No Hx COPD: Yes Hx Diabetes: No Hx Cancer: No Hx Gastrointestinal Problems: No Hx Dialysis: No Hx Neurological Problems: No Hx Cerebrovascular Accident: No Hx Seizures: No Review of Systems All Other Systems: negative except mentioned in HPI Physical Exam Vital Signs Date Time Temp Pulse Resp B/P (MAP) Pulse Ox O2 Delivery O2 Flow Rate FiO2 06/26/19 16:01 97.7 61 18 149/89 (109) 96 Room Air Sp02 EP Interpretation: reviewed, normal General Appearance: well appearing, no apparent distress, GCS 15, non-toxic Head: normocephalic Eyes: bilateral eye normal inspection, bilateral eye PERRL, bilateral eye EOMI ENT: moist mucus membranes Neck: supple Respiratory: wheezing, expiration, other - Recurrent coughing Cardiovascular #1: regular rate, rhythm, edema - Trace bilaterally Cardiovascular #2: 2+ radial (R) Gastrointestinal: normal inspection, normal bowel sounds, non tender, no mass, non-distended Musculoskeletal: back normal, normal range of motion, gait/station normal Neurologic: alert, oriented x3 Medical Decision Making Diagnostic Impression: Primary Impression: Bronchospasm Additional Impressions: Pulmonary hypertension Anxiety ER Course Patient presents with wheezing and anxiety. Differential includes acute myocardial infarction, bronchitis, asthma exacerbation, allergic reaction, anxiety, pulmonary hypertension, CHF, pulmonary embolus amongst others. Evaluation with EKG, chest x-ray and labs. Patient treated with IV hydration, Solu-Medrol, breathing treatments and Benadryl. History and exam makes pulmonary embolus less likely. The patient has significant comorbidities and her presentation is complex. 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 EKG without injury. Chest x-ray with increased lujan bilaterally. Labs with normal white count without eosinophilia. Troponin negative. BNP slightly elevated. Tox positive for THC. Patient improved with treatment. Discussed findings with patient and treatment plan. Given copies of EKG, chest x-ray, prior CT and labs. Patient stable for outpatient observation and treatment. Laboratory Tests Test 06/26/19 16:40 06/26/19 17:27 White Blood Count 5.2 K/UL (4.8-10.8) Red Blood Count 4.84 M/UL (4.20-5.40) Hemoglobin 15.0 G/DL (12.0-16.0) Hematocrit 43.0 % (37.0-47.0) Mean Corpuscular Volume 89 FL (80-99) Mean Corpuscular Hemoglobin 31.0 PG (27.0-31.0) Mean Corpuscular Hemoglobin Concent 35.0 G/DL (32.0-36.0) Red Cell Distribution Width 12.0 % (11.6-14.8) Platelet Count 283 K/UL (150-450) Mean Platelet Volume 8.5 FL (6.5-10.1) Neutrophils (%) (Auto) 55.5 % (45.0-75.0) Lymphocytes (%) (Auto) 34.2 % (20.0-45.0) Monocytes (%) (Auto) 8.3 % (1.0-10.0) Eosinophils (%) (Auto) 1.2 % (0.0-3.0) Basophils (%) (Auto) 0.9 % (0.0-2.0) Prothrombin Time 9.9 SEC (9.30-11.50) Prothrombin Time INR 0.9 (0.9-1.1) Activated Partial Thromboplast Time 26 SEC (23-33) Sodium Level 143 MMOL/L (136-145) Potassium Level 4.8 MMOL/L (3.5-5.1) Chloride Level 106 MMOL/L (98-107) Carbon Dioxide Level 26 MMOL/L (21-32) Anion Gap 11 mmol/L (5-15) Blood Urea Nitrogen 16 mg/dL (7-18) Creatinine 0.9 MG/DL (0.55-1.30) Estimate Glomerular Filtration Rate > 60 mL/min (>60) Glucose Level 112 MG/DL (74-106) H Calcium Level 9.2 MG/DL (8.5-10.1) Magnesium Level 1.8 MG/DL (1.8-2.4) Total Bilirubin 0.5 MG/DL (0.2-1.0) Aspartate Amino Transferase (AST) 13 U/L (15-37) L Alanine Aminotransferase (ALT) 28 U/L (12-78) Alkaline Phosphatase 93 U/L (46-116) Total Creatine Kinase 86 U/L (26-308) Troponin I 0.012 ng/mL (0.000-0.056) Pro-B-Type Natriuretic Peptide 521 pg/mL (0-125) H Total Protein 6.7 G/DL (6.4-8.2) Albumin 3.4 G/DL (3.4-5.0) Globulin 3.3 g/dL Albumin/Globulin Ratio 1.0 (1.0-2.7) Urine Color Yellow Urine Appearance Slightly cloudy Urine pH 6 (4.5-8.0) Urine Specific [place] 1.025 (1.005-1.035) Urine Protein 1+ (NEGATIVE) H Urine Glucose (UA) Negative (NEGATIVE) Urine Ketones Negative (NEGATIVE) Urine Blood Negative (NEGATIVE) Urine Nitrite Negative (NEGATIVE) Urine Bilirubin Negative (NEGATIVE) Urine Urobilinogen Normal MG/DL (0.0-1.0) Urine Leukocyte Esterase 1+ (NEGATIVE) H Urine RBC 10-15 /HPF (0 - 2) H Urine WBC 0 /HPF (0 - 2) Urine Squamous Epithelial Cells Moderate /LPF (NONE/OCC) H Urine Bacteria Moderate /HPF (NONE) H Urine Opiates Screen Negative (NEGATIVE) Urine Barbiturates Screen Negative (NEGATIVE) Phencyclidine (PCP) Screen Negative (NEGATIVE) Urine Amphetamines Screen Negative (NEGATIVE) Urine Benzodiazepines Screen Negative (NEGATIVE) Urine Cocaine Screen Negative (NEGATIVE) Urine Marijuana (THC) Screen Positive (NEGATIVE) H EKG Diagnostic Results Rate: normal Rhythm: NSR ST Segments: no acute changes Rhythm Strip Diag. Results EP Interpretation: yes Rhythm: NSR, no PVC's, no ectopy Chest X-Ray Diagnostic Results Chest X-Ray Diagnostic Results : Chest X-Ray Ordered: Yes # of Views/Limited/Complete: 1 View Indication: Shortness of Breath EP Interpretation: Yes Interpretation: no effusion, no pneumothorax, other - Increase lujan bilaterally Impression: Other Electronically Signed by: Electronically signed by Rodney Oleary MD Last Vital Signs Date Time Temp Pulse Resp B/P (MAP) Pulse Ox O2 Delivery O2 Flow Rate FiO2 06/26/19 20:35 97.7 65 18 137/81 99 Room Air Status: improved Disposition: HOME, SELF-CARE Condition: Improved Scripts Prednisone* (PREDNISONE*) 20 Mg Tablet 40 MG ORAL DAILY, #10 TAB Prov: Rodney Oleary MD 06/26/19 Albuterol Sulfate* (ALBUTEROL SULFATE MDI*) 8.5 Gm Hfa.aer.ad 2 PUFF INH Q6H, #1 EA 0 Refills Prov: Rodney Oleary MD 06/26/19 Nitroglycerin (NITRO-DUR) 1 Each Patch.td24 1 EACH TD DAILY, #30 PATCH Prov: Rodney Oleary MD 06/26/19 Lorazepam* (ATIVAN*) 0.5 Mg Tablet 0.5 MG ORAL THREE TIMES A DAY, #10 TAB Prov: Rodney Oleary MD 06/26/19 Rodnye Oleary MD Jun 26, 2019 16:25
--- NOTE | 2019-06-26 16:30 | NUR ---
ED Nurse Note: Got report from NALLELY Ceballos. Patient walked in to ER due to anxiety, SOB. Patient was placed in fast track, but due to Hx of high BP in her lungs patient was transfered to bed 09. Patient AAO x4, pt getting her breathing treatment , VSS at this time.
[2019-06-26 16:55] LABS: BASOPHILS % (AUTO) 0.9 % (0.0-2.0); EOSINOPHILS % (AUTO) 1.2 % (0.0-3.0); LYMPHOCYTES % (AUTO) 34.2 % (20.0-45.0); MEAN CORPUSCULAR VOLUME 89 FL (80-99); MONOCYTES % (AUTO) 8.3 % (1.0-10.0); NEUTROPHILS % (AUTO) 55.5 % (45.0-75.0); PLATELET COUNT 283 K/UL (150-450); RED BLOOD COUNT 4.84 M/UL (4.20-5.40); WHITE BLOOD COUNT 5.2 K/UL (4.8-10.8)
[2019-06-26 17:03] LABS: INR 0.9 (0.9-1.1)
[2019-06-26 17:10] LABS: ANION GAP 11 mmol/L (5-15); BLOOD UREA NITROGEN 16 mg/dL (7-18); CALCIUM 9.2 MG/DL (8.5-10.1); CARBON DIOXIDE 26 MMOL/L (21-32); CHLORIDE 106 MMOL/L (98-107); CREATININE 0.9 MG/DL (0.55-1.30); POTASSIUM 4.8 MMOL/L (3.5-5.1); SODIUM 143 MMOL/L (136-145)
[2019-06-26 17:20] LABS: ALANINE AMINOTRANSFERASE 28 U/L (12-78); ALBUMIN 3.4 G/DL (3.4-5.0); ALKALINE PHOSPHATASE 93 U/L (46-116); ASPARTATE AMINO TRANSFERASE 13 U/L (15-37); BILIRUBIN,TOTAL 0.5 MG/DL (0.2-1.0); CREATINE KINASE 86 U/L (26-308)
--- NOTE | 2019-06-26 17:22 | Diagnostic Imaging Report ---
EXAM: XR Chest, 1 View CLINICAL HISTORY: COUGH TECHNIQUE: Frontal view of the chest. COMPARISON: Chest x-ray dated 05/23/2019 FINDINGS: Lungs: Unremarkable. Pleural space: Unremarkable. Heart: Unremarkable. Mediastinum: Unremarkable. Bones/joints: Unremarkable. IMPRESSION: Normal chest x-ray.
[2019-06-26] MEDS ORDERED: Albuterol ud Inhalation ONE (17:45)
[2019-06-26 17:51] LABS: BILIRUBIN, URINE NEGATIVE (NEGATIVE); GLUCOSE, URINE (UA) NEGATIVE (NEGATIVE); KETONES,URINE NEGATIVE (NEGATIVE); LEUKOCYTE ESTERASE ,URINE 1+ (NEGATIVE); NITRITE,URINE NEGATIVE (NEGATIVE); PH,URINE 6 (4.5-8.0); PROTEIN,URINE 1+ (NEGATIVE); UROBILINOGEN,URINE NORMAL MG/DL (0.0-1.0)
[2019-06-26 17:53] LABS: APPEARANCE,URINE SLIGHTLY CLOUDY; COLOR,URINE YELLOW
--- NOTE | 2019-06-26 19:15 | NUR ---
ED Nurse Note: Report received from NALLELY Andrade. Pt is in no acute distress at this time. Will continue to monitor.
[2019-06-26] MEDS ORDERED: NITRO-DUR1 EAC1 TD (20:24)
[2019-06-26] MEDS ORDERED: PREDNISONE20 MG ORAL (20:24)
[2019-06-26] MEDS ORDERED: ALBUTEROL SULF8.5 GM INH (20:24)
[2019-06-26] MEDS ORDERED: ATIVAN0.5 MG ORAL (20:24)
[2019-06-26 20:35] VITALS: BP 137/81
--- NOTE | 2019-06-26 20:35 | NUR ---
ER DISCHARGE NOTE: Patient is cleared to be discharged per ERMD, pt is aox4, on room air, with stable vital signs. pt was given dc and prescription instructions, pt was able to verbalize understanding, pt id band and iv site removed without complications. pt is able to ambulate with steady gait. pt took all belongings.
== END 2019-06-26 20:35 | disposition home or self-care (01) ==
LOC: EMR 16:40
DX: J98.01 Acute bronchospasm (principal); K76.6 Portal hypertension; F41.9 Anxiety disorder, unspecified; I25.2 Old myocardial infarction; I10 Essential (primary) hypertension; J44.9 Chronic obstructive pulmonary disease, unspecified; F12.90 Cannabis use, unspecified, uncomplicated; Z88.6 Allergy status to analgesic agent; Z88.0 Allergy status to penicillin; F32.9 Major depressive disorder, single episode, unspecified; Z87.891 Personal history of nicotine dependence; I11.9 Hypertensive heart disease without heart failure; I25.10 Atherosclerotic heart disease of native coronary artery without angina pectoris
CPT/HCPCS: 36415; 71045; 80053; 80307; 81003; 82550; 83735; 83880; 84484; 85025; 85610; 85730; 87086; 93005; 96361; 96374; 96375; 99284; J1200; J2930; J7030